=== PATIENT | male | born 1935 | race Caucasian/White ===

== ENCOUNTER → 2023-04-25 12:14 | Outpatient (REF) | payer BC, SELFPAY ==
[2023-04-25 13:50] LABS: PSA, Total - Diagnostic 0.71 ng/ml (0.0-4.0)
== END ==
LOC: REG 12:14
PROVIDERS: ATTENDING PHYSICIAN Internal Medicine Hematology & Oncology; FAMILY PHYSICIAN Family Medicine; REFERRING PHYSICIAN Internal Medicine
DX: C61 Malignant neoplasm of prostate (principal); C79.51 Secondary malignant neoplasm of bone
CPT/HCPCS: 36415; 84153

== ENCOUNTER → 2023-06-07 09:38 | Outpatient (REF) | payer BC, SELFPAY ==
[2023-06-07 10:13] LABS: % Basophils 0.8 % (0-2); % Eosinophils 5.2 % (0-6); % Immature Granulocytes 0.4 % (0-0.5); % Lymphocytes 8.9 % (20.5-51.1); % Monocytes 9.9 % (1.7-9.3); % Neutrophils 74.8 % (42.2-75.2); Absolute Eosinophils 0.3 10^3/uL (0-0.7); Absolute Lymphocytes 0.4 10^3/uL (1.2-3.4); Absolute Monocytes 0.5 10^3/uL (0.1-0.6); Absolute Neutrophils 3.7 10^3/uL (1.4-6.5); Hematocrit 37.8 % (39.0-52.0); Hemoglobin 12.3 g/dL (13.0-18.0); Mean Corp Hgb Conc. 32.5 g/dL (33.0-37.0); Mean Corpuscular Hgb 30.8 pg (27.0-31.0); Mean Corpuscular Volume 94.5 fL (80.0-94.0); Mean Platelet Volume 10.5 fL (7.4-10.4); Nucleated Red Blood Cells % 0 % (-); Platelet Count 188 10^3/uL (130-400); Red Cell Dist. Width 13.2 % (11.5-14.5)
[2023-06-07 10:40] LABS: ALT (SGPT) 19 U/L (0-50); AST (SGOT) 33 U/L (17-59); Albumin 3.9 g/dl (3.5-5.0); Alkaline Phosphatase 95 U/L (38-126); Blood Urea Nitrogen 18 mg/dl (9-20); Calcium 9.5 mg/dl (8.4-10.2); Carbon Dioxide 32 mmol/L (22-30); Chloride 101 mmol/L (98-107); Glucose 101 mg/dl (70-99); Potassium 4.4 mmol/L (3.5-5.1); Sodium 139 mmol/L (135-145); Total Bilirubin 0.4 mg/dl (0.2-1.3); Total Protein 6.4 g/dl (6.3-8.2); eGFR > 60.00
[2023-06-07 11:10] LABS: PSA, Total - Diagnostic 0.78 ng/ml (0.0-4.0)
== END ==
LOC: REG 09:38
PROVIDERS: ATTENDING PHYSICIAN Internal Medicine Hematology & Oncology; FAMILY PHYSICIAN Family Medicine; REFERRING PHYSICIAN Internal Medicine
DX: C61 Malignant neoplasm of prostate (principal); C79.51 Secondary malignant neoplasm of bone
CPT/HCPCS: 36415; 80053; 84153; 85025

== ENCOUNTER → 2023-07-20 08:46 | Outpatient (REF) | payer BC, SELFPAY ==
[2023-07-20 12:37] LABS: PSA, Total - Diagnostic 0.73 ng/ml (0.0-4.0)
== END ==
LOC: REG 08:46
PROVIDERS: ATTENDING PHYSICIAN Internal Medicine Hematology & Oncology; FAMILY PHYSICIAN Family Medicine
DX: C61 Malignant neoplasm of prostate (principal); C79.51 Secondary malignant neoplasm of bone
CPT/HCPCS: 36415; 84153

== ENCOUNTER → 2023-09-15 08:51 | Outpatient (REF) | payer BC, SELFPAY ==
[2023-09-15 11:02] LABS: ALT (SGPT) 22 U/L (0-50); AST (SGOT) 37 U/L (17-59); Albumin 4.3 g/dl (3.5-5.0); Alkaline Phosphatase 94 U/L (38-126); Blood Urea Nitrogen 21 mg/dl (9-20); Calcium 10.2 mg/dl (8.4-10.2); Carbon Dioxide 29 mmol/L (22-30); Chloride 105 mmol/L (98-107); Glucose 90 mg/dl (70-99); Potassium 5.2 mmol/L (3.5-5.1); Sodium 141 mmol/L (135-145); Total Bilirubin 0.5 mg/dl (0.2-1.3); eGFR > 60.00
[2023-09-15 11:26] LABS: PSA, Total - Diagnostic 1.04 ng/ml (0.0-4.0)
== END ==
LOC: REG 08:51
PROVIDERS: ATTENDING PHYSICIAN Internal Medicine Hematology & Oncology; FAMILY PHYSICIAN Family Medicine
DX: C61 Malignant neoplasm of prostate (principal); C79.51 Secondary malignant neoplasm of bone
CPT/HCPCS: 36415; 80053; 84153

== ENCOUNTER → 2023-10-12 12:43 | Outpatient (REF) | payer BC, SELFPAY ==
[2023-10-12 14:51] LABS: ALT (SGPT) 24 U/L (0-50); AST (SGOT) 39 U/L (17-59); Albumin 4.4 g/dl (3.5-5.0); Alkaline Phosphatase 98 U/L (38-126); Blood Urea Nitrogen 23 mg/dl (9-20); Calcium 9.8 mg/dl (8.4-10.2); Carbon Dioxide 25 mmol/L (22-30); Chloride 105 mmol/L (98-107); Glucose 88 mg/dl (70-99); Potassium 4.5 mmol/L (3.5-5.1); Sodium 139 mmol/L (135-145); Total Bilirubin 0.6 mg/dl (0.2-1.3); eGFR > 60.00
[2023-10-12 15:22] LABS: PSA, Total - Diagnostic 0.98 ng/ml (0.0-4.0)
== END ==
LOC: REG 12:43
PROVIDERS: ATTENDING PHYSICIAN Internal Medicine Hematology & Oncology; FAMILY PHYSICIAN Family Medicine; REFERRING PHYSICIAN Internal Medicine
DX: C61 Malignant neoplasm of prostate (principal); C79.51 Secondary malignant neoplasm of bone
CPT/HCPCS: 36415; 80053; 84153

== ENCOUNTER → 2023-12-07 08:50 | Outpatient (REF) | payer BC, SELFPAY ==
[2023-12-07 10:13] LABS: % Basophils 1.3 % (0-2); % Eosinophils 7.4 % (0-6); % Immature Granulocytes 0.2 % (0-0.5); % Lymphocytes 11.6 % (20.5-51.1); % Monocytes 11.8 % (1.7-9.3); % Neutrophils 67.7 % (42.2-75.2); Absolute Basophils 0.1 10^3/uL (0-0.2); Absolute Eosinophils 0.3 10^3/uL (0-0.7); Absolute Lymphocytes 0.5 10^3/uL (1.2-3.4); Absolute Monocytes 0.5 10^3/uL (0.1-0.6); Hematocrit 36.3 % (39.0-52.0); Hemoglobin 11.9 g/dL (13.0-18.0); Mean Corp Hgb Conc. 32.8 g/dL (33.0-37.0); Mean Corpuscular Hgb 30.1 pg (27.0-31.0); Mean Corpuscular Volume 91.7 fL (80.0-94.0); Mean Platelet Volume 11.2 fL (7.4-10.4); Nucleated Red Blood Cells % 0 % (-); Platelet Count 161 10^3/uL (130-400); Red Blood Cell Count 3.96 10^6/uL (4.70-6.10); Red Cell Dist. Width 13.2 % (11.5-14.5); White Blood Cell Count 4.5 10^3/uL (4.8-10.8)
[2023-12-07 11:22] LABS: ALT (SGPT) 25 U/L (0-50); AST (SGOT) 40 U/L (17-59); Albumin 4.4 g/dl (3.5-5.0); Alkaline Phosphatase 86 U/L (38-126); Blood Urea Nitrogen 22 mg/dl (9-20); Calcium 9.8 mg/dl (8.4-10.2); Carbon Dioxide 28 mmol/L (22-30); Chloride 102 mmol/L (98-107); Glucose 84 mg/dl (70-99); Potassium 4.5 mmol/L (3.5-5.1); Sodium 141 mmol/L (135-145); Total Bilirubin 0.6 mg/dl (0.2-1.3); Total Protein 6.8 g/dl (6.3-8.2); eGFR > 60.00
[2023-12-07 11:48] LABS: PSA, Total - Diagnostic 1.16 ng/ml (0.0-4.0)
== END ==
LOC: REG 08:50
PROVIDERS: ATTENDING PHYSICIAN Internal Medicine Hematology & Oncology; FAMILY PHYSICIAN Family Medicine; REFERRING PHYSICIAN Internal Medicine
DX: C61 Malignant neoplasm of prostate (principal); C79.51 Secondary malignant neoplasm of bone
CPT/HCPCS: 36415; 80053; 84153; 85025

== ENCOUNTER → 2024-02-23 10:16 | Outpatient (REF) | payer BC, SELFPAY ==
[2024-02-23 12:41] LABS: HDL Cholesterol 73 mg/dl; LDL Cholesterol, Calculated 112 mg/dl; Total Cholesterol 202 mg/dl (50-199); Triglyceride 89 mg/dl (10-149); Very Low Density Lipoprotein 17 mg/dl (0-30)
== END ==
LOC: REG 10:16
PROVIDERS: ATTENDING PHYSICIAN Internal Medicine; FAMILY PHYSICIAN Family Medicine
DX: E78.2 Mixed hyperlipidemia (principal)
CPT/HCPCS: 36415; 80061

== ENCOUNTER 2024-03-22 06:24 | Day surgery (SDC) | payer MEDICARE, BC, SELFPAY ==
[2024-03-08 10:45] LABS: Hematocrit 39.5 % (39.0-52.0); Hemoglobin 12.5 g/dL (13.0-18.0); Mean Corp Hgb Conc. 31.6 g/dL (33.0-37.0); Mean Corpuscular Hgb 30.6 pg (27.0-31.0); Mean Corpuscular Volume 96.6 fL (80.0-94.0); Mean Platelet Volume 12.1 fL (7.4-10.4); Platelet Count 147 10^3/uL (130-400); Red Blood Cell Count 4.09 10^6/uL (4.70-6.10); Red Cell Dist. Width 13.6 % (11.5-14.5); White Blood Cell Count 4.5 10^3/uL (4.8-10.8)
[2024-03-08 10:54] LABS: APTT 30.4 Sec (23.4-35.0); INR 0.99; PT 13.6 Sec (11.4-14.6)
[2024-03-08 11:32] LABS: Blood Urea Nitrogen 19 mg/dl (9-20); Calcium 9.4 mg/dl (8.4-10.2); Carbon Dioxide 32 mmol/L (22-30); Chloride 100 mmol/L (98-107); Glucose 88 mg/dl (70-99); Potassium 4.1 mmol/L (3.5-5.1); Sodium 139 mmol/L (135-145); eGFR > 60.00
[2024-03-08 12:30] VITALS: BMI 26.4
[2024-03-22] VITALS (18 sets, daily range): BP systolic 97–163; BP diastolic 60–104; BMI 26.4
[2024-03-22] MEDS: NORMOSOL-R/PLASMALYTE-A 1000 IV (09:39)
--- NOTE | 2024-03-22 13:07 | W.IMMPOSTOP ---
Surgical Immed Post Op Note
-
Primary Surgeon: Kalina
Assisting Surgeon: none
Pre-op Diagnosis: BPH, prostate cancer, urethral polyp
Post-op Diagnosis: same
Procedure Performed: TURP, prostatic urethral biopsy
Anesthesia Type: gen
Specimen / Cultures: urethral poly
Estimated Blood Loss: 5cc
Complications: none
Operative Findings: pocket of necrotic tumor within prostate just proximal to verumontanum on L side
[2024-03-22] MEDS: SUBLIMAZE 50 MCG IV (13:13)
[2024-03-22] MEDS: DETROL LA 4 MG PO (14:20)
[2024-03-22] MEDS: LASIX 40 MG PO (20:41)
[2024-03-22] MEDS: VIBRAMYCIN 100 MG PO (20:41)
[2024-03-22] MEDS: FEOSOL 325 MG PO (20:42)
[2024-03-22] MEDS: MELATONIN 6 MG PO (21:06)
[2024-03-23 03:09] VITALS: BMI 26.4
[2024-03-23 06:00] VITALS: BMI 25.7
[2024-03-23] MEDS: VIBRAMYCIN 100 MG PO (07:34)
[2024-03-23 07:35] VITALS: BP 146/88
[2024-03-23] MEDS: FEOSOL 325 MG PO (07:35)
[2024-03-23] MEDS: FLOMAX 0.4 MG PO (07:35)
[2024-03-23] MEDS: METAMUCIL, KONSYL 1 PACKET PO (07:35)
[2024-03-23] MEDS: TOPROL XL 25 MG PO (07:35)
[2024-03-23] MEDS: LASIX 40 MG PO (07:35)
[2024-03-23 08:53] LABS: Hematocrit 33.6 % (39.0-52.0); Hemoglobin 11.2 g/dL (13.0-18.0); Mean Corp Hgb Conc. 33.3 g/dL (33.0-37.0); Mean Corpuscular Hgb 30.4 pg (27.0-31.0); Mean Corpuscular Volume 91.3 fL (80.0-94.0); Mean Platelet Volume 10.9 fL (7.4-10.4); Platelet Count 141 10^3/uL (130-400); Red Blood Cell Count 3.68 10^6/uL (4.70-6.10); Red Cell Dist. Width 13.1 % (11.5-14.5); White Blood Cell Count 8.2 10^3/uL (4.8-10.8)
--- NOTE | 2024-03-23 09:03 | W.PN.URO.CBU ---
Today's Communication / Plan
-
Trial of void
Assessment / Plan
-
89M POD 1 s/p TURP, urethral biopsy
- remove landa
- trial of void
- likely discharge
Diagnosis
-
Date of Service: March 23, 2024
-
Patient Diagnosis:
BPH
Prostate cancer
urethral polyp
Post Op Day: 1 s/p TURP, urethral biopsy
Subjective
-
no events overnight
Objective
-
Vital Signs
Temp Pulse Resp BP Pulse Ox
97.6 F 71 16 146/88 97
03/23/24 07:35 03/23/24 07:35 03/23/24 07:35 03/23/24 07:35 03/23/24 07:35
Intake and Output
03/22/24 03/23/24 03/24/24
06:59 06:59 06:59
Intake Total 1455 / 1455
Output Total 5250 / 5250
Balance -3795 / -3795
Intake:
Oral fluids 480 / 480
IV fluids (Total) 975 / 975
Normosol 300 / 300
Output:
Urine, Landa 1999 / 1999
Urine, Voided 1100 / 1100
True Urine Output from [facility] 2149 / 2149
Laboratory Results
03/23/24 07:27
Physical Exam
-
General - well developed, well nourished, no acute distress
Chest - clear
Abdomen - soft, non-tender
- landa in place, clear urine slow [facility]
--- NOTE | 2024-03-23 09:27 | PTCARENOTE ---
Gallagher taken out per
[2024-03-23 09:53] LABS: Blood Urea Nitrogen 19 mg/dl (9-20); Calcium 9.2 mg/dl (8.4-10.2); Carbon Dioxide 27 mmol/L (22-30); Chloride 99 mmol/L (98-107); Estimated Creatinine Clearance 52 ml/min; Glucose 108 mg/dl (70-99); Potassium 3.9 mmol/L (3.5-5.1); Sodium 137 mmol/L (135-145); eGFR > 60.00
--- NOTE | 2024-03-23 12:24 | CM ---
Patient seen bedside, patient admitted same day surgery, initial assessment completed. Patient resides independently in a private home, multiple levels, a few steps to enter. Patient denies the use of DME at home, reports VN in the past, [facility]
in past. Patient confirms PCP Maurisio Barajas, pharmacy [facility], confirms prescription coverage. Patient denies needs from CM upon discharge, confirms he has transportation home. CM will continue to follow for all discharge planning needs.
Plan; home with no needs.
[2024-03-23 15:44] VITALS: BP 138/85
== END 2024-03-23 16:38 | disposition home or self-care (01) ==
LOC: SDS 06:24
PROVIDERS: ATTENDING PHYSICIAN Urology; FAMILY PHYSICIAN Family Medicine; OTHER PHYSICIAN Internal Medicine
DX: C61 Malignant neoplasm of prostate (principal); N40.1 Benign prostatic hyperplasia with lower urinary tract symptoms; N36.2 Urethral caruncle; N13.8 Other obstructive and reflux uropathy; C79.19 Secondary malignant neoplasm of other urinary organs
CPT/HCPCS: 52601; 52224; 88305; 36415; 80048; 85027; 85610; 85730

== ENCOUNTER → 2024-04-06 10:56 | Outpatient (REF) | payer MEDICARE, BC, SELFPAY | LOC: CLAB 10:56 | PROVIDERS: ATTENDING PHYSICIAN Urology; FAMILY PHYSICIAN Family Medicine | DX: N39.0 Urinary tract infection, site not specified (principal) | CPT/HCPCS: 87086 ==

== ENCOUNTER 2024-04-24 08:29 | Emergency (ER) | payer MEDICARE, BC, SELFPAY ==
[2024-04-24] VITALS (9 sets, daily range): BP systolic 121–147; BP diastolic 71–90; BMI 23.3
--- NOTE | 2024-04-24 08:48 | ED.GENMED ---
ED Provider Triage
<Johnny Lane PA-C - Last Filed: 04/24/24 08:50>
-
Patient seen by provider in Triage?: Seen in Triage
Attestation: A medical screening examination has been initiated by a qualified medical provider. Based on the assessment performed at this time, it has been determined that an emergent medical condition may exist and the patient has been informed
that further medical evaluation and possible additional diagnostic testing may be needed.
HPI: 89-year-old male presents to the emergency department for evaluation of left post ocular pain associated with dizziness/lightheadedness and vision changes. He reports blurry vision yesterday, diplopia this morning however vision symptoms have
now resolved. Did not perform cover-uncover testing. Was able to ambulate into the ED without gait deficit. No chest pain or shortness of breath
GENERAL: Alert , in no apparent distress
EYE: No visual abnormalities.
NECK: Trachea midline
ENT: No visible abnormalities.
LUNGS: No acute respiratory distress
NEUROLOGICAL: Alert and oriented. Moving all extremities freely. No extraocular motion deficits appreciable on exam
SKIN: Skin intact. No visible changes.
MUSCULOSKELETAL: Moving extremities normally
PSYCH: Normal and appropriate interaction.
This is a medical evaluation conducted in person to initiate diagnostic evaluation and provide initial therapeutics. Please see further documentation by the treating clinician.
History of Present Illness
<Johnny Lane PA-C - Last Filed: 04/24/24 08:50>
General
Chief Complaint: Visual Problem
Time Seen by Provider: 04/24/24 10:58
<Chris Mohan PA-C - Last Filed: 04/24/24 17:59>
General
Source: patient
Exam Limitations: none
History of Present Illness
History of Present Illness:
89-year-old male presents complaining of pain behind his left eye for about 1 week. He also notes blurry vision out of both eyes. Occasionally the vision is double out of both eyes. He denies any unilateral arm numbness or weakness. No chest
pain abdominal pain or shortness of breath. No neck pain. He is on Xarelto for history of A-fib and has a pacemaker. No fevers. No other complaints at this time
Past History
<Johnny Lane PA-C - Last Filed: 04/24/24 08:50>
Past History
ED Past Medical History: Arrthythmia and Cancer
ED Past Surgical History: Orthopedic, Urological and Other (Pacemaker placement inguinal hernia)
Social History
Tobacco: Non-smoker
Alcohol: None
Drug: None
Personal:
Living: with family
Employment: Retired
Family History
Family History: Other (Noncontributory)
Phy Exam
<Chris Mohan PA-C - Last Filed: 04/24/24 17:59>
Physical Exam
Physical Exam:
General: Well-appearing male no acute respiratory distress
HEENT: Normocephalic atraumatic pupils equal round reactive to light extract motions are intact
Heart: Regular rate and rhythm no murmurs
Lungs: Clear no wheeze
Neurologic exam: Alert and oriented no facial asymmetry no drift finger-nose [id number] intact. No dysarthria or aphasia. Visual davis intact
Extremities: No cyanosis
Course
<Johnny Lane PA-C - Last Filed: 04/24/24 08:50>
Orders/Labs/Results
Orders:
Orders
04/24/24 08:49
Electrocardiogram (*1) Urgent
Reason for Study: Vertigo / Dizzy
CT Head W/o Iv Contrast Urgent
Comment:
Reason For Exam: headache/lightheaded/blurry vision
EKG- Treatment ONCE
04/24/24 08:52
C-Reactive Protein Urgent
Comment: ADD ON
Complete Blood Count/With Diff Urgent
Comprehensive Metabolic Panel Urgent
Erythrocyte Sed Rate Urgent
Comment: ADD ON
04/24/24 11:12
Add On- LAB Urgent
Tests Added?: sed rate, crp
04/24/24 13:01
Acetaminophen [Tylenol] 650 mg .ROUTE .STK-MED ONE
04/24/24 13:02
Acetaminophen [Tylenol] 650 mg PO NOW STA
04/24/24 13:11
0.9% Sodium Chloride 500 ml [Nss] 500 ml IV BOLUS
Prochlorperazine [Compazine] 5 mg IV NOW STA
04/24/24 13:24
Urinalysis Reflex To Culture Urgent
Date Specimen was Collected: 04/24/24
Time Specimen was Collected: 13:08
Urine Microscopic Reflex Cult Urgent
Urine Culture Urgent
RERE Source: U
Specimen Description:
Date Specimen was Collected: 04/24/24
Time Specimen was Collected: 13:08
04/24/24 16:08
Diphenhydramine [Benadryl] 25 mg IV NOW STA
Metoclopramide [Reglan] 10 mg IV NOW STA
04/24/24 16:28
CefTRIAXone [Rocephin] 1,000 mg IV NOW STA
Abnormal Lab Results
04/24/24 04/24/24
08:52 13:24
RBC 3.32 L 10^6/uL
(4.70-6.10)
Hgb 10.1 L g/dL
(13.0-18.0)
Hct 31.9 L %
(39.0-52.0)
MCV 96.1 H fL
(80.0-94.0)
MCHC 31.7 L g/dL
(33.0-37.0)
RDW 14.6 H %
(11.5-14.5)
Absolute Lymphs (auto) 0.3 L 10^3/uL
(1.2-3.4)
Neutrophils % 78.5 H %
(42.2-75.2)
Lymphocytes % 5.5 L %
(20.5-51.1)
Monocytes % 10.4 H %
(1.7-9.3)
ESR 50 H mm/hour
(0-20)
BUN 27 H mg/dl
(9-20)
Alkaline Phosphatase 135 H U/L
(38-126)
C-Reactive Protein 10.50 H mg/L
(0.0-10.00)
Ur Occult Blood Reflex 4+ A
(Negative)
Leukocyte Esterase Rfl 3+ A
(Negative)
Urine RBC 50-60 A /HPF
(0-2)
Urine WBC (Reflex) 30-40 A /HPF
(0-5)
Urine Bacteria (Reflex) Few A
(Negative)
Urine Albumin (Reflex) 2+ A
(Neg - Trace)
04/24/24 08:52
04/24/24 08:52
Vital Signs
Initial and Last Documented VS:
Initial Vital Signs
Temp Pulse Resp BP Pulse Ox
98.6 F 74 16 123/75 99
04/24/24 08:45 04/24/24 08:45 04/24/24 08:45 04/24/24 08:45 04/24/24 08:45
Last Documented Vital Signs
Temp Pulse Resp BP Pulse Ox
98.6 F 91 16 146/90 98
04/24/24 08:45 04/24/24 13:15 04/24/24 13:15 04/24/24 13:14 04/24/24 12:00
<Chris Mohan PA-C - Last Filed: 04/24/24 17:59>
Orders/Labs/Results
Orders:
Orders
04/24/24 08:49
Electrocardiogram (*1) Urgent
Reason for Study: Vertigo / Dizzy
CT Head W/o Iv Contrast Urgent
Comment:
Reason For Exam: headache/lightheaded/blurry vision
EKG- Treatment ONCE
04/24/24 08:52
C-Reactive Protein Urgent
Comment: ADD ON
Complete Blood Count/With Diff Urgent
Comprehensive Metabolic Panel Urgent
Erythrocyte Sed Rate Urgent
Comment: ADD ON
04/24/24 11:12
Add On- LAB Urgent
Tests Added?: sed rate, crp
04/24/24 13:01
Acetaminophen [Tylenol] 650 mg .ROUTE .STK-MED ONE
04/24/24 13:02
Acetaminophen [Tylenol] 650 mg PO NOW STA
04/24/24 13:11
0.9% Sodium Chloride 500 ml [Nss] 500 ml IV BOLUS
Prochlorperazine [Compazine] 5 mg IV NOW STA
04/24/24 13:24
Urinalysis Reflex To Culture Urgent
Date Specimen was Collected: 04/24/24
Time Specimen was Collected: 13:08
Urine Microscopic Reflex Cult Urgent
Urine Culture Urgent
RERE Source: U
Specimen Description:
Date Specimen was Collected: 04/24/24
Time Specimen was Collected: 13:08
04/24/24 16:08
Diphenhydramine [Benadryl] 25 mg IV NOW STA
Metoclopramide [Reglan] 10 mg IV NOW STA
04/24/24 16:28
CefTRIAXone [Rocephin] 1,000 mg IV NOW STA
Abnormal Lab Results
04/24/24 04/24/24
08:52 13:24
RBC 3.32 L 10^6/uL
(4.70-6.10)
Hgb 10.1 L g/dL
(13.0-18.0)
Hct 31.9 L %
(39.0-52.0)
MCV 96.1 H fL
(80.0-94.0)
MCHC 31.7 L g/dL
(33.0-37.0)
RDW 14.6 H %
(11.5-14.5)
Absolute Lymphs (auto) 0.3 L 10^3/uL
(1.2-3.4)
Neutrophils % 78.5 H %
(42.2-75.2)
Lymphocytes % 5.5 L %
(20.5-51.1)
Monocytes % 10.4 H %
(1.7-9.3)
ESR 50 H mm/hour
(0-20)
BUN 27 H mg/dl
(9-20)
Alkaline Phosphatase 135 H U/L
(38-126)
C-Reactive Protein 10.50 H mg/L
(0.0-10.00)
Ur Occult Blood Reflex 4+ A
(Negative)
Leukocyte Esterase Rfl 3+ A
(Negative)
Urine RBC 50-60 A /HPF
(0-2)
Urine WBC (Reflex) 30-40 A /HPF
(0-5)
Urine Bacteria (Reflex) Few A
(Negative)
Urine Albumin (Reflex) 2+ A
(Neg - Trace)
04/24/24 08:52
04/24/24 08:52
Vital Signs
Initial and Last Documented VS:
Initial Vital Signs
Temp Pulse Resp BP Pulse Ox
98.6 F 74 16 123/75 99
04/24/24 08:45 04/24/24 08:45 04/24/24 08:45 04/24/24 08:45 04/24/24 08:45
Last Documented Vital Signs
Temp Pulse Resp BP Pulse Ox
98.6 F 91 16 146/90 98
04/24/24 08:45 04/24/24 13:15 04/24/24 13:15 04/24/24 13:14 04/24/24 12:00
<Ezequiel Chamberlain, DO - Last Filed: 04/24/24 13:15>
Orders/Labs/Results
Orders:
Orders
04/24/24 08:49
Electrocardiogram (*1) Urgent
Reason for Study: Vertigo / Dizzy
CT Head W/o Iv Contrast Urgent
Comment:
Reason For Exam: headache/lightheaded/blurry vision
EKG- Treatment ONCE
04/24/24 08:52
C-Reactive Protein Urgent
Comment: ADD ON
Complete Blood Count/With Diff Urgent
Comprehensive Metabolic Panel Urgent
Erythrocyte Sed Rate Urgent
Comment: ADD ON
04/24/24 11:12
Add On- LAB Urgent
Tests Added?: sed rate, crp
04/24/24 13:01
Acetaminophen [Tylenol] 650 mg .ROUTE .STK-MED ONE
04/24/24 13:02
Acetaminophen [Tylenol] 650 mg PO NOW STA
04/24/24 13:11
0.9% Sodium Chloride 500 ml [Nss] 500 ml IV BOLUS
Prochlorperazine [Compazine] 5 mg IV NOW STA
04/24/24 13:24
Urinalysis Reflex To Culture Urgent
Date Specimen was Collected: 04/24/24
Time Specimen was Collected: 13:08
Urine Microscopic Reflex Cult Urgent
Urine Culture Urgent
RERE Source: U
Specimen Description:
Date Specimen was Collected: 04/24/24
Time Specimen was Collected: 13:08
04/24/24 16:08
Diphenhydramine [Benadryl] 25 mg IV NOW STA
Metoclopramide [Reglan] 10 mg IV NOW STA
04/24/24 16:28
CefTRIAXone [Rocephin] 1,000 mg IV NOW STA
Abnormal Lab Results
04/24/24 04/24/24
08:52 13:24
RBC 3.32 L 10^6/uL
(4.70-6.10)
Hgb 10.1 L g/dL
(13.0-18.0)
Hct 31.9 L %
(39.0-52.0)
MCV 96.1 H fL
(80.0-94.0)
MCHC 31.7 L g/dL
(33.0-37.0)
RDW 14.6 H %
(11.5-14.5)
Absolute Lymphs (auto) 0.3 L 10^3/uL
(1.2-3.4)
Neutrophils % 78.5 H %
(42.2-75.2)
Lymphocytes % 5.5 L %
(20.5-51.1)
Monocytes % 10.4 H %
(1.7-9.3)
ESR 50 H mm/hour
(0-20)
BUN 27 H mg/dl
(9-20)
Alkaline Phosphatase 135 H U/L
(38-126)
C-Reactive Protein 10.50 H mg/L
(0.0-10.00)
Ur Occult Blood Reflex 4+ A
(Negative)
Leukocyte Esterase Rfl 3+ A
(Negative)
Urine RBC 50-60 A /HPF
(0-2)
Urine WBC (Reflex) 30-40 A /HPF
(0-5)
Urine Bacteria (Reflex) Few A
(Negative)
Urine Albumin (Reflex) 2+ A
(Neg - Trace)
04/24/24 08:52
04/24/24 08:52
Vital Signs
Initial and Last Documented VS:
Initial Vital Signs
Temp Pulse Resp BP Pulse Ox
98.6 F 74 16 123/75 99
04/24/24 08:45 04/24/24 08:45 04/24/24 08:45 04/24/24 08:45 04/24/24 08:45
Last Documented Vital Signs
Temp Pulse Resp BP Pulse Ox
98.6 F 91 16 146/90 98
04/24/24 08:45 04/24/24 13:15 04/24/24 13:15 04/24/24 13:14 04/24/24 12:00
<Chris Mohan PA-C - Last Filed: 04/24/24 17:59>
MDM/Problems Addressed
Differential Diagnosis Includes:
Patient notes generalized unwell sensation with occasional double vision as well as a headache behind the left eye. Consider vasculitis versus CVA versus migraine versus other infectious source
CT head negative. Labs reviewed without significant finding. Urinalysis does suggest urinary tract infection. Concern for possible migraine causing symptoms. Given Hood notes improvement. Now ambulatory. Discussed with
neurology. No indication for admission at this time. Discussed with emergency room attending. Will give Rocephin here for UTI and sent home on Keflex with instructions to follow-up with family doctor
<Chris Mohan PA-C - Last Filed: 04/24/24 17:59>
*Critical Care Note
Total Time (30-74mins, 75-104mins- exclusive of procedures): Not Applicable
ED Attending Note
<Johnny Lane PA-C - Last Filed: 04/24/24 08:50>
-
Portions of this chart may have been created with voice recognition software.� Occasional wrong word or��sound alike� substitutions may have occurred due to the inherent limitations of voice recognition software.
<Ezequiel Chamberlain DO - Last Filed: 04/24/24 13:15>
ED Attending Note
Patient seen and examined by attending physician: Yes
I performed the substantive portion of visit, reviewed & personally made and approve the management plan that is documented in note by myself or CLEVE.: Yes
ED Attending Note:
Seen with PA examined independently 89-year-old male history of brain cancer as a child, no residual seizures, occasionally gets migraines through his adult life none recently has been having some headaches pain behind his eye recently double
vision, CAT scan noted inflammatory markers are noted we will try fluids and Compazine hold on NSAIDs as he is on Xarelto
Discharge Plan
Departure
Patient Disposition: Home (Routine Discharge)
Date of Disposition: 04/24/24
Time of Disposition: 17:53
Patient with high blood pressure during this ER visit?: No
Discharge Problem:
Headache, Acute UTI
Instructions: Headache, Adult (DC)
Prescriptions:
New
cefdinir 300 mg capsule
300 mg PO BID Qty: 14 0RF
No Action
metoprolol succinate 25 MG tablet extended release 24 hr
25 mg PO DAILY
Patient Comments:
05/01/21 HOLD for sbp<110
Xarelto 20 MG tablet
20 mg PO DAILY
furosemide 40 MG tablet
40 mg PO BID
multivitamin Tablet
1 tab PO 1400
psyllium Packet
1 packet PO DAILY
doxycycline monohydrate 100 mg Capsule
100 mg PO BID
ferrous sulfate 325 mg (65 mg iron) Tablet
325 mg PO BID
Phospha 250 Neutral 250 mg Tablet
1 tab PO 1400
tamsulosin 0.4 MG capsule
0.4 mg PO DAILY
Referrals:
Maurisio Barajas MD [Family Provider] -
Activity Restrictions/Additional Instructions:
Take antibiotics as directed return here for [place] otherwise follow-up with your doctor
Interventions
Interventions:
*Risk Screen - Suicide Last Done: 04/24/24 08:47
*General Assessment Last Done: 04/24/24 11:37
*Neglect/Abuse Screening Last Done: 04/24/24 08:47
*ED COVID-19 Vaccine History Last Done: 04/24/24 11:37
ED- Neurological Assessment Last Done: 04/24/24 11:40
ED-EENT Assessment Last Done: 04/24/24 11:40
ED Swallowing Screen Last Done: 04/24/24 11:42
Discharge Date and Time
Print Language: [id number]
[2024-04-24 09:19] LABS: % Basophils 0.7 % (0-2); % Eosinophils 4.4 % (0-6); % Immature Granulocytes 0.5 % (0-0.5); % Lymphocytes 5.5 % (20.5-51.1); % Monocytes 10.4 % (1.7-9.3); % Neutrophils 78.5 % (42.2-75.2); Absolute Eosinophils 0.3 10^3/uL (0-0.7); Absolute Lymphocytes 0.3 10^3/uL (1.2-3.4); Absolute Monocytes 0.6 10^3/uL (0.1-0.6); Absolute Neutrophils 4.6 10^3/uL (1.4-6.5); Hematocrit 31.9 % (39.0-52.0); Hemoglobin 10.1 g/dL (13.0-18.0); Mean Corp Hgb Conc. 31.7 g/dL (33.0-37.0); Mean Corpuscular Hgb 30.4 pg (27.0-31.0); Mean Corpuscular Volume 96.1 fL (80.0-94.0); Mean Platelet Volume 10.1 fL (7.4-10.4); Nucleated Red Blood Cells % 0 % (-); Platelet Count 198 10^3/uL (130-400); Red Blood Cell Count 3.32 10^6/uL (4.70-6.10); Red Cell Dist. Width 14.6 % (11.5-14.5); White Blood Cell Count 5.9 10^3/uL (4.8-10.8)
[2024-04-24 09:44] LABS: ALT (SGPT) 22 U/L (0-50); AST (SGOT) 40 U/L (17-59); Albumin 4.4 g/dl (3.5-5.0); Alkaline Phosphatase 135 U/L (38-126); Blood Urea Nitrogen 27 mg/dl (9-20); Calcium 9.2 mg/dl (8.4-10.2); Carbon Dioxide 30 mmol/L (22-30); Chloride 98 mmol/L (98-107); Glucose 90 mg/dl (70-99); Potassium 4.1 mmol/L (3.5-5.1); Sodium 137 mmol/L (135-145); Total Bilirubin 0.3 mg/dl (0.2-1.3); Total Protein 7.2 g/dl (6.3-8.2); eGFR 58.53
[2024-04-24 11:59] LABS: Erythrocyte Sed Rate 50 mm/hour (0-20)
[2024-04-24] MEDS: TYLENOL 650 MG PO (13:02)
[2024-04-24] MEDS: NSS 500 IV (13:21)
[2024-04-24] MEDS: COMPAZINE 5 MG IV (13:22)
[2024-04-24 13:46] LABS: Urine Albumin 2+ (Neg - Trace); Urine Bilirubin Negative (Negative); Urine Character Slightly Cloudy (Clear); Urine Color Yellow; Urine Glucose Negative (Negative); Urine Ketone Negative (Negative); Urine Leukocyte 3+ (Negative); Urine Nitrite Negative (Negative); Urine Occult Blood 4+ (Negative); Urine Specific Gravity 1.015 (<1.030); Urine Urobilinogen Negative (Neg - 1+)
[2024-04-24 14:03] LABS: Urine Squamous Cell 0-2 /LPF (Few)
[2024-04-24 14:04] LABS: Urine Bacteria Few (Negative); Urine Red Blood Cell 50-60 /HPF (0-2); Urine White Cell 30-40 /HPF (0-5)
[2024-04-24] MEDS: BENADRYL 25 MG IV (16:18)
[2024-04-24] MEDS: REGLAN 10 MG IV (16:19)
[2024-04-24] MEDS: ROCEPHIN 1000 MG IV (16:46)
== END 2024-04-24 18:23 | disposition home or self-care (01) ==
LOC: EMR 08:29
PROVIDERS: Physician Assistant; EMERGENCY PHYSICIAN Emergency Medicine; FAMILY PHYSICIAN Family Medicine
DX: N39.0 Urinary tract infection, site not specified (principal); R51.9 Headache, unspecified; I48.91 Unspecified atrial fibrillation; Z79.01 Long term (current) use of anticoagulants; Z95.0 Presence of cardiac pacemaker
CPT/HCPCS: 96374; 96375; 96361; 99284; 70450; 80053; 81003; 81015; 85025; 85652; 86140; 87086; 93005

== ENCOUNTER 2024-04-26 18:25 | Inpatient (IN) | payer MEDICARE, BC, SELFPAY ==
[2024-04-26] VITALS (9 sets, daily range): BP systolic 123–154; BP diastolic 70–102; BMI 23.6
--- NOTE | 2024-04-26 13:17 | ED.GENMED ---
History of Present Illness
<Allyn Dawson PA-C - Last Filed: 04/26/24 18:03>
General
Chief Complaint: Visual Problem
Source: patient
Exam Limitations: none
Time Seen by Provider: 04/26/24 13:10
Nursing documentation reviewed up to this point in time: agreed with
History of Present Illness
History of Present Illness:
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
Here for the second time in 2 days for diplopia from his left eye. Patient says it actually was preceded by a headache behind his left eye gradually several days before the diplopia started. He said he felt a pressure behind his eye that became
uncomfortable. Then he noticed that when he had his left eye open he would see blurred vision. It ultimately ended up progressing to diplopia and he was seen here on . Patient had labs and a noncontrasted head CT. At that time the only
abnormality was really a urine that looked infected. Ultimately the urine culture was no growth so the antibiotics were stopped at the family spoke with urology. Patient had a CT showing an old bilateral suboccipital craniotomy that looks stable
and no other findings other than punctate and patchy areas of low density in the periventricular and subcortical white matter bilaterally that were most likely ischemic or degenerative in origin.
The team talked to neurology and ultimately decision was made to discharge the patient home. He did not have an MRI at the time. He was told to follow-up with an eye doctor which she did today. He was seen by Dr. Parker where he was found to have
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
And he was sent here for an MRI.
Patient continues to have a very mild headache but says it is much better than it was. He took Tylenol at 9 AM. If he keeps his left eye closed he has no symptoms
Past History
<Allyn Dawson PA-C - Last Filed: 04/26/24 18:03>
Past History
ED Past Surgical History: Brain
<Brayan Diallo MD - Last Filed: >
Past History
ED Past Medical History: Arrthythmia and Cancer
ED Past Surgical History: Orthopedic, Urological and Other (Pacemaker placement inguinal hernia)
Social History
Tobacco: Non-smoker
Alcohol: None
Drug: None
Personal:
Living: with family
Employment: Retired
Family History
Family History: Other (Noncontributory)
Review of Systems
<Allyn Dawson PA-C - Last Filed: 04/26/24 18:03>
Review of Systems
Allergies reviewed?: Yes
All Other Systems: Not applicable
Phy Exam
<Allyn Dawson PA-C - Last Filed: 04/26/24 18:03>
Physical Exam
Physical Exam:
GENERAL: Alert , in no apparent distress
HEAD: NCAT
EYE: L pupil slightly irregular and sluggish; right pupil sluggist but roudned; no photophobia
NECK: Supple,full rom, nontender
ENT: o/p clr, mmm.
CARDIAC: Regular rate and rhythm . no edema
LUNGS: Clear breath sounds bilaterally, no acute respiratory distress, no wheezes/rales/rhonchi
ABDOMEN: Soft, without focal tenderness, no r/g, no cvat
NEUROLOGICAL: Alert and orientedx 4, CN III palsy (cannot look all the way up, medial and down); slight ptosis in L eyelid; keeps it shut; , 5/5 strength in UE/LE, sensation intact, romberg neg, ambulates without assistance, neg pronator drift
SKIN: Warm and dry, skin intact.
MUSCULOSKELETAL: No edema, well perfused.
PSYCH: Normal and appropriate interaction.
Course
<WINSOME Vee Last Filed: 04/26/24 18:03>
Orders/Labs/Results
Orders:
Orders
04/26/24 13:35
Electrocardiogram (*1) Stat
Reason for Study: Other
Other Reason for Exam: Headache
CT Head & Neck Angio W/wo IV Urgent
Comment:
Reason For Exam: cn III palsy, double visoin, h/a eval for aneurysm
EKG- Treatment ONCE
04/26/24 13:39
Complete Blood Count/With Diff Urgent
Comprehensive Metabolic Panel Urgent
PTT Urgent
Prothrombin Time Urgent
04/26/24 14:06
Consult Neurology [NEUROLOGY CONSULT] Urgent
Consulting Provider: Damian Lema
Was physician already notified: Yes
04/26/24 15:40
Acetaminophen [Tylenol] 650 mg PO NOW STA
04/26/24 16:48
MR Brain W/o & With Contrast Routine
Comment:
Reason For Exam: Left 3rd nerve palsy
Recent pill cam endoscopy?: No
Lorazepam [Ativan] 1 mg PO ONCE ONE
04/26/24 16:49
Lipid Profile [Cardiovascular Evaluation] Routine
Is patient fasting: No
Comment: May add to blood work in lab
04/26/24 16:52
CRP [C-Reactive Protein] Routine
Comment: May add to blood in lab
04/26/24 16:54
Prochlorperazine [Compazine] 10 mg PO NOW ONE
Prochlorperazine [Compazine] 10 mg PO Q6HPRN PRN
04/26/24 17:22
Admit/Transfer Patient As Directed
Co-Sign Provider:
Level of Care: Inpatient admission
Assign to:: Telemetry
Physician / Group: harry
Diagnosis: cerebral palsy III
Reason for Telemetry: Arrhythmia
Date to Stop Telemetry: 04/29/24
Time to Stop Telemetry: 11:00
Reason for Hospitalization: cerebral palsy
Expected length of stay greater than two midnights?: Yes
ELOS- Estimated Length of Stay in days: 3
I certify the patient meets the requirements for IP care: Yes
PRN Pain Medication Management As Directed
May give lesser potent ordered pain med per pt: Yes
preference::
Protocol:: Medication orders for pain may be administered in a
manner that supports deferring to patient preference
when the pt is:
- Requesting an ordered lesser potent pain medication.
Least to most potent pain medications are defined
as: acetaminophen < NSAID < tramadol < opioids
(morphine, oxycodone, hydromorphone).
- Requesting a lesser dose of the same medication IF
ORDERED.
- Requesting a less intrusive route of administration
if both routes are prescribed by the provider (PO <
IV).
04/26/24 17:24
Code Status As Directed
Resuscitation Status: Full Code
04/26/24 17:43
ESR [Erythrocyte Sed Rate] Stat
04/29/24 11:00
DC Protocol for Telemetry ONCE
Abnormal Lab Results
04/26/24
13:39
RBC 3.38 L 10^6/uL
(4.70-6.10)
Hgb 10.1 L g/dL
(13.0-18.0)
Hct 32.1 L %
(39.0-52.0)
MCV 95.0 H fL
(80.0-94.0)
MCHC 31.5 L g/dL
(33.0-37.0)
RDW 14.6 H %
(11.5-14.5)
Absolute Lymphs (auto) 0.4 L 10^3/uL
(1.2-3.4)
Immature Gran % 0.6 H %
(0-0.5)
Lymphocytes % 7.2 L %
(20.5-51.1)
Monocytes % 11.9 H %
(1.7-9.3)
PT 20.2 H Sec
(11.4-14.6)
APTT 36.7 H Sec
(23.4-35.0)
Sodium 134 L mmol/L
(135-145)
Carbon Dioxide 31 H mmol/L
(22-30)
Glucose 102 H mg/dl
(70-99)
Alkaline Phosphatase 155 H U/L
(38-126)
04/26/24 13:39
04/26/24 13:39
Vital Signs
Initial and Last Documented VS:
Initial Vital Signs
Temp Pulse Resp BP Pulse Ox
36.7 C 74 16 144/85 92
04/26/24 13:06 04/26/24 13:06 04/26/24 13:06 04/26/24 13:06 04/26/24 13:06
Last Documented Vital Signs
Temp Pulse Resp BP Pulse Ox
36.7 C 72 15 154/94 99
04/26/24 13:06 04/26/24 16:00 04/26/24 16:00 04/26/24 16:00 04/26/24 16:00
<Brayan Diallo MD - Last Filed: >
Orders/Labs/Results
Orders:
Orders
04/26/24 13:35
Electrocardiogram (*1) Stat
Reason for Study: Other
Other Reason for Exam: Headache
CT Head & Neck Angio W/wo IV Urgent
Comment:
Reason For Exam: cn III palsy, double visoin, h/a eval for aneurysm
EKG- Treatment ONCE
04/26/24 13:39
Complete Blood Count/With Diff Urgent
Comprehensive Metabolic Panel Urgent
PTT Urgent
Prothrombin Time Urgent
04/26/24 14:06
Consult Neurology [NEUROLOGY CONSULT] Urgent
Consulting Provider: Damian Lema
Was physician already notified: Yes
04/26/24 15:40
Acetaminophen [Tylenol] 650 mg PO NOW STA
04/26/24 16:48
MR Brain W/o & With Contrast Routine
Comment:
Reason For Exam: Left 3rd nerve palsy
Recent pill cam endoscopy?: No
Lorazepam [Ativan] 1 mg PO ONCE ONE
04/26/24 16:49
Lipid Profile [Cardiovascular Evaluation] Routine
Is patient fasting: No
Comment: May add to blood work in lab
04/26/24 16:52
CRP [C-Reactive Protein] Routine
Comment: May add to blood in lab
04/26/24 16:54
Prochlorperazine [Compazine] 10 mg PO NOW ONE
Prochlorperazine [Compazine] 10 mg PO Q6HPRN PRN
04/26/24 17:22
Admit/Transfer Patient As Directed
Co-Sign Provider:
Level of Care: Inpatient admission
Assign to:: Telemetry
Physician / Group: harry
Diagnosis: cerebral palsy III
Reason for Telemetry: Arrhythmia
Date to Stop Telemetry: 04/29/24
Time to Stop Telemetry: 11:00
Reason for Hospitalization: cerebral palsy
Expected length of stay greater than two midnights?: Yes
ELOS- Estimated Length of Stay in days: 3
I certify the patient meets the requirements for IP care: Yes
PRN Pain Medication Management As Directed
May give lesser potent ordered pain med per pt: Yes
preference::
Protocol:: Medication orders for pain may be administered in a
manner that supports deferring to patient preference
when the pt is:
- Requesting an ordered lesser potent pain medication.
Least to most potent pain medications are defined
as: acetaminophen < NSAID < tramadol < opioids
(morphine, oxycodone, hydromorphone).
- Requesting a lesser dose of the same medication IF
ORDERED.
- Requesting a less intrusive route of administration
if both routes are prescribed by the provider (PO <
IV).
04/26/24 17:24
Code Status As Directed
Resuscitation Status: Full Code
04/26/24 17:43
ESR [Erythrocyte Sed Rate] Stat
04/29/24 11:00
DC Protocol for Telemetry ONCE
Abnormal Lab Results
04/26/24
13:39
RBC 3.38 L 10^6/uL
(4.70-6.10)
Hgb 10.1 L g/dL
(13.0-18.0)
Hct 32.1 L %
(39.0-52.0)
MCV 95.0 H fL
(80.0-94.0)
MCHC 31.5 L g/dL
(33.0-37.0)
RDW 14.6 H %
(11.5-14.5)
Absolute Lymphs (auto) 0.4 L 10^3/uL
(1.2-3.4)
Immature Gran % 0.6 H %
(0-0.5)
Lymphocytes % 7.2 L %
(20.5-51.1)
Monocytes % 11.9 H %
(1.7-9.3)
PT 20.2 H Sec
(11.4-14.6)
APTT 36.7 H Sec
(23.4-35.0)
Sodium 134 L mmol/L
(135-145)
Carbon Dioxide 31 H mmol/L
(22-30)
Glucose 102 H mg/dl
(70-99)
Alkaline Phosphatase 155 H U/L
(38-126)
04/26/24 13:39
04/26/24 13:39
Vital Signs
Initial and Last Documented VS:
Initial Vital Signs
Temp Pulse Resp BP Pulse Ox
36.7 C 74 16 144/85 92
04/26/24 13:06 04/26/24 13:06 04/26/24 13:06 04/26/24 13:06 04/26/24 13:06
Last Documented Vital Signs
Temp Pulse Resp BP Pulse Ox
36.7 C 72 15 154/94 99
04/26/24 13:06 04/26/24 16:00 04/26/24 16:00 04/26/24 16:00 04/26/24 16:00
<Allyn Dawson PA-C - Last Filed: 04/26/24 18:03>
MDM/Problems Addressed
Differential Diagnosis Includes:
anueurysm, brainstem lesion
MDM/Problems Addressed:
danica cazaresgins 89 y/o M h/o afib pacer on xarelto, chf
here 2 dys ago for diplopia and headache L orbital; treated with iv migraine cocktail; had noncon ct which was neg then; neuro was talked to and they felt pt could be d/c without MRI;
today went to ophtalmologist and has CN III palsy and continued headache
CTA was neg here;
neuro saw him; i d/w neurologist
pacer is MRI compatible, i spoke with the tech; prob will need cards cleraance first
<Allyn Dawson PA-C - Last Filed: 04/26/24 18:03>
*Critical Care Note
Total Time (30-74mins, 75-104mins- exclusive of procedures): Not Applicable
ED Attending Note
<Brayan Diallo MD - Last Filed: >
-
Portions of this chart may have been created with voice recognition software.� Occasional wrong word or��sound alike� substitutions may have occurred due to the inherent limitations of voice recognition software.
Discharge Plan
Departure
Patient Disposition: Admit
Date of Disposition: 04/26/24
Time of Disposition: 16:15
Admit to: Med/Surg
Presentation/result/management discussed w/ accepting MD/DO: Hospitalist
Condition: Fair
Covid-19: Not Applicable
Discharge Problem:
Third cranial nerve palsy, Headache
Prescriptions:
No Action
metoprolol succinate 25 MG tablet extended release 24 hr
12.5 mg PO DAILY
furosemide 40 MG tablet
40 mg PO DAILY
multivitamin Tablet
1 tab PO 1400
ferrous sulfate 325 mg (65 mg iron) Tablet
325 mg PO BID
Phospha 250 Neutral 250 mg Tablet
1 tab PO DAILY
tamsulosin 0.4 MG capsule
0.4 mg PO DAILY
Xarelto 20 mg Tablet
20 mg PO DAILY
Metamucil Packet
0.5 packet PO DAILY
leuprolide acetate (6 month) 45 mg Syringe
45 mg SC Q24W
cholecalciferol (vitamin D3) [Vitamin D3] 25 mcg (1,000 unit) Tablet
25 mcg PO DAILY
mirabegron [Myrbetriq] 25 mg Tablet Extended Release 24 Hr
25 mg PO DAILY
Referrals:
Maurisio Barajas MD [Family Provider] -
Interventions
Interventions:
*Risk Screen - Suicide Last Done: 04/26/24 13:06
*Neglect/Abuse Screening Last Done: 04/26/24 13:06
ED- Neurological Assessment Last Done: 04/26/24 14:46
ED-EENT Assessment Last Done: 04/26/24 14:46
Discharge Date and Time
Print Language: MALAYSIAN
[2024-04-26 13:51] LABS: % Basophils 0.8 % (0-2); % Eosinophils 5.6 % (0-6); % Immature Granulocytes 0.6 % (0-0.5); % Lymphocytes 7.2 % (20.5-51.1); % Monocytes 11.9 % (1.7-9.3); % Neutrophils 73.9 % (42.2-75.2); Absolute Eosinophils 0.3 10^3/uL (0-0.7); Absolute Lymphocytes 0.4 10^3/uL (1.2-3.4); Absolute Monocytes 0.6 10^3/uL (0.1-0.6); Absolute Neutrophils 3.7 10^3/uL (1.4-6.5); Hematocrit 32.1 % (39.0-52.0); Hemoglobin 10.1 g/dL (13.0-18.0); Mean Corp Hgb Conc. 31.5 g/dL (33.0-37.0); Mean Corpuscular Hgb 29.9 pg (27.0-31.0); Nucleated Red Blood Cells % 0 % (-); Platelet Count 195 10^3/uL (130-400); Red Blood Cell Count 3.38 10^6/uL (4.70-6.10); Red Cell Dist. Width 14.6 % (11.5-14.5)
--- NOTE | 2024-04-26 13:52 | CON.NEURO ---
Neuro Assessment/Plan
Assessment
Abrupt onset of headaches with progressive CN3 palsy, leading to complete ptosis on the left
Differential diagnosis includes mass in the cavernous sinus, incompletely demonstrated by CAT scan of the head or acute ischemic stroke in the deborah also incompletely evaluated by CT of the head. Less likely possibilities include giant cell arteritis
Plan
Check MRI of brain with and without contrast with special attention to the orbits
No clear indication patient would benefit from addition of antiplatelet agent to the use of rivaroxaban
Patient should be maintained on rivaroxaban
Check blood work for potential metabolic etiologies as well as CRP
Consider vascular surgery consultation for temporal artery biopsy dependent on MRI imaging results
Provide symptomatic therapy for the patient's headache in the form of prochlorperazine
Initiate atorvastatin 40 mg daily if patient found to have had stroke as the etiology for his current symptoms
Goal of normotension
Goal of normoglycemia
Consider provision of medical educational materials
DVT prophylaxis
Will follow
Consultation
Order
Date of Consultation: 04/26/24
Requesting Provider: Emergency department provider
Reason for Consult: Intractable headache
Subjective/Objective
Subjective Data
Date of Service: April 26, 2024
Right-Handed
Patient returned to this hospital's emergency department today after presenting yesterday due to recurrent headaches as well as left posterior ocular discomfort. Patient's information is obtained primarily after review of the patient's medical
records and discussion with the patient's family as the patient is a vague historian. The patient had been in his usual state of health until approximately 4 days ago at which time he began experiencing head discomfort at the top of the head as
well as posterior eye discomfort. His headache is described as throbbing and this is also located at the top of his head. The patient began experiencing a sense of dizziness and lightheadedness with vision changes and diplopia the day prior to
presentation to this hospital's emergency department. Patient reported no other symptoms and has not had similar issues in the past.
After discussion with this talent consultant, the patient received medications to treat headache and improved leading to his discharge.
Unfortunately, the patient then presented to his window glass installer who found that the patient had a left 3rd nerve palsy and requested that the patient return to this hospital's emergency department for reevaluation.
Since his emergency department presentation yesterday, the patient has had worsening control over his left eyelid now leading to complete ptosis. The patient's headache however has been described as slightly better although the patient himself
describes a sense of mental 'fuzziness' in the last 48 hours.
The intensity of his headache currently is a 5 out of 10 with the patient experiencing photophobia but no phonophobia nausea or emesis.
Objective Data
Vital Signs
Temp Pulse Resp BP Pulse Ox
36.7 C 73 13 144/85 98
04/26/24 13:06 04/26/24 13:30 04/26/24 13:30 04/26/24 13:06 04/26/24 13:30
Lab Results
04/26/24 13:39
Patient Allergies
No Known Allergies Allergy (Verified 04/26/24 13:05)
Review of Systems
-
History Source: Patient and Family
All other systems: Reviewed and negative
EENT: Negative Swallowing Difficulty
Respiratory: Negative Trouble Breathing
Abdomen/GI: Negative Nausea
Musculoskeletal: Back Pain; Negative Neck Pain
Neuro: Headache; Negative Dizzy
Physical Exam
-
General: No Apparent Distress and Appears Stated Age
Eyes: OU Absent Papilledema, Round OU, Fontanelle Conjunctivae and Other (Complete ptosis on the left, none on the right)
HEENT: Anicteric and Moist Mucous Membranes
Neck: Full Range of Motion
Respiratory: No Dyspnea
Cardiac: No JVD
GI: Non-distended
Skin: Unremarkable
Extremities: No Clubbing, No Cyanosis and No Edema
Psych: Intact Judgement/Insight
Extended Neurological Exam
Mood & Affect: Negative Affect Unremarkable (Mildly defensive)
Attention Span & Concentration: Awake, Alert, Interactive and Mild Difficulty with 2 Step Request
Memory: Vague (With regards to timeline)
Tremor: Hand Tremor Absent and Head Tremor Absent
Involuntary Movement: None
Speech: Quality Unremarkable and Quantity Unremarkable
Cranial Nerve II: Left Eye: Pupillary Reactivity Unremarkable, Visual Moralez Intact and Smaller than Contralateral
Cranial Nerve II: Right Eye: Pupillary Reactivity Unremarkable, Pupillary Size Unremarkable and Visual Moralez Intact
Cranial Nerves III, IV, : Extraocular Movement: Reduced (Movement of the left eye medially, downward and mildly upward; no limitations of the right eye)
Cranial Nerve VII: Facial Symmetry: Normal Facial Symmetry
Cranial Nerve VIII: Hearing: Unremarkable Hearing to Normal Conversational Volume
Cranial Nerves IX, X: Palate Movement: Palate Elevation Symmetric
Cranial Nerve XI: Shoulder Shrug: Unremarkable
Cranial Nerve XII: Tongue Protusion: Midline
Muscle Strength, Overall: Full Throughout
Muscle Bulk & Tone: Bulk Unremarkable and Tone Unremarkable
Pronator Drift: No Drift in Upper Extremities and No Drift in Lower Extremities
Deep Tendon Reflexes: Unremarkable Throughout
Touch Sensation: Unremarkable
Coordination: Kbblrh-lczk-[id number] Testing Unremarkable
Babinski Sign: Absent Bilaterally
Data Reviewed
-
CT-A: Report Reviewed
CT Head: Report Reviewed
Labs: Ordered and Report Reviewed
Reviewed with: Physician Forest Pathology Teacher, Patient and Family
Old Records: Summarized
Medications
-
Home Medications
�Medication �Instructions �Recorded
metoprolol succinate 25 mg 25 mg PO DAILY Blood pressure 01/20/21
tablet,extended release 24 hr
rivaroxaban 20 mg tablet (Xarelto) 20 mg PO DAILY Blood clot 01/20/21
prevention/tx
furosemide 40 mg tablet 40 mg PO BID Fluid 05/01/21
retention/Swelling
doxycycline monohydrate 100 mg 100 mg PO BID 03/16/24
capsule
ferrous sulfate 325 mg (65 mg 325 mg PO BID 03/16/24
iron) tablet
multivitamin 1 tab PO 1400 03/16/24
psyllium 1 packet PO DAILY 03/16/24
sodium di- and 1 tab PO 1400 03/16/24
monophosphate-potassium phos
monobasic 250 mg tablet (Phospha
Neutral)
tamsulosin 0.4 mg capsule 0.4 mg PO DAILY Urinary issue 03/16/24
cefdinir 300 mg capsule 300 mg PO BID #14 caps 04/24/24
Past History
Past History
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
ED Past Surgical History: Brain (Suboccipital craniotomy age 7), Cardiac (Pacemaker), Orthopedic (Lumbar fusion 2021, knee replacement 2017), Urological (Penile repair 2006, TURP with urethral biopsy March 2024) and Other (inguinal hernia repair
2019, cataract extraction)
Social History
Tobacco: Non-smoker
Alcohol: None
Drug: None
Employment: Retired
Family History
Family History: Other (Reviewed and noncontributory)
[2024-04-26 14:00] LABS: INR 1.67; PT 20.2 Sec (11.4-14.6)
[2024-04-26 14:01] LABS: APTT 36.7 Sec (23.4-35.0)
[2024-04-26 14:11] LABS: ALT (SGPT) 24 U/L (0-50); AST (SGOT) 44 U/L (17-59); Albumin 3.8 g/dl (3.5-5.0); Alkaline Phosphatase 155 U/L (38-126); Blood Urea Nitrogen 19 mg/dl (9-20); Calcium 9.4 mg/dl (8.4-10.2); Carbon Dioxide 31 mmol/L (22-30); Chloride 98 mmol/L (98-107); Glucose 102 mg/dl (70-99); Potassium 4.5 mmol/L (3.5-5.1); Sodium 134 mmol/L (135-145); Total Bilirubin 0.4 mg/dl (0.2-1.3); Total Protein 6.7 g/dl (6.3-8.2); eGFR > 60.00
[2024-04-26] MEDS: TYLENOL 650 MG PO (15:42)
--- NOTE | 2024-04-26 16:55 | HPS.HSE ---
Family Physician
-
Family Physician: Maurisio Barajas
Chief Complaint
-
double vision
History of Present Illness
89-year-old male with a history of A-fib status post pacemaker on Xarelto, unknown brain tumor age 8 status post resection, CHF on Lasix, prostate cancer presented to us with diplopia on his left eye and left-sided headache since Tuesday. Patient
was evaluated in the ER on Tuesday night,patient had labs and a noncontrasted head CT. At that time the only abnormality was really a urine that looked infected. Ultimately the urine culture was no growth so the antibiotics were stopped.Patient
had a CT showing an old bilateral suboccipital craniotomy that looks stable and no other findings other than punctate and patchy areas of low density in the periventricular and subcortical white matter bilaterally that were most likely ischemic or
degenerative in origin. Patient stated, since the discharge from ER his diplopia persisted so he cannot do his left eye closed. Now he cannot open his left eye. 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
She was sent into ER for further evaluation. At present patient denied dizziness or syncope. Patient denied fever, chills, chest pain, short of breath. Patient denied abdominal pain, nausea, vomiting or diarrhea. Patient denies dysuria
hematuria.
Patient was evaluated by neurology in the ER. MRI ordered. Patient received Tylenol, Ativan, Compazine in the ER. Admitted for further management
Medical History
Past Medical History
Past Medical History: Reports Other
Additional Past Medical History:
Iron deficiency
Hypertension
Neoplasm of bone
Prostate cancer
Third-degree AV block
Osteoarthritis CHF
Tremor
Past Surgical History: Reports Other
Additional Past Surgical History:
Pacemaker
inguinal hernia repair
Knee replacement
Back surgery
Social History
Tobacco: Non-smoker
Alcohol: None
Drug: None
Living: With Family
Family History
Family History: Not pertinent
Allergies / Home Medications
Allergies reflects when Allergies were last updated in [employer].
Home Medications with original date entered in [employer]
Allergy/Medication List:
Allergies
Allergy/AdvReac Type Severity Reaction Status Date / Time
No Known Allergies Allergy Verified 04/26/24 13:05
Home Medications
metoprolol succinate 25 mg tablet,extended release 24 hr 12.5 mg PO DAILY Blood pressure 01/20/21
furosemide 40 mg tablet 40 mg PO DAILY Fluid retention/Swelling 05/01/21
ferrous sulfate 325 mg (65 mg iron) tablet 325 mg PO BID 03/16/24
multivitamin 1 tab PO 1400 03/16/24
sodium di- and monophosphate-potassium phos monobasic 250 mg tablet (Phospha Neutral) 1 tab PO DAILY 03/16/24
tamsulosin 0.4 mg capsule 0.4 mg PO DAILY Urinary issue 03/16/24
cholecalciferol (vitamin D3) 25 mcg (1,000 unit) tablet (Vitamin D3) 25 mcg PO DAILY 04/26/24
leuprolide acetate (6 month) 45 mg (6 month) subcutaneous syringe 45 mg SC Q24W 04/26/24
mirabegron 25 mg tablet,extended release 24 hr (Myrbetriq) 25 mg PO DAILY 04/26/24
psyllium 0.5 packet PO DAILY 04/26/24
rivaroxaban 20 mg tablet (Xarelto) 20 mg PO DAILY 04/26/24
Review of Systems
-
Constitutional: Reports No Symptoms
EENT: Reports Other (Diplopia)
Respiratory: Reports No Symptoms
Cardiac: Reports No Symptoms
Abdomen/GI: Reports No Symptoms
: Reports No Symptoms
Musculoskeletal: Reports No Symptoms
Skin: Reports No Symptoms
Neurological: Reports Headache
Endocrine: Reports No Symptoms
Hematologic/Lymphatic: Reports No Symptoms
Psych: Reports No Symptoms
Physical Exam
Vital Signs
Vital Signs
Temp Pulse Resp BP Pulse Ox
98.1 F 72 15 154/94 99
04/26/24 13:06 04/26/24 16:00 04/26/24 16:00 04/26/24 16:00 04/26/24 16:00
Physical Exam
General: Well Developed, Well Nourished and No Apparent Distress
HEENT: NormoCephalic, Moist mucous membranes, Atraumatic and Other (eyelid closure)
Respiratory: Clear
Cardiac: S1/S2 and Regular Rhythm; No Murmur or Rub
GI: Soft, Non Tender, Non Distended and Normal Bowel Sounds; No Organomegaly
Rectal: Deferred by Provider
Musculoskeletal: No Clubbing, No Cyanosis and No Edema
Skin: No Rash
Neuro: AO x 3 and Nonfocal/grossly intact
Psych: Calm
Laboratory Results
-
04/26/24 13:39
04/26/24 13:39
Laboratory Results
PT 20.2 Sec (11.4-14.6) H 04/26/24 13:39
INR 1.67 04/26/24 13:39
APTT 36.7 Sec (23.4-35.0) H 04/26/24 13:39
Total Bilirubin 0.4 mg/dl (0.2-1.3) 04/26/24 13:39
AST 44 U/L (17-59) 04/26/24 13:39
ALT 24 U/L (0-50) 04/26/24 13:39
Alkaline Phosphatase 155 U/L (38-126) H 04/26/24 13:39
Data Reviewed
-
CT Scan: Report Reviewed by me
Lab Data: Labs Reviewed by me
Impression/Plan
-
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
-No CT evidence for intracranial aneurysm. No high-grade stenosis or occlusion of [place]. 60% stenosis of the left carotid bulb.Stable postoperative changes including a suboccipital craniotomy and bilateral inferior cerebellar
encephalomalacia.
-MRI
-Patient received Tylenol, lorazepam, Compazine in the ER
-Neurology following patient
-Continue Tylenol as needed for headache
# Anemia of chronic disease
-Hemoglobin stable at 10.1
-No active bleed
-Continue to monitor
-Ferrous sulfate continued
#History of prostate cancer with sacral metastasis
-Patient is on leuprolide
-Continue tamsulosin,Myrbetriq
#chronic Atrial fibrillation
-Metoprolol and Xarelto continued
#Heart failure with preserved ejection fraction
-Continue Lasix
-strict I&O
-daily weight
Full code
VT prophylaxis-Xarelto
Regular diet
[2024-04-26] MEDS: ATIVAN 1 MG PO (17:16)
[2024-04-26] MEDS: COMPAZINE 10 MG PO ×2 (17:17→23:08)
--- NOTE | 2024-04-26 17:52 | W.PN.UPDATE ---
Update Note
Progress Note Update
This is an addendum to the H&P written by Chrissie 04/26/2024. Patient seen and examined independently with RESIDENTIAL SUPPORT WORKER.
89-year-old male past medical history of prostate cancer status post TURP with mets to the sacrum, anemia, paroxysmal atrial fibrillation on Xarelto, with pacemaker, brain tumor status postcraniotomy, hypertension, CHF, presenting with double vision
and left eye facial droop starting 2 days ago associated with headache around the left eye.
Patient's diagrammer today who recommended he come to the emergency room for MRI and evaluation of cranial nerve III palsy.
On examination left eye is not able to deviate medially.
CT head shows no acute intracranial abnormality. CTA head and neck shows 60% stenosis of the left carotid bulb.
Concern for cranial nerve III palsy. Neurology consulted.
Check MRI brain with and without contrast. CRP pending. Continue Xarelto.
[2024-04-26 18:52] LABS: HDL Cholesterol 67 mg/dl; LDL Cholesterol, Calculated 102 mg/dl; Total Cholesterol 192 mg/dl (50-199); Triglyceride 116 mg/dl (10-149); Very Low Density Lipoprotein 23 mg/dl (0-30)
[2024-04-26 19:04] LABS: Erythrocyte Sed Rate 63 mm/hour (0-20)
[2024-04-26] MEDS: FEOSOL 325 MG PO (21:48)
[2024-04-27] VITALS (9 sets, daily range): BP systolic 124–164; BP diastolic 75–96; BMI 23.6
[2024-04-27] MEDS: COMPAZINE 10 MG PO (05:11)
[2024-04-27 05:25] LABS: Hematocrit 30.6 % (39.0-52.0); Mean Corp Hgb Conc. 32.7 g/dL (33.0-37.0); Mean Corpuscular Hgb 30.3 pg (27.0-31.0); Mean Corpuscular Volume 92.7 fL (80.0-94.0); Mean Platelet Volume 9.8 fL (7.4-10.4); Platelet Count 189 10^3/uL (130-400); Red Cell Dist. Width 14.2 % (11.5-14.5); White Blood Cell Count 5.4 10^3/uL (4.8-10.8)
[2024-04-27] MEDS: METAMUCIL, KONSYL 0.5 PACKET PO (08:16)
[2024-04-27] MEDS: FLOMAX 0.4 MG PO (08:18)
[2024-04-27] MEDS: FEOSOL 325 MG PO ×2 (08:18→19:33)
[2024-04-27] MEDS: TOPROL XL 12.5 MG PO (08:18)
[2024-04-27] MEDS: TYLENOL 650 MG PO (08:19)
[2024-04-27] MEDS: LASIX 40 MG PO (08:19)
[2024-04-27] MEDS: XARELTO 20 MG PO (08:20)
--- NOTE | 2024-04-27 08:28 | W.PN.NEURO.1 ---
Today's Communication / Plan
-
Check MRI of brain with and without contrast with special attention to the orbits
Neuro Assessment/Plan
Assessment
Abrupt onset of headaches with progressive CN3 palsy, leading to complete ptosis on the left
Differential diagnosis includes mass in the cavernous sinus, incompletely demonstrated by CAT scan of the head or acute ischemic stroke in the [place] also incompletely evaluated by CT of the head. Less likely possibilities include giant cell arteritis
Plan
Check MRI of brain with and without contrast with special attention to the orbits
Patient should be maintained on rivaroxaban
Consider vascular surgery consultation for temporal artery biopsy dependent on MRI imaging results
Provide symptomatic therapy for the patient's headache in the form of prochlorperazine
Initiate atorvastatin 40 mg daily if patient found to have had stroke as the etiology for his current symptoms
Goal of normotension
Goal of normoglycemia
Consider provision of medical educational materials
DVT prophylaxis
Will follow peripherally
Subjective/Objective
Subjective Data
Date of Service: April 27, 2024
Objective Data
Vital Signs
Temp Pulse Resp BP Pulse Ox
37.1 C 75 18 159/94 92
04/27/24 08:20 04/27/24 08:20 04/27/24 08:20 04/27/24 08:20 04/27/24 08:20
Lab Results
04/27/24 05:15
04/26/24 13:39
PT 20.2 Sec (11.4-14.6) H 04/26/24 13:39
INR 1.67 04/26/24 13:39
APTT 36.7 Sec (23.4-35.0) H 04/26/24 13:39
Sodium 134 mmol/L (135-145) L 04/26/24 13:39
Potassium 4.5 mmol/L (3.5-5.1) 04/26/24 13:39
BUN 19 mg/dl (9-20) 04/26/24 13:39
Glucose 102 mg/dl (70-99) H 04/26/24 13:39
Calcium 9.4 mg/dl (8.4-10.2) 04/26/24 13:39
LDL Cholesterol, Calc Cancelled 04/26/24 16:49
Patient Allergies
No Known Allergies Allergy (Verified 04/26/24 13:05)
Past History
Past History
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
ED Past Surgical History: Brain (Suboccipital craniotomy age 7), Cardiac (Pacemaker), Orthopedic (Lumbar fusion 2021, knee replacement 2017), Urological (Penile repair 2006, TURP with urethral biopsy March 2024) and Other (inguinal hernia repair
2019, cataract extraction)
Social History
Tobacco: Non-smoker
Alcohol: None
Drug: None
Personal:
Living: with family
Employment: Retired
Family History
Family History: Other (Reviewed and noncontributory)
Medications
-
Medications:
Generic Name Dose Route Start Last Admin
Trade Name Freq PRN Reason Stop Dose Admin
Acetaminophen 650 mg 04/26/24 20:25 04/27/24 08:19
Acetaminophen 325 Mg Tablet PO 05/24/24 20:24 650 mg
Q4HPRN PRN Administration
mild pain/VARNER/temp> 100.4F
Bisacodyl 10 mg 04/26/24 20:25
Bisacodyl 10 Mg Rectal Suppository RECTAL 05/24/24 20:24
[id number] PRN
constipation
Ferrous Sulfate 325 mg 04/26/24 20:25 04/27/24 08:18
Ferrous Sulfate 325 Mg Tablet PO 05/24/24 20:24 325 mg
BID EDILMA Administration
Furosemide 40 mg 04/27/24 08:00 04/27/24 08:19
Furosemide 40 Mg Tablet PO 05/25/24 07:59 40 mg
DAILY EDILMA Administration
Metoprolol Succinate 12.5 mg 04/27/24 08:00 04/27/24 08:18
Metoprolol 12.5 Mg Extended Release Dose (1/2 Of 25 Mg Xl Tablet) PO 05/25/24 07:59 12.5 mg
DAILY EDILMA Administration
Mirabegron 25 mg 04/27/24 08:00
Mirabegron Extended Release 25 Mg Tab (Non Form) PO 05/25/24 07:59
DAILY EDILMA
Polyethylene Glycol 17 grams 04/26/24 20:25
Polyethylene Glycol Powder 17 Grams Packet PO 05/24/24 20:24
DAILYPRN PRN
constipation
Potassium Phosphate 250 mg 04/27/24 08:00
Neutra-Phos Powder Concentrate (250 Mg) Packet PO 05/25/24 07:59
DAILY EDILMA
Prochlorperazine Maleate 10 mg 04/26/24 16:54 04/27/24 05:11
Prochlorperazine 10 Mg Tablet PO 05/24/24 16:53 10 mg
Q6HPRN PRN Administration
headache
Psyllium Hydrophilic Mucilloid 0.5 packet 04/27/24 08:00 04/27/24 08:16
Psyllium Packet PO 05/25/24 07:59 0.5 packet
DAILY EDILMA Administration
Rivaroxaban 20 mg 04/27/24 08:00 04/27/24 08:20
Rivaroxaban 20 Mg Tablet PO 05/25/24 07:59 20 mg
DAILY EDILMA Administration
Senna/Docusate Sodium 1 tablet 04/26/24 20:25
Docusate W/Senna (Melba-Colace) Tablet PO 05/24/24 20:24
BIDPRN PRN
constipation
Sodium Chloride 0 flush 04/26/24 19:00
Sodium Chloride 0.9% (Flush) Syringe IV 05/24/24 18:59
PER PROTOCOL EDILMA
Tamsulosin HCl 0.4 mg 04/27/24 08:00 04/27/24 08:18
Tamsulosin 0.4 Mg Capsule PO 05/25/24 07:59 0.4 mg
DAILY EDILMA Administration
[2024-04-27] MEDS: MYRBETRIQ EXTENDED RELEASE 25 MG PO (10:12)
[2024-04-27] MEDS: NEUTRA-PHOS POWDER PACKET 250 MG PO (10:14)
--- NOTE | 2024-04-27 14:26 | W.PN.HOSP.TC ---
Today's Communication/Plan
-
f/u MR brain w/wo contrast
Assessment / Plan
Assessment / Plan
CTA H&N
No CTA evidence for an intracranial aneurysm. No high-grade stenosis or occlusion of the [place].
60% stenosis of the left carotid bulb.
Stable postoperative changes including a suboccipital craniotomy and bilateral inferior cerebellar encephalomalacia.

1. Left Oculomotor nerve palsy
-Diplopia with complete left eye ptosis
-CTA head and neck ruled out any intracranial aneurysms.
-Patient was evaluated by ophthalmology in the office
-Neurology evaluated and recommended MRI brain with and without contrast
-Patient already on Xarelto, no further indication of antiplatelet per neurology
2. Anemia of chronic disease
-Hemoglobin stable at 10.1
-No active bleed
-Continue to monitor
-Ferrous sulfate continued
3. History of prostate cancer with sacral metastasis
-Patient is on leuprolide
-Continue tamsulosin,Myrbetriq
4. chronic Atrial fibrillation
-Metoprolol and Xarelto continued
5. Heart failure with preserved ejection fraction
-Continue Lasix
-strict I&O
-daily weight
Full code
VT prophylaxis-Xarelto
Anticipated Discharge: Within 24 hours
Subjective/Interval History
-
Date of Service: April 27, 2024
No new issues reported overnight
Objective Data
-
Labs:
Laboratory Results
04/27/24
05:15
WBC 5.4
Hgb 10.0 L
Hct 30.6 L
Plt Count 189
Vital Signs:
Vital Signs
Temp Pulse Resp BP Pulse Ox
98.7 F 78 14 159/94 97
04/27/24 08:20 04/27/24 09:45 04/27/24 09:45 04/27/24 08:20 04/27/24 09:45
Review of Systems
-
Respiratory: Reports No Symptoms
Cardiac: Reports No Symptoms
Abdomen/GI: Reports No Symptoms
Physical Exam
-
General: Comfortable
HEENT: Negative Oxygen
Respiratory: Clear to Auscultation
Cardiac: Regular Rhythm and S1/S2; Negative Murmur or Rub
GI: Soft, Nontender and Nondistended
Musculoskeletal: No Edema
Neuro: Awake, Alert, Oriented, No Motor Deficits and Nonfocal/Grossly Intact
Psych: Calm
[2024-04-27] MEDS: MELATONIN 5 MG PO (22:06)
[2024-04-28] VITALS (8 sets, daily range): BP systolic 117–177; BP diastolic 65–99
[2024-04-28] MEDS: COMPAZINE 10 MG PO ×3 (00:53→22:48)
[2024-04-28] MEDS: TYLENOL 650 MG PO ×4 (00:53→22:50)
[2024-04-28 03:45] LABS: Hematocrit 31.4 % (39.0-52.0); Hemoglobin 10.3 g/dL (13.0-18.0); Mean Corp Hgb Conc. 32.8 g/dL (33.0-37.0); Mean Corpuscular Hgb 30.4 pg (27.0-31.0); Mean Corpuscular Volume 92.6 fL (80.0-94.0); Mean Platelet Volume 9.9 fL (7.4-10.4); Platelet Count 201 10^3/uL (130-400); Red Blood Cell Count 3.39 10^6/uL (4.70-6.10); Red Cell Dist. Width 14.1 % (11.5-14.5); White Blood Cell Count 7.1 10^3/uL (4.8-10.8)
[2024-04-28] MEDS: LASIX 40 MG PO (08:28)
[2024-04-28] MEDS: FLOMAX 0.4 MG PO (08:28)
[2024-04-28] MEDS: TOPROL XL 12.5 MG PO (08:29)
[2024-04-28] MEDS: METAMUCIL, KONSYL 0.5 PACKET PO (08:29)
[2024-04-28] MEDS: FEOSOL 325 MG PO ×2 (08:29→20:39)
[2024-04-28] MEDS: XARELTO 20 MG PO (08:29)
[2024-04-28] MEDS: NEUTRA-PHOS POWDER PACKET 250 MG PO (09:41)
[2024-04-28] MEDS: MYRBETRIQ EXTENDED RELEASE 25 MG PO (09:41)
--- NOTE | 2024-04-28 13:27 | W.PN.NEURO.1 ---
Today's Communication / Plan
-
Agree with oncology evaluation for consideration of radiation oncology to treat the mass extending into the cavernous sinus
Neuro Assessment/Plan
Assessment
Abrupt onset of headaches with progressive CN3 palsy, leading to complete ptosis on the left
Differential diagnosis includes mass in the cavernous sinus
Plan
Agree with oncology evaluation for consideration of radiation oncology to treat the mass extending into the cavernous sinus
Patient should be maintained on rivaroxaban
Provide symptomatic therapy for the patient's headache in the form of prochlorperazine
Goal of normotension
Goal of normoglycemia
Consider provision of medical educational materials
DVT prophylaxis
Will follow peripherally
Subjective/Objective
Subjective Data
Date of Service: April 28, 2024
Objective Data
Vital Signs
Temp Pulse Resp BP Pulse Ox
36.7 C 71 14 134/97 100
04/28/24 08:38 04/28/24 12:04 04/28/24 12:04 04/28/24 08:00 04/27/24 23:34
Lab Results
04/28/24 03:33
04/26/24 13:39
PT 20.2 Sec (11.4-14.6) H 04/26/24 13:39
INR 1.67 04/26/24 13:39
APTT 36.7 Sec (23.4-35.0) H 04/26/24 13:39
Sodium 134 mmol/L (135-145) L 04/26/24 13:39
Potassium 4.5 mmol/L (3.5-5.1) 04/26/24 13:39
BUN 19 mg/dl (9-20) 04/26/24 13:39
Glucose 102 mg/dl (70-99) H 04/26/24 13:39
Calcium 9.4 mg/dl (8.4-10.2) 04/26/24 13:39
LDL Cholesterol, Calc Cancelled 04/26/24 16:49
Patient Allergies
No Known Allergies Allergy (Verified 04/26/24 13:05)
Past History
Past History
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
ED Past Surgical History: Brain (Suboccipital craniotomy age 7), Cardiac (Pacemaker), Orthopedic (Lumbar fusion 2021, knee replacement 2017), Urological (Penile repair 2006, TURP with urethral biopsy March 2024) and Other (inguinal hernia repair
2019, cataract extraction)
Social History
Tobacco: Non-smoker
Alcohol: None
Drug: None
Personal:
Living: with family
Employment: Retired
Family History
Family History: Other (Reviewed and noncontributory)
--- NOTE | 2024-04-28 15:38 | W.PN.HOSP.TC ---
Today's Communication/Plan
-
CTA H&N
No CTA evidence for an intracranial aneurysm. No high-grade stenosis or occlusion of the [place].
60% stenosis of the left carotid bulb.
Stable postoperative changes including a suboccipital craniotomy and bilateral inferior cerebellar encephalomalacia.
MRI brain w/wo contrast
Evidence for a heterogeneously enhancing mass involving the clivus, with extension into the inferior aspect of the sella. There is also evidence for extension into the cavernous sinuses, left greater than right. Given the finding of the right
mandibular condyle, this most likely represents metastatic bony disease.
Abnormal increased STIR signal and enhancement involving the right mandibular condyle, asymmetric compared to the left, including enhancement of the adjacent soft tissues. These findings are suspicious for a bony metastatic lesion involving the
right mandibular condyle, with differential consideration of inflammation associated with degenerative changes, although inflammation felt to be less likely. As warranted, consideration for further evaluation with bone scan. Status post occipital
and suboccipital craniotomy/craniectomy with encephalomalacic changes involving the cerebellar hemispheres as well as the posterior left occipital lobe.
No evidence for acute to subacute infarction. The has a mass in the clivus which extends into the cavernous sinuses bilaterally, left greater than right.
Also probably has a mass involving the right mandibular condyle. Main differential consideration would be metastatic disease. As a reported history of prostate cancer.

1. Left Oculomotor nerve palsy
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
-Diplopia with complete left eye ptosis
-CTA head and neck ruled out any intracranial aneurysms.
-Patient was evaluated by ophthalmology in the office
-MR Brain w w/o contrast showing findings of mas involving clivus, suspected to to be metastatic prostate cancer. MRI also showed right mandibular condyle
-Oncology involved in care
-Bone scan ordered
-PSA/SPEP/SAIRA/FLC ordered
2. Anemia of chronic disease
-Hemoglobin stable at 10.1
-No active bleed
-Continue to monitor
-Ferrous sulfate continued
3. History of prostate cancer with sacral metastasis
-Patient is on leuprolide
-Continue tamsulosin,Myrbetriq
4. chronic Atrial fibrillation
-Metoprolol and Xarelto continued
5. Heart failure with preserved ejection fraction
-Continue Lasix
-strict I&O
-daily weight
Full code
VT prophylaxis-Xarelto
Total time spent ; 52 mins
MRI finding discussed with patient family. Care plan discussed as well.
Assessment / Plan
Assessment / Plan
CTA H&N
No CTA evidence for an intracranial aneurysm. No high-grade stenosis or occlusion of the [place].
60% stenosis of the left carotid bulb.
Stable postoperative changes including a suboccipital craniotomy and bilateral inferior cerebellar encephalomalacia.

1. Left Oculomotor nerve palsy
-Diplopia with complete left eye ptosis
-CTA head and neck ruled out any intracranial aneurysms.
-Patient was evaluated by ophthalmology in the office
-Neurology evaluated and recommended MRI brain with and without contrast
-Patient already on Xarelto, no further indication of antiplatelet per neurology
2. Anemia of chronic disease
-Hemoglobin stable at 10.1
-No active bleed
-Continue to monitor
-Ferrous sulfate continued
3. History of prostate cancer with sacral metastasis
-Patient is on leuprolide
-Continue tamsulosin,Myrbetriq
4. chronic Atrial fibrillation
-Metoprolol and Xarelto continued
5. Heart failure with preserved ejection fraction
-Continue Lasix
-strict I&O
-daily weight
Full code
VT prophylaxis-Xarelto
Anticipated Discharge: > 48 hours
Subjective/Interval History
-
Date of Service: April 28, 2024
no new complains
complaining of some foginess/no migraine
no nausea/vomiting
Objective Data
-
Labs:
Laboratory Results
04/28/24
03:33
WBC 7.1
Hgb 10.3 L
Hct 31.4 L
Plt Count 201
Vital Signs:
Vital Signs
Temp Pulse Resp BP Pulse Ox
98.0 F 71 19 134/97 100
04/28/24 08:38 04/28/24 14:00 04/28/24 14:00 04/28/24 08:00 04/27/24 23:34
Review of Systems
-
Respiratory: Reports No Symptoms
Cardiac: Reports No Symptoms
Abdomen/GI: Reports No Symptoms
Physical Exam
-
General: Comfortable
HEENT: Negative Oxygen
Respiratory: Clear to Auscultation
Cardiac: Regular Rhythm and S1/S2; Negative Murmur or Rub
GI: Soft, Nontender and Nondistended
Musculoskeletal: No Edema
Neuro: Awake, Alert, Oriented, No Motor Deficits and Other (Left eye ptosis)
Psych: Calm
[2024-04-28 16:56] LABS: PSA, Total - Screen 1.21 ng/ml (0.0-4.0)
[2024-04-28] MEDS: MELATONIN PO (23:01)
[2024-04-28] MEDS: MELATONIN 5 MG PO (23:05)
[2024-04-29] MEDS: DESYREL 12.5 MG PO (02:53)
[2024-04-29 03:07] VITALS: BP 150/93
[2024-04-29] MEDS: TYLENOL 650 MG PO ×2 (05:42→11:59)
[2024-04-29] MEDS: COMPAZINE 10 MG PO ×3 (05:42→19:41)
[2024-04-29 06:00] VITALS: BMI 22.8
[2024-04-29 06:05] LABS: Hematocrit 31.9 % (39.0-52.0); Hemoglobin 10.6 g/dL (13.0-18.0); Mean Corp Hgb Conc. 33.2 g/dL (33.0-37.0); Mean Corpuscular Hgb 30.5 pg (27.0-31.0); Mean Corpuscular Volume 91.9 fL (80.0-94.0); Mean Platelet Volume 10.2 fL (7.4-10.4); Platelet Count 197 10^3/uL (130-400); Red Blood Cell Count 3.47 10^6/uL (4.70-6.10); Red Cell Dist. Width 13.8 % (11.5-14.5); White Blood Cell Count 6.6 10^3/uL (4.8-10.8)
[2024-04-29 06:26] LABS: Blood Urea Nitrogen 21 mg/dl (9-20); Calcium 9.1 mg/dl (8.4-10.2); Carbon Dioxide 29 mmol/L (22-30); Chloride 96 mmol/L (98-107); Estimated Creatinine Clearance 52 ml/min; Glucose 99 mg/dl (70-99); Sodium 132 mmol/L (135-145); eGFR > 60.00
[2024-04-29 07:07] VITALS: BP 135/79
[2024-04-29] MEDS: FEOSOL 325 MG PO ×2 (08:25→19:41)
[2024-04-29] MEDS: MYRBETRIQ EXTENDED RELEASE 25 MG PO (08:25)
[2024-04-29] MEDS: LASIX 40 MG PO (08:25)
[2024-04-29] MEDS: FLOMAX 0.4 MG PO (08:25)
[2024-04-29] MEDS: NEUTRA-PHOS POWDER PACKET 250 MG PO (08:26)
[2024-04-29] MEDS: METAMUCIL, KONSYL 0.5 PACKET PO (08:26)
[2024-04-29] MEDS: TOPROL XL 12.5 MG PO (08:26)
[2024-04-29] MEDS: XARELTO 20 MG PO (08:26)
[2024-04-29 11:24] VITALS: BP 123/74
--- NOTE | 2024-04-29 12:03 | W.PN.HOSP.TC ---
Today's Communication/Plan
-
tylenol 1g for headache
bone scan pending
f/u spep/ifc
await further onco input
Assessment / Plan
Assessment / Plan
CTA H&N
No CTA evidence for an intracranial aneurysm. No high-grade stenosis or occlusion of the [place].
60% stenosis of the left carotid bulb.
Stable postoperative changes including a suboccipital craniotomy and bilateral inferior cerebellar encephalomalacia.
MRI brain w/wo contrast
Evidence for a heterogeneously enhancing mass involving the clivus, with extension into the inferior aspect of the sella. There is also evidence for extension into the cavernous sinuses, left greater than right. Given the finding of the right
mandibular condyle, this most likely represents metastatic bony disease.
Abnormal increased STIR signal and enhancement involving the right mandibular condyle, asymmetric compared to the left, including enhancement of the adjacent soft tissues. These findings are suspicious for a bony metastatic lesion involving the
right mandibular condyle, with differential consideration of inflammation associated with degenerative changes, although inflammation felt to be less likely. As warranted, consideration for further evaluation with bone scan. Status post occipital
and suboccipital craniotomy/craniectomy with encephalomalacic changes involving the cerebellar hemispheres as well as the posterior left occipital lobe.
No evidence for acute to subacute infarction. The has a mass in the clivus which extends into the cavernous sinuses bilaterally, left greater than right.
Also probably has a mass involving the right mandibular condyle. Main differential consideration would be metastatic disease. As a reported history of prostate cancer.

1. Left Oculomotor nerve palsy
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
Right mandibular lesion
-Diplopia with complete left eye ptosis
-CTA head and neck ruled out any intracranial aneurysms.
-Patient was evaluated by ophthalmology in the office
-MR Brain w w/o contrast showing findings of mas involving clivus, suspected to to be metastatic prostate cancer. MRI also showed right mandibular condyle
-Oncology involved in care
-Bone scan ordered
-PSA only 1.21 - does this exclude prostate cancer? - await onco input
-SPEP/SAIRA/FLC ordered
2. Anemia of chronic disease
-Hemoglobin stable at 10.1
-No active bleed
-Continue to monitor
-Ferrous sulfate continued
3. History of prostate cancer with sacral metastasis
-Patient is on leuprolide
-Continue tamsulosin,Myrbetriq
4. chronic Atrial fibrillation
-Metoprolol and Xarelto continued
5. Heart failure with preserved ejection fraction
-Continue Lasix
-strict I&O
-daily weight
6. Recurrent headache
-Likely from mass causing meningeal irritation
-Cannot provide NSAIDs as on Xarelto
-Tylenol schedule ordered. May require further treatment based on response
Full code
VT prophylaxis-Xarelto
Anticipated Discharge: 24 - 48 hours
Subjective/Interval History
-
Date of Service: April 29, 2024
Persistent left eye ptosis
Some nausea
Minimal deep-seated headache
Objective Data
-
Labs:
Laboratory Results
04/29/24
05:14
WBC 6.6
Hgb 10.6 L
Hct 31.9 L
Plt Count 197
Sodium 132 L
Potassium 4.0
Chloride 96 L
Carbon Dioxide 29
BUN 21 H
Creatinine 0.9
Glucose 99
Calcium 9.1
Vital Signs:
Vital Signs
Temp Pulse Resp BP Pulse Ox
98.0 F 75 18 135/79 96
04/29/24 07:07 04/29/24 08:26 04/29/24 07:07 04/29/24 08:26 04/29/24 07:07
I&O
04/28/24 04/29/24 04/30/24
06:59 06:59 06:59
Intake Total 520 / 520
Output Total 125 / 125
Balance 395 / 395
Review of Systems
-
Respiratory: Reports No Symptoms
Cardiac: Reports No Symptoms
Abdomen/GI: Reports No Symptoms
Physical Exam
-
General: Comfortable
HEENT: Negative Oxygen
Respiratory: Clear to Auscultation
Cardiac: Regular Rhythm and S1/S2; Negative Murmur or Rub
GI: Soft, Nontender and Nondistended
Musculoskeletal: No Edema
Neuro: Awake, Alert, Oriented, No Motor Deficits and Other (Left eye ptosis)
Psych: Calm
--- NOTE | 2024-04-29 12:47 | CM ---
Initial assessment completed with pts step daughter via phone.
Pt is an 89yr old male admitted with Cerebral Palsy III, and was having headaches at admission.
metastatic prostate cancer suspected. Oncology, Neurology, Urology all involved.
At baseline, pt lives alone in a house that has 10ste and 3 levels.
Per daughter, pt was indep and able to navigate all steps and driving at baseline.
Pt eats most meals at restaurants or light/easy meal prep.
Per daughter in law, pt would struggle at home if he was not indep. and able to drive.
Pt does not have/use DME. Pt has been to [place] and went home with VN, but does not recall who.
Pt does also have Palliative Dr.
PCP; Maurisio Barajas
Pharm; [facility]
PLAN; Will be determined on hospital course.
[2024-04-29 13:00] VITALS: BP 124/76; PULSE 72; O2SAT 97
[2024-04-29 15:43] VITALS: BP 129/82
[2024-04-29] MEDS: TYLENOL 1000 MG PO ×2 (16:10→22:54)
--- NOTE | 2024-04-29 22:17 | CON.ONC ---
Impression
Impression
midbrain mass with local extension--visceral cancer mets vs primary [employer] malignancy vs heme marrow malignancy (lymphoma/ myeloma)
Plan
Plan
CT scans NCAP w/ contrast -- bone scan and SPEP/SAIRA ordered--neurosurg consultation if no obvious mets by scans
Patient History
History of Present Illness
89yoWM w/ hx of prostate carcinoma admitted with new 3rd nerve palsy for which w/ readmission MRI brain scanning noting midbrain lesion w/ invasion into the clivus and sinuses and abnormal signal occipital condyles; he is anticipating upcoming PET
for f/u of his prostate carcinoma for which PSA remains <4. He denies any new pain/ night sweats/ abnormal bleeding or weight loss.
Past-Medical/Surgical History
afib/HTN/hx prostate carcinoma
Patient Medication
�Medication �Instructions �Recorded �Confirmed �Last Taken �Type
metoprolol succinate 25 mg 12.5 mg PO DAILY Blood pressure 01/20/21 04/26/24 04/26/24 History
tablet,extended release 24 hr
furosemide 40 mg tablet 40 mg PO DAILY Fluid 05/01/21 04/26/24 04/26/24 History
retention/Swelling
ferrous sulfate 325 mg (65 mg 325 mg PO BID ANEMIA 03/16/24 04/26/24 04/25/24 History
iron) tablet
multivitamin 1 tab PO DAILY@14 Supplement 03/16/24 04/28/24 04/26/24 History
sodium di- and 1 tab PO DAILY Electrolyte 03/16/24 04/26/24 04/26/24 History
monophosphate-potassium phos Repletion
monobasic 250 mg tablet (Phospha
Neutral)
tamsulosin 0.4 mg capsule 0.4 mg PO DAILY Urinary issue 03/16/24 04/26/24 04/26/24 History
cholecalciferol (vitamin D3) 25 25 mcg PO DAILY Supplement 04/26/24 04/26/24 04/26/24 History
mcg (1,000 unit) tablet (Vitamin
D3)
leuprolide acetate (6 month) 45 mg 45 mg SC Q24W Hormonal Agent 04/26/24 04/26/24 Unknown History
(6 month) subcutaneous syringe
mirabegron 25 mg tablet,extended 25 mg PO DAILY Urinary Issue 04/26/24 04/26/24 04/26/24 History
release 24 hr (Myrbetriq)
psyllium 0.5 packet PO DAILY 04/26/24 04/26/24 04/25/24 History
rivaroxaban 20 mg tablet (Xarelto) 20 mg PO DAILY 04/26/24 04/26/24 04/26/24 History
Active Medications
Generic Name Dose Route Start Last Admin
Trade Name Freq PRN Reason Stop Dose Admin
Acetaminophen 650 mg 04/26/24 20:25 04/29/24 11:59
Acetaminophen 325 Mg Tablet PO 05/24/24 20:24 650 mg
Q4HPRN PRN Administration
mild pain/VARNER/temp> 100.4F
Acetaminophen 1,000 mg 04/29/24 13:00 04/29/24 16:10
Acetaminophen 500 Mg Tablet PO 05/27/24 12:59 1,000 mg
BID EDILMA Administration
Bisacodyl 10 mg 04/26/24 20:25
Bisacodyl 10 Mg Rectal Suppository RECTAL 05/24/24 20:24
[id number] PRN
constipation
Ferrous Sulfate 325 mg 04/26/24 20:25 04/29/24 19:41
Ferrous Sulfate 325 Mg Tablet PO 05/24/24 20:24 325 mg
BID EDILMA Administration
Furosemide 40 mg 04/27/24 08:00 04/29/24 08:25
Furosemide 40 Mg Tablet PO 05/25/24 07:59 40 mg
DAILY EDILMA Administration
Melatonin 5 mg 04/29/24 22:00
Melatonin 5 Mg Tablet PO 05/27/24 21:59
HS EDILMA
Metoprolol Succinate 12.5 mg 04/27/24 08:00 04/29/24 08:26
Metoprolol 12.5 Mg Extended Release Dose (1/2 Of 25 Mg Xl Tablet) PO 05/25/24 07:59 12.5 mg
DAILY EDILMA Administration
Mirabegron 25 mg 04/27/24 08:00 04/29/24 08:25
Mirabegron Extended Release 25 Mg Tab (Non Form) PO 05/25/24 07:59 25 mg
DAILY EDILMA Administration
Polyethylene Glycol 17 grams 04/26/24 20:25
Polyethylene Glycol Powder 17 Grams Packet PO 05/24/24 20:24
DAILYPRN PRN
constipation
Potassium Phosphate 250 mg 04/27/24 08:00 04/29/24 08:26
Neutra-Phos Powder Concentrate (250 Mg) Packet PO 05/25/24 07:59 250 mg
DAILY EDILMA Administration
Prochlorperazine Maleate 10 mg 04/26/24 16:54 04/29/24 19:41
Prochlorperazine 10 Mg Tablet PO 05/24/24 16:53 10 mg
Q6HPRN PRN Administration
headache
Psyllium Hydrophilic Mucilloid 0.5 packet 04/27/24 08:00 04/29/24 08:26
Psyllium Packet PO 05/25/24 07:59 0.5 packet
DAILY EDILMA Administration
Rivaroxaban 20 mg 04/27/24 08:00 04/29/24 08:26
Rivaroxaban 20 Mg Tablet PO 05/25/24 07:59 20 mg
DAILY EDILMA Administration
Senna/Docusate Sodium 1 tablet 04/26/24 20:25
Docusate W/Senna (Melba-Colace) Tablet PO 05/24/24 20:24
BIDPRN PRN
constipation
Sodium Chloride 0 flush 04/26/24 19:00
Sodium Chloride 0.9% (Flush) Syringe IV 05/24/24 18:59
PER PROTOCOL EDILMA
Tamsulosin HCl 0.4 mg 04/27/24 08:00 04/29/24 08:25
Tamsulosin 0.4 Mg Capsule PO 05/25/24 07:59 0.4 mg
DAILY EDILMA Administration
Review of Systems
-
History Source: Patient
All Other Systems: Reviewed and Negative (other than CN palsy)
Physical Exam
-
General: Comfortable and Conversant
Cardiology: Irregular Rate/Rhythm
Pulmonary: Clear
GI: Normal Bowel Sounds
Musculoskeletal: No Clubbing, No Cyanosis and No Edema
Extremities: No C/C/E
Neurology: Other (ptosis OS)
Psych: Calm and Intact Judgement/Insight
Labs
Lab Results
WBC 6.6 10^3/uL (4.8-10.8) 04/29/24 05:14
RBC 3.47 10^6/uL (4.70-6.10) L 04/29/24 05:14
Hgb 10.6 g/dL (13.0-18.0) L 04/29/24 05:14
Hct 31.9 % (39.0-52.0) L 04/29/24 05:14
MCV 91.9 fL (80.0-94.0) 04/29/24 05:14
MCH 30.5 pg (27.0-31.0) 04/29/24 05:14
MCHC 33.2 g/dL (33.0-37.0) 04/29/24 05:14
RDW 13.8 % (11.5-14.5) 04/29/24 05:14
Plt Count 197 10^3/uL (130-400) 04/29/24 05:14
MPV 10.2 fL (7.4-10.4) 04/29/24 05:14
Abs Immat Gran (auto) 0.0 10^3/uL (0-0.05) 04/26/24 13:39
Absolute Neuts (auto) 3.7 10^3/uL (1.4-6.5) 04/26/24 13:39
Absolute Lymphs (auto) 0.4 10^3/uL (1.2-3.4) L 04/26/24 13:39
Absolute Monos (auto) 0.6 10^3/uL (0.1-0.6) 04/26/24 13:39
Absolute Eos (auto) 0.3 10^3/uL (0-0.7) 04/26/24 13:39
Absolute Basos (auto) 0.0 10^3/uL (0-0.2) 04/26/24 13:39
Immature Gran % 0.6 % (0-0.5) H 04/26/24 13:39
Neutrophils % 73.9 % (42.2-75.2) 04/26/24 13:39
Lymphocytes % 7.2 % (20.5-51.1) L 04/26/24 13:39
Monocytes % 11.9 % (1.7-9.3) H 04/26/24 13:39
Eosinophils % 5.6 % (0-6) 04/26/24 13:39
Basophils % 0.8 % (0-2) 04/26/24 13:39
Creatinine 0.9 mg/dL (0.7-1.3) 04/29/24 05:14
Vital Signs
Vital Signs
Temp Pulse Resp BP Pulse Ox
98.8 F 72 18 129/82 98
04/29/24 15:43 04/29/24 15:43 04/29/24 15:43 04/29/24 15:43 04/29/24 18:09
[2024-04-29] MEDS: MELATONIN 5 MG PO (22:55)
[2024-04-29 23:39] VITALS: BP 123/71
[2024-04-30] MEDS: COMPAZINE PO (05:29)
[2024-04-30] MEDS: COMPAZINE 10 MG IV (05:48)
[2024-04-30] MEDS: OMNIPAQUE 50 ML PO (05:50)
[2024-04-30 06:00] VITALS: BMI 22.8
[2024-04-30 07:07] VITALS: BP 152/88
[2024-04-30] MEDS: TOPROL XL 12.5 MG PO (08:25)
[2024-04-30] MEDS: MYRBETRIQ EXTENDED RELEASE 25 MG PO (08:25)
[2024-04-30] MEDS: LASIX 40 MG PO (08:25)
[2024-04-30] MEDS: FLOMAX 0.4 MG PO (08:25)
[2024-04-30] MEDS: FEOSOL 325 MG PO (08:25)
[2024-04-30] MEDS: NEUTRA-PHOS POWDER PACKET 250 MG PO (08:25)
[2024-04-30] MEDS: TYLENOL 1000 MG PO (08:25)
[2024-04-30] MEDS: XARELTO 20 MG PO (08:25)
[2024-04-30] MEDS: METAMUCIL, KONSYL 0.5 PACKET PO (08:25)
[2024-04-30 08:35] LABS: Hematocrit 33.9 % (39.0-52.0); Mean Corp Hgb Conc. 32.4 g/dL (33.0-37.0); Mean Corpuscular Hgb 29.9 pg (27.0-31.0); Mean Corpuscular Volume 92.1 fL (80.0-94.0); Mean Platelet Volume 10.2 fL (7.4-10.4); Platelet Count 197 10^3/uL (130-400); Red Blood Cell Count 3.68 10^6/uL (4.70-6.10); Red Cell Dist. Width 14.2 % (11.5-14.5); White Blood Cell Count 6.9 10^3/uL (4.8-10.8)
--- NOTE | 2024-04-30 08:45 | W.PN.ONC2 ---
Today's Communication / Plan
-
.
Impression
Impression
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
MRI brain showed heterogeneously enhancing mass involving the clivus, with extension into the inferior aspect of the sella, extension into the cavernous sinuses, and involving the right mandibular condyle -most likely represents metastatic bony
disease.
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
xgeva d/c due to dental abscess/risk osteonecrosis
HFpEF
AF on DOAC
hyponatremia
Plan
Plan
f/u bone scan
f/u CT CAP
f/u SPEP, FLC
prochlorperazine prn h/a
appreciate neurology input
dexamethasone 4mg TID d/t CN palsy and urgent palliative XRT d/w with radiation oncology
Subjective/Objective
Subjective
no new complaints
continues with headache and left eye ptosis
Vital Signs:
Vital Signs
Temp Pulse Resp BP Pulse Ox
98.7 F 70 19 152/88 99
04/29/24 23:39 04/30/24 08:25 04/29/24 23:39 04/30/24 08:25 04/29/24 23:39
Lab Results:
Laboratory Data
WBC 6.9 10^3/uL (4.8-10.8) 04/30/24 08:04
Hgb 11.0 g/dL (13.0-18.0) L 04/30/24 08:04
Plt Count 197 10^3/uL (130-400) 04/30/24 08:04
PT 20.2 Sec (11.4-14.6) H 04/26/24 13:39
INR 1.67 04/26/24 13:39
APTT 36.7 Sec (23.4-35.0) H 04/26/24 13:39
eGFR > 60.00 04/29/24 05:14
Physical Exam
HEENT: Moist Mucous Membranes; No Jaundice
Cardiology: Irregular rate/rhythm
Pulmonary: Clear
GI: Soft
Extremities: No Edema
Neuro: Other (left eye ptosis)
[2024-04-30 09:02] LABS: Blood Urea Nitrogen 20 mg/dl (9-20); Carbon Dioxide 27 mmol/L (22-30); Chloride 97 mmol/L (98-107); Estimated Creatinine Clearance 59 ml/min; Glucose 108 mg/dl (70-99); Potassium 4.1 mmol/L (3.5-5.1); Sodium 131 mmol/L (135-145); eGFR > 60.00
--- NOTE | 2024-04-30 09:56 | W.PN.UPDATE ---
Update Note
Progress Note Update
I am writing this note as a resident working under Dr. Ritchie for radiation oncology
Assessment:
Medical history metastatic prostate cancer, status post radiation of the lower lumbar and sacral spine in 2021
Now presents with new 3rd nerve palsy, diagnosed by Optho. MRI brain scan demonstrates midbrain lesion with invasion to clivus and cavernous sinuses left greater than right
Likely represents progression of metastatic disease as unfortunately patient is reportedly noncompliant with PSAs and medications
PSA 1.21 on last check
Plan:
#Intracranial midbrain mass
Recommend starting empiric high-dose dexamethasone 4mg TID PO
If patient is able to be discharged today, we will set him up with appointment at [facility] at [place] for tomorrow, 05/01/2024, for simulation to expedite his radiation treatments
If not possible to discharge today, would recommend consideration of transfer to [place] where they offer inpatient radiation oncology services
[2024-04-30] MEDS: DECADRON 4 MG PO ×2 (11:01→16:03)
--- NOTE | 2024-04-30 13:17 | W.PN.HOSP.TC ---
Today's Communication/Plan
-
dexamethasone
ppi
emergent radiation planning/mapping tomorrow 05/01
f/u and onc and pcp outpt
f/u bone scan, f/u SPEP, FLC
Assessment / Plan
Assessment / Plan
CTA H&N
No CTA evidence for an intracranial aneurysm. No high-grade stenosis or occlusion of the iliamna of [place].
60% stenosis of the left carotid bulb.
Stable postoperative changes including a suboccipital craniotomy and bilateral inferior cerebellar encephalomalacia.
MRI brain w/wo contrast
Evidence for a heterogeneously enhancing mass involving the clivus, with extension into the inferior aspect of the sella. There is also evidence for extension into the cavernous sinuses, left greater than right. Given the finding of the right
mandibular condyle, this most likely represents metastatic bony disease.
Abnormal increased STIR signal and enhancement involving the right mandibular condyle, asymmetric compared to the left, including enhancement of the adjacent soft tissues. These findings are suspicious for a bony metastatic lesion involving the
right mandibular condyle, with differential consideration of inflammation associated with degenerative changes, although inflammation felt to be less likely. As warranted, consideration for further evaluation with bone scan. Status post occipital
and suboccipital craniotomy/craniectomy with encephalomalacic changes involving the cerebellar hemispheres as well as the posterior left occipital lobe.
No evidence for acute to subacute infarction. The has a mass in the clivus which extends into the cavernous sinuses bilaterally, left greater than right.
Also probably has a mass involving the right mandibular condyle. Main differential consideration would be metastatic disease. As a reported history of prostate cancer.

# Left Oculomotor nerve palsy
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
Right mandibular lesion
-Diplopia with complete left eye ptosis
-CTA head and neck ruled out any intracranial aneurysms.
-Patient was evaluated by ophthalmology in the office
-MR Brain w w/o contrast showing findings of mas involving clivus, suspected to to be metastatic prostate cancer. MRI also showed right mandibular condyle
-Oncology involved in care
-Bone scan ordered
-CT Imaging: Bony metastatic disease from Prostate carcinoma again suspected (portions may be partially treated) involving predominantly fused T8 and T9 level as well as some additional vague area of sclerosis suggesting bony metastatic disease at
the T12 level, lumbar spine and upper sacrum. When able to be obtained, suggest PMSA PET scan for more complete evaluation as extent of metastatic disease may be difficult to determine on the basis of this study.
-SPEP/SAIRA/FLC ordered
prochlorperazine prn for headache
Dexamethasone, empiric PPI
-F/u Radiation - for emergent radiation mapping and treatment - planned for tomorrow visit 05/01
f/u onc outpt
#Hyponatremia
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
-fluid restriction
-monitor bmp in 3-5 days
#Anemia of chronic disease
-Hemoglobin stable at 10.1
-No active bleed
-Continue to monitor
-Ferrous sulfate continued
# History of prostate cancer with sacral metastasis
-Patient is on leuprolide
-Continue tamsulosin,Myrbetriq
# chronic Atrial fibrillation
-Metoprolol and Xarelto continued
#. Heart failure with preserved ejection fraction
-Continue Lasix
-strict I&O
-daily weight
# Recurrent headache
-Likely from mass causing meningeal irritation
-Cannot provide NSAIDs as on Xarelto
-Tylenol schedule ordered. May require further treatment based on response
Full code
VT prophylaxis-Xarelto
More than 30 minutes spent in discharge including
Final examination of the patient
Summarizing hospital stay
Instructions for continuing care to all relevant caregivers
Preparation of discharge records, prescriptions, and referral forms
Total time spent (36 in minutes):
Anticipated Discharge: Today
Subjective/Interval History
-
Date of Service: April 30, 2024
No acute events
Objective Data
-
Labs:
Laboratory Results
04/30/24
08:04
WBC 6.9
Hgb 11.0 L
Hct 33.9 L
Plt Count 197
Sodium 131 L
Potassium 4.1
Chloride 97 L
Carbon Dioxide 27
BUN 20
Creatinine 0.8
Glucose 108 H
Calcium 9.0
Vital Signs:
Vital Signs
Temp Pulse Resp BP Pulse Ox
98.5 F 70 18 152/88 99
04/30/24 07:07 04/30/24 08:25 04/30/24 07:07 04/30/24 08:25 04/30/24 12:03
I&O
04/29/24 04/30/24 05/01/24
06:59 06:59 06:59
Intake Total 520 / 520 900 / 900 480 / 480
Output Total 125 / 125
Balance 395 / 395 900 / 900 480 / 480
Review of Systems
-
History Source: Patient
All other systems: Not reviewed unless documented
Physical Exam
-
General: Comfortable
HEENT: Negative Oxygen
Respiratory: Clear to Auscultation
Cardiac: Regular Rhythm and S1/S2; Negative Murmur or Rub
GI: Soft, Nontender and Nondistended
Musculoskeletal: No Edema
Neuro: Awake, Alert, Oriented, No Motor Deficits and Other (Left eye ptosis)
Psych: Calm
--- NOTE | 2024-04-30 13:24 | W.DS.TRANS ---
DC Summary - [employer]
-
Discharge Instructions:
Sleep Apnea Risk Low
Discharge Diagnosis/Procedures progressive CN3 palsy, leading to complete
ptosis on the left
Diet Low Fat,Low Cholesterol,Restrict fluids to 48 oz
Activity As tolerated
Blood Work bmp in 3-5 days monitoring sodium, probably
siadh
Others Tests as per oncology - f/u bone scan, SPEP, FLC
Instructions:
Stand-Alone Forms:
Changes to Home Medications: Yes
Discharge Medications:
DC Medications w/original date entered in [facility]
metoprolol succinate 25 mg tablet,extended release 24 hr 12.5 mg PO DAILY Blood pressure 01/20/21
furosemide 40 mg tablet 40 mg PO DAILY Fluid retention/Swelling 05/01/21
ferrous sulfate 325 mg (65 mg iron) tablet 325 mg PO BID ANEMIA 03/16/24
multivitamin 1 tab PO DAILY@14 Supplement 03/16/24
sodium di- and monophosphate-potassium phos monobasic 250 mg tablet (Phospha Neutral) 1 tab PO DAILY Electrolyte Repletion 03/16/24
tamsulosin 0.4 mg capsule 0.4 mg PO DAILY Urinary issue 03/16/24
cholecalciferol (vitamin D3) 25 mcg (1,000 unit) tablet (Vitamin D3) 25 mcg PO DAILY Supplement 04/26/24
leuprolide acetate (6 month) 45 mg (6 month) subcutaneous syringe 45 mg SC Q24W Hormonal Agent 04/26/24
mirabegron 25 mg tablet,extended release 24 hr (Myrbetriq) 25 mg PO DAILY Urinary Issue 04/26/24
psyllium 0.5 packet PO DAILY 04/26/24
rivaroxaban 20 mg tablet (Xarelto) 20 mg PO DAILY 04/26/24
acetaminophen 325 mg tablet 650 mg (2 x 325 mg) PO Q4HPRN PRN mild pain/VARNER/temp> 100.4F #50 tabs 04/30/24
acetaminophen 500 mg tablet (Tylenol Extra Strength) 1,000 mg (2 x 500 mg) PO BID 14 days #56 tabs 04/30/24
dexamethasone 4 mg tablet 4 mg PO TID 14 days #42 tabs 04/30/24
pantoprazole 40 mg tablet,delayed release 40 mg PO DAILY 30 days #30 tabs 04/30/24
prochlorperazine maleate 10 mg tablet 10 mg PO Q6HPRN PRN headache #60 tabs 04/30/24
Home Medication Changes
acetaminophen 325 mg tablet 650 mg (2 x 325 mg) PO Q4HPRN PRN mild pain/VARNER/temp> 100.4F #50 tabs 04/30/24
acetaminophen 500 mg tablet (Tylenol Extra Strength) 1,000 mg (2 x 500 mg) PO BID 14 days #56 tabs 04/30/24
dexamethasone 4 mg tablet 4 mg PO TID 14 days #42 tabs 04/30/24
pantoprazole 40 mg tablet,delayed release 40 mg PO DAILY 30 days #30 tabs 04/30/24
prochlorperazine maleate 10 mg tablet 10 mg PO Q6HPRN PRN headache #60 tabs 04/30/24
Pending Results: No
--- NOTE | 2024-04-30 13:38 | CM ---
Reviewed the chart notes and spoke with the patient at the bedside. Patient being discharged to start outpatient radiation treatment. IMM reviewed.
Plan: Discharge to home with outpatient radiation therapy.
[2024-04-30] MEDS: TYLENOL 650 MG PO (14:39)
[2024-04-30] MEDS: PROTONIX 40 MG PO (14:39)
[2024-04-30 15:55] VITALS: BP 108/62
[2024-05-02 00:13] LABS: Albumin 3.47 g/dL (3.75-5.01); Alpha 1 Globulin 0.38 g/dL (0.19-0.46); Alpha 2 Globulin 0.97 g/dL (0.48-1.05); Free Kappa Light Chains,Quant 19.62 mg/L (3.30-19.40); IgA 194 mg/dL (68-408); IgG 730 mg/dL (768-1632); IgM 92 mg/dL (35-263); Immunofixation Electrophoresis IFE Done; Kappa/Lambda Fr Light Ratio 1.33 (0.26-1.65); Total Protein-Electrophoresis 6.2 g/dL (6.3-8.2)
== END 2024-04-30 16:21 | disposition home or self-care (01) | DRG 543 ==
LOC: 2 NORTH 18:25
PROVIDERS: Hospitalist; Physician Assistant; Registered Nurse; ADMITTING PHYSICIAN Hospitalist; ATTENDING PHYSICIAN Internal Medicine; CONSULT PHYSICIAN Internal Medicine Hematology & Oncology; CONSULT PHYSICIAN Psychiatry & Neurology Neurology; EMERGENCY PHYSICIAN Emergency Medicine; FAMILY PHYSICIAN Family Medicine; REFERRING PHYSICIAN Ophthalmology
DX: C79.51 Secondary malignant neoplasm of bone (principal); E22.2 Syndrome of inappropriate secretion of antidiuretic hormone; I44.2 Atrioventricular block, complete; I50.30 Unspecified diastolic (congestive) heart failure; I48.20 Chronic atrial fibrillation, unspecified; H49.02 Third [oculomotor] nerve palsy, left eye; Z95.0 Presence of cardiac pacemaker; Z85.46 Personal history of malignant neoplasm of prostate; E61.1 Iron deficiency; I11.0 Hypertensive heart disease with heart failure; M19.90 Unspecified osteoarthritis, unspecified site; I65.22 Occlusion and stenosis of left carotid artery; D63.8 Anemia in other chronic diseases classified elsewhere; Z85.841 Personal history of malignant neoplasm of brain; K59.00 Constipation, unspecified; Z79.01 Long term (current) use of anticoagulants; Z79.899 Other long term (current) drug therapy; Z98.1 Arthrodesis status
CPT/HCPCS: 70450; 70496; 70498; 70553; 71260; 74177; 78306; 80048; 80053; 80061; 81003; 81015; 82784; 83521; 84155; 84165; 85025; 85027; 85610; 85652; 85730; 86140; 86334; 87086; 93005; 97161; 97166; 99285; A9503; A9575; G0103; Q9967

== ENCOUNTER → 2024-05-24 08:53 | Outpatient (REF) | payer MEDICARE, BC, SELFPAY ==
[2024-05-24 11:36] LABS: HDL Cholesterol 87 mg/dl; LDL Cholesterol, Calculated 113 mg/dl; Total Cholesterol 215 mg/dl (50-199); Triglyceride 75 mg/dl (10-149); Very Low Density Lipoprotein 15 mg/dl (0-30)
== END ==
LOC: REG 08:53
PROVIDERS: ATTENDING PHYSICIAN Internal Medicine; FAMILY PHYSICIAN Family Medicine
DX: E78.2 Mixed hyperlipidemia (principal)
CPT/HCPCS: 36415; 80061

== ENCOUNTER → 2024-06-05 10:56 | Outpatient (REF) | payer MEDICARE, BC, SELFPAY ==
[2024-06-05 11:56] LABS: % Basophils 0.2 % (0-2); % Immature Granulocytes 2.2 % (0-0.5); % Lymphocytes 4.7 % (20.5-51.1); % Monocytes 7.3 % (1.7-9.3); % Neutrophils 85.6 % (42.2-75.2); Absolute Immature Granulocytes 0.1 10^3/uL (0-0.05); Absolute Lymphocytes 0.3 10^3/uL (1.2-3.4); Absolute Monocytes 0.4 10^3/uL (0.1-0.6); Absolute Neutrophils 4.6 10^3/uL (1.4-6.5); Hematocrit 33.3 % (39.0-52.0); Hemoglobin 10.8 g/dL (13.0-18.0); Mean Corp Hgb Conc. 32.4 g/dL (33.0-37.0); Mean Corpuscular Volume 92.5 fL (80.0-94.0); Mean Platelet Volume 9.9 fL (7.4-10.4); Nucleated Red Blood Cells % 0 % (-); Platelet Count 198 10^3/uL (130-400); Red Cell Dist. Width 14.5 % (11.5-14.5); White Blood Cell Count 5.4 10^3/uL (4.8-10.8)
[2024-06-05 12:26] LABS: ALT (SGPT) 31 U/L (0-50); AST (SGOT) 65 U/L (17-59); Albumin 3.7 g/dl (3.5-5.0); Alkaline Phosphatase 187 U/L (38-126); Blood Urea Nitrogen 24 mg/dl (9-20); Calcium 9.6 mg/dl (8.4-10.2); Carbon Dioxide 33 mmol/L (22-30); Chloride 98 mmol/L (98-107); Glucose 109 mg/dl (70-99); Potassium 4.3 mmol/L (3.5-5.1); Sodium 138 mmol/L (135-145); Total Bilirubin 0.5 mg/dl (0.2-1.3); eGFR > 60.00
[2024-06-05 12:36] LABS: PSA, Total - Diagnostic 1.93 ng/ml (0.0-4.0)
== END ==
LOC: REG 10:56
PROVIDERS: ATTENDING PHYSICIAN Internal Medicine Hematology & Oncology; FAMILY PHYSICIAN Family Medicine; REFERRING PHYSICIAN Urology
DX: C61 Malignant neoplasm of prostate (principal); C79.51 Secondary malignant neoplasm of bone
CPT/HCPCS: 36415; 80053; 84153; 85025

== ENCOUNTER → 2024-07-11 11:37 | Outpatient (REF) | payer MEDICARE, BC, SELFPAY ==
[2024-07-11 12:35] LABS: % Basophils 0.2 % (0-2); % Eosinophils 0.1 % (0-6); % Immature Granulocytes 1.3 % (0-0.5); % Lymphocytes 3.8 % (20.5-51.1); % Monocytes 3.9 % (1.7-9.3); % Neutrophils 90.7 % (42.2-75.2); Absolute Immature Granulocytes 0.1 10^3/uL (0-0.05); Absolute Lymphocytes 0.3 10^3/uL (1.2-3.4); Absolute Monocytes 0.4 10^3/uL (0.1-0.6); Absolute Neutrophils 8.1 10^3/uL (1.4-6.5); Hematocrit 22.7 % (39.0-52.0); Hemoglobin 7.1 g/dL (13.0-18.0); Mean Corp Hgb Conc. 31.3 g/dL (33.0-37.0); Mean Corpuscular Hgb 29.8 pg (27.0-31.0); Mean Corpuscular Volume 95.4 fL (80.0-94.0); Mean Platelet Volume 10.1 fL (7.4-10.4); Nucleated Red Blood Cells % 0.2 % (-); Platelet Count 199 10^3/uL (130-400); Red Blood Cell Count 2.38 10^6/uL (4.70-6.10); Red Cell Dist. Width 17.3 % (11.5-14.5)
[2024-07-11 13:05] LABS: AST (SGOT) 58 U/L (17-59); Albumin 3.2 g/dl (3.5-5.0); Alkaline Phosphatase 203 U/L (38-126); Blood Urea Nitrogen 40 mg/dl (9-20); Carbon Dioxide 31 mmol/L (22-30); Chloride 98 mmol/L (98-107); Glucose 162 mg/dl (70-99); Potassium 4.3 mmol/L (3.5-5.1); Sodium 137 mmol/L (135-145); Total Bilirubin 0.4 mg/dl (0.2-1.3); Total Protein 5.3 g/dl (6.3-8.2); eGFR > 60.00
[2024-07-11 13:15] LABS: ALT (SGPT) 18 U/L (0-50); Calcium 9.1 mg/dl (8.4-10.2); Iron 95 ug/dl (49-181); Percent Saturation 37 % (20-50); Total Iron Binding Capacity 256 ug/dl (261-462)
[2024-07-11 13:33] LABS: PSA, Total - Diagnostic 1.45 ng/ml (0.0-4.0)
== END ==
LOC: REG 11:37
PROVIDERS: ATTENDING PHYSICIAN Internal Medicine Hematology & Oncology; FAMILY PHYSICIAN Family Medicine; REFERRING PHYSICIAN Urology
DX: C61 Malignant neoplasm of prostate (principal); C79.51 Secondary malignant neoplasm of bone; D64.9 Anemia, unspecified
CPT/HCPCS: 36415; 80053; 82728; 83540; 83550; 84153; 85025

== ENCOUNTER 2024-07-13 07:42 | Outpatient (RCR) | payer MEDICARE, BC, SELFPAY ==
[2024-07-13 08:10] VITALS: BP 107/57
[2024-07-13 08:32] VITALS: BP 99/45
[2024-07-13 10:50] VITALS: BP 101/56
[2024-07-13 11:00] VITALS: BP 107/61
== END 2024-07-18 23:59 | disposition home or self-care (01) ==
LOC: OID 07:42
PROVIDERS: ATTENDING PHYSICIAN Internal Medicine Hematology & Oncology; FAMILY PHYSICIAN Family Medicine
DX: C61 Malignant neoplasm of prostate (principal)
CPT/HCPCS: 36415; 36430; 86850; 86900; 86901; 86920; P9016

== ENCOUNTER → 2024-07-16 08:59 | Outpatient (REF) | payer MEDICARE, BC, SELFPAY | LOC: RAD 08:59 | PROVIDERS: ATTENDING PHYSICIAN Internal Medicine Hematology & Oncology; FAMILY PHYSICIAN Family Medicine; REFERRING PHYSICIAN Urology | DX: C61 Malignant neoplasm of prostate (principal); C79.51 Secondary malignant neoplasm of bone; D64.9 Anemia, unspecified | CPT/HCPCS: 71260; 74177; 78306; 82272; A9503; Q9967 ==

== ENCOUNTER → 2024-07-24 10:15 | Outpatient (REF) | payer MEDICARE, BC, SELFPAY ==
[2024-07-24 11:28] LABS: % Immature Granulocytes 1.4 % (0-0.5); % Lymphocytes 3.9 % (20.5-51.1); % Monocytes 5.3 % (1.7-9.3); % Neutrophils 89.4 % (42.2-75.2); Absolute Immature Granulocytes 0.1 10^3/uL (0-0.05); Absolute Lymphocytes 0.3 10^3/uL (1.2-3.4); Absolute Monocytes 0.4 10^3/uL (0.1-0.6); Absolute Neutrophils 6.6 10^3/uL (1.4-6.5); Hematocrit 28.4 % (39.0-52.0); Hemoglobin 8.8 g/dL (13.0-18.0); Mean Corpuscular Hgb 30.1 pg (27.0-31.0); Mean Corpuscular Volume 97.3 fL (80.0-94.0); Mean Platelet Volume 9.9 fL (7.4-10.4); Nucleated Red Blood Cells % 0 % (-); Platelet Count 255 10^3/uL (130-400); Red Blood Cell Count 2.92 10^6/uL (4.70-6.10); Red Cell Dist. Width 18.2 % (11.5-14.5); White Blood Cell Count 7.4 10^3/uL (4.8-10.8)
== END ==
LOC: REG 10:15
PROVIDERS: ATTENDING PHYSICIAN Internal Medicine Hematology & Oncology; FAMILY PHYSICIAN Family Medicine; OTHER PHYSICIAN Nurse Practitioner Family; REFERRING PHYSICIAN Urology
DX: C61 Malignant neoplasm of prostate (principal); C79.51 Secondary malignant neoplasm of bone; D64.9 Anemia, unspecified
CPT/HCPCS: 36415; 85025; 88112

== ENCOUNTER → 2024-08-07 13:27 | Outpatient (REF) | payer MEDICARE, BC, SELFPAY | LOC: MRI 3T 13:27 | PROVIDERS: ATTENDING PHYSICIAN Nurse Practitioner Adult Health; FAMILY PHYSICIAN Family Medicine | DX: C61 Malignant neoplasm of prostate (principal); C79.51 Secondary malignant neoplasm of bone; D64.9 Anemia, unspecified | CPT/HCPCS: 70553; 76014; 76015; A9575 ==

== ENCOUNTER → 2024-08-08 13:39 | Outpatient (REF) | payer MEDICARE, BC, SELFPAY | LOC: MRI 3T 13:39 | PROVIDERS: ATTENDING PHYSICIAN Nurse Practitioner Adult Health; FAMILY PHYSICIAN Family Medicine | DX: C61 Malignant neoplasm of prostate (principal); C79.51 Secondary malignant neoplasm of bone; D64.9 Anemia, unspecified | CPT/HCPCS: 72156; 72157; 76014; 76015; A9575 ==

== ENCOUNTER 2024-08-27 18:08 | Inpatient (IN) | payer MEDICARE, BC, SELFPAY ==
[2024-08-27] VITALS (7 sets, daily range): BP systolic 120–131; BP diastolic 69–79; BMI 23.1; BMI 22.5
[2024-08-27 12:02] LABS: % Basophils 0.2 % (0-2); % Immature Granulocytes 1.3 % (0-0.5); % Lymphocytes 1.3 % (20.5-51.1); % Monocytes 5.3 % (1.7-9.3); % Neutrophils 91.9 % (42.2-75.2); Absolute Immature Granulocytes 0.1 10^3/uL (0-0.05); Absolute Lymphocytes 0.1 10^3/uL (1.2-3.4); Absolute Monocytes 0.3 10^3/uL (0.1-0.6); Absolute Neutrophils 5.5 10^3/uL (1.4-6.5); Hematocrit 32.1 % (39.0-52.0); Hemoglobin 10.1 g/dL (13.0-18.0); Mean Corp Hgb Conc. 31.5 g/dL (33.0-37.0); Mean Corpuscular Hgb 30.4 pg (27.0-31.0); Mean Corpuscular Volume 96.7 fL (80.0-94.0); Mean Platelet Volume 9.2 fL (7.4-10.4); Nucleated Red Blood Cells % 0 % (-); Platelet Count 114 10^3/uL (130-400); Red Blood Cell Count 3.32 10^6/uL (4.70-6.10); Red Cell Dist. Width 16.3 % (11.5-14.5)
[2024-08-27 12:22] LABS: NT-proBNP 2340 pg/ml
[2024-08-27 12:35] LABS: ALT (SGPT) 30 U/L (0-50); AST (SGOT) 65 U/L (17-59); Albumin 3.9 g/dl (3.5-5.0); Alkaline Phosphatase 151 U/L (38-126); Blood Urea Nitrogen 26 mg/dl (9-20); Calcium 9.4 mg/dl (8.4-10.2); Carbon Dioxide 34 mmol/L (22-30); Chloride 98 mmol/L (98-107); Glucose 151 mg/dl (70-99); Sodium 137 mmol/L (135-145); Total Bilirubin 0.5 mg/dl (0.2-1.3); Total Protein 6.1 g/dl (6.3-8.2); eGFR > 60.00
--- NOTE | 2024-08-27 16:25 | ED.GENMED ---
History of Present Illness
General
Chief Complaint: Swelling
Source: patient, records and family
Exam Limitations: none
Time Seen by Provider: 08/27/24 14:42
Nursing documentation reviewed up to this point in time: agreed with
History of Present Illness
History of Present Illness:
Patient is an 89-year-old male with past medical history of congestive heart failure on 40 mg of Lasix, atrial fibrillation status post pacemaker currently anticoagulated on Xarelto, prostate cancer with metastasis, currently undergoing radiation,
presents to the emergency department accompanied by his 2 daughters for evaluation of bilateral lower extremity edema which has worsened over the past 1 to 2 weeks. Patient reports that his doctor actually doubled his Lasix dose in an attempt to
reduce the swelling however it has not made a difference. Patient reports that he does get dyspneic on exertion. He reports that he has multiple steps at his house. He reports that he needs to take a break after he does a flight which is new for
him. Patient denies chest pain. Patient denies abdominal pain, nausea, vomiting. Patient denies any numbness, weakness, tingling to his extremities.
Past History
Past History
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
ED Past Surgical History: Brain (Suboccipital craniotomy age 7), Cardiac (Pacemaker), Orthopedic (Lumbar fusion 2021, knee replacement 2017), Urological (Penile repair 2006, TURP with urethral biopsy March 2024) and Other (inguinal hernia repair
2019, cataract extraction)
Social History
Tobacco: Non-smoker
Alcohol: None
Drug: None
Personal:
Living: with family
Employment: Retired
Family History
Family History: Other (Reviewed and noncontributory)
Review of Systems
Review of Systems
Allergies reviewed?: Yes
All Other Systems: ROS reviewed and negative except as documented in HPI and ROS
Constitutional: Reports no symptoms
EENT: Reports no symptoms
Respiratory: Reports trouble breathing (on exertion)
Cardiac: Reports no symptoms
ABD/GI: Reports no symptoms
: Reports no symptoms
Musculoskeletal: Reports edema
Skin: Reports no symptoms
Neurological: Reports no symptoms
Endocrine: Reports no symptoms
Hematologic/Lymphatic: Reports no symptoms
Psychiatric: Reports no symptoms
Phy Exam
General Physical Exam
General Presentation: well appearing and no apparent distress
General Skin: warm and dry
General Habitus: normal
General Mental: alert
General Hydration: appears well hydrated
ENT Exam
ENT Exam: EOMI, pharynx normal, neck supple and normocephalic
Eye Exam
Eye Exam: PERRL, cornea clear and conjunctiva normal
Cardiovascular Exam
Cardiovascular Exam: regular rate/rhythm, no murmur, normal peripheral pulses and other (bilateral lower extremity pitting edema to the knees)
Pulmonary Exam
Pulmonary Exam: no respiratory distress and other (fine crackles at the bases bilaterally)
Gastrointestinal Exam
Gastrointestinal Exam: normal bowel sounds, non tender, soft, no organomegaly, no pulsatile mass and non distended
Neurological Exam
Neurological Exam: alert, oriented x3, no motor deficits and speech normal
Musculoskeletal Exam
Musculoskeletal Exam: full ROM and no edema
Skin Exam
Skin Exam: normal color, warm/dry, no rash and no petechia
Psychiatric Exam
Psychiatric Exam: normal mood/affect
Scores
Heart Failure Risk
Heart Failure Risk Score: Yes
History of Stroke or TIA: No
History of intubation for respiratory distress: No
Heart rate on ED arrival >/= 110: No
SaO2 <90% on arrival on room air: No
HR >/=110 during 3min walk test (or too ill to perform test): No
ECG has acute ischemic changes: No
Urea >/=12mmol/L (BUN 33.6mg/dL): No
Serum CO2>/=35mmol/L: No
Troponin I or T elevated to NV Level (0.4mg/dL): No
NT-proBNP >/=5,000ng/L (5,000pg/ml): No
HF Risk Score: 0
Admission Status: LOW RISK 2.8% Consider discharge to home with f/u visit to PCP/Physician Office Assistant
Course
Orders/Labs/Results
Orders:
Orders
08/27/24 11:51
Complete Blood Count/With Diff Urgent
Comprehensive Metabolic Panel Urgent
Pro-BNP [NT-proBNP] Urgent
08/27/24 15:23
CR Chest - 2 Views Urgent
Comment:
Reason For Exam: bilateral lower extremity edema, elevated bnp
08/27/24 16:29
Furosemide [Lasix] 40 mg IV NOW STA
08/27/24 17:00
Furosemide [Lasix] 40 mg IV NOW STA
08/27/24 17:12
Dexamethasone [Decadron] 4 mg PO NOW STA
Abnormal Lab Results
08/27/24
11:51
RBC 3.32 L 10^6/uL
(4.70-6.10)
Hgb 10.1 L g/dL
(13.0-18.0)
Hct 32.1 L %
(39.0-52.0)
MCV 96.7 H fL
(80.0-94.0)
MCHC 31.5 L g/dL
(33.0-37.0)
RDW 16.3 H %
(11.5-14.5)
Plt Count 114 L 10^3/uL
(130-400)
Abs Immat Gran (auto) 0.1 H 10^3/uL
(0-0.05)
Absolute Lymphs (auto) 0.1 L 10^3/uL
(1.2-3.4)
Immature Gran % 1.3 H %
(0-0.5)
Neutrophils % 91.9 H %
(42.2-75.2)
Lymphocytes % 1.3 L %
(20.5-51.1)
Carbon Dioxide 34 H mmol/L
(22-30)
BUN 26 H mg/dl
(9-20)
Glucose 151 H mg/dl
(70-99)
AST 65 H U/L
(17-59)
Alkaline Phosphatase 151 H U/L
(38-126)
Total Protein 6.1 L g/dl
(6.3-8.2)
08/27/24 11:51
08/27/24 11:51
Vital Signs
Initial and Last Documented VS:
Initial Vital Signs
Temp Pulse Resp BP Pulse Ox
98.4 F 79 18 121/69 98
08/27/24 11:41 08/27/24 11:41 08/27/24 11:41 08/27/24 11:41 08/27/24 11:41
Last Documented Vital Signs
Temp Pulse Resp BP Pulse Ox
98.4 F 60 18 120/77 96
08/27/24 11:41 08/27/24 16:51 08/27/24 11:41 08/27/24 17:00 08/27/24 17:00
*Critical Care Note
Total Time (30-74mins, 75-104mins- exclusive of procedures): Not Applicable
Update Note
Update Note:
89-year-old male with multiple comorbidities including congestive heart failure whose Lasix was recently doubled for bilateral lower extremity edema, currently being treated with radiation for metastatic prostate cancer, brought to the emergency
department by his daughters for evaluation of bilateral lower extremity edema. Patient does note dyspnea on exertion at home as well. On arrival, patient's vital signs are stable, he is afebrile. On exam, patient is well-appearing, he is in no
acute distress, he does have significant bilateral pitting edema all the way up to his knees. Labs were obtained while the patient was in the waiting room and are notable for a significantly elevated BNP. Chest x-ray was obtained and does
demonstrate a small pleural effusion. At this time, will give a dose of IV Lasix and admit for further treatment of his suspected of heart failure exacerbation. Plan discussed with the patient and his family who expressed understanding and agreed.
ED Attending Note
-
Portions of this chart may have been created with voice recognition software.� Occasional wrong word or��sound alike� substitutions may have occurred due to the inherent limitations of voice recognition software.
Discharge Plan
Departure
Patient Disposition: Admit
Date of Disposition: 08/27/24
Time of Disposition: 16:33
Presentation/result/management discussed w/ accepting MD/DO: Hospitalist
Patient with high blood pressure during this ER visit?: No
Condition: Good
Covid-19: Not Applicable
Discharge Problem:
Acute exacerbation of CHF (congestive heart failure)
Prescriptions:
No Action
metoprolol succinate 25 MG tablet extended release 24 hr
12.5 mg PO DAILY
furosemide 40 MG tablet
40 mg PO DAILY
multivitamin Tablet
1 tab PO DAILY@1400
ferrous sulfate 325 mg (65 mg iron) Tablet
325 mg PO BID
Phospha 250 Neutral 250 mg Tablet
1 tab PO DAILY@1400
Xarelto 20 mg Tablet
20 mg PO DAILY
leuprolide acetate (6 month) 45 mg Syringe
45 mg SC [id number]
cholecalciferol (vitamin D3) [Vitamin D3] 25 mcg (1,000 unit) Tablet
25 mcg PO DAILY
mirabegron [Myrbetriq] 25 mg Tablet Extended Release 24 Hr
50 mg PO DAILY
pantoprazole 40 mg Tablet,Delayed Release (Dr/Ec)
40 mg PO DAILY 30 Days Qty: 30 0RF
polyethylene glycol 3350 [Miralax] 17 gram Powder In Packet
17 g PO DAILY
ondansetron HCl [Zofran] 8 mg Tablet
8 mg PO Q8HPRN PRN (Reason: nausea)
acetaminophen-codeine 300-30 mg tablet
1 tab PO BID
dexamethasone 4 mg Tablet
4 mg PO BID
docusate sodium [Colace] 100 mg Capsule
200 mg PO DAILY
magnesium citrate Solution
75 ml PO DAILYPRN PRN (Reason: if mirala does not work)
melatonin 10 mg Tablet
10 mg PO HSPRN PRN (Reason: sleep)
acetaminophen [Tylenol Extra Strength] 500 mg tablet
1,000 mg PO BIDPRN PRN (Reason: break through pain)
Referrals:
UNKNOWN - PT DOES,NOT KNOW [Unknown Provider]
Interventions
Interventions:
*Risk Screen - Suicide Last Done: 08/27/24 11:41
*General Assessment Last Done: 08/27/24 11:41
*Neglect/Abuse Screening Last Done: 08/27/24 11:41
*ED- Fall Risk Assessment Last Done: 08/27/24 11:41
*ED COVID-19 Vaccine History Last Done: 08/27/24 11:41
ED- Cardiac Assessment Last Done: 08/27/24 15:37
ED- Pulmonary Assessment Last Done: 08/27/24 15:37
ED-Skin Assessment Last Done: 08/27/24 15:37
Discharge Date and Time
Print Language: DIVEHI
[2024-08-27] MEDS: LASIX 40 MG IV ×2 (16:51→18:00)
--- NOTE | 2024-08-27 16:51 | HPS.HSE ---
Family Physician
-
Family Physician: Maurisio Barajas
Chief Complaint
-
B/L LE edema
History of Present Illness
89 y/o M with PMHx:
L oculomotor nerve palsy
Hyponatremia
Anemia of chronic disease
h/o prostate cancer with sacral metastases
Chronic atrial fibrillation
h/o PPM
Chronic HFpEF
Recurrent headaches
who p/w CC B/L LE edema. The history is obtained from the patient as well as to with the patient's daughters. Over the last few weeks they have noticed that he has had increased lower extremity edema. His Lasix was doubled over the last 5 days
without improvement. The patient denies paroxysmal nocturnal dyspnea, orthopnea, shortness of breath, chest pain, nausea, vomiting, diarrhea, abdominal pain, lightheadedness, syncope. The patient's daughters also report that has had some
ambulatory dysfunction.
Medical History
Past Medical History
Past Medical History: Reports Other (L oculomotor nerve palsy Hyponatremia Anemia of chronic disease h/o prostate cancer with sacral metastases Chronic atrial fibrillation h/o PPM Chronic HFpEF Recurrent headaches)
Past Surgical History: Reports Other (N/A)
Social History
Tobacco: Non-smoker
Alcohol: None
Drug: None
Family History
Family History: Not pertinent
Allergies / Home Medications
Allergies reflects when Allergies were last updated in [email or web address].
Home Medications with original date entered in [email or web address]
Allergy/Medication List:
Allergies
Allergy/AdvReac Type Severity Reaction Status Date / Time
No Known Allergies Allergy Verified 08/27/24 11:43
Home Medications
metoprolol succinate 25 mg tablet,extended release 24 hr 12.5 mg PO DAILY Blood pressure 01/20/21
furosemide 40 mg tablet 40 mg PO DAILY Fluid retention/Swelling 05/01/21
ferrous sulfate 325 mg (65 mg iron) tablet 325 mg PO BID ANEMIA 03/16/24
multivitamin 1 tab PO DAILY@1400 Supplement 03/16/24
sodium di- and monophosphate-potassium phos monobasic 250 mg tablet (Phospha Neutral) 1 tab PO DAILY@1400 Electrolyte Repletion 03/16/24
cholecalciferol (vitamin D3) 25 mcg (1,000 unit) tablet (Vitamin D3) 25 mcg PO DAILY Supplement 04/26/24
leuprolide acetate (6 month) 45 mg (6 month) subcutaneous syringe 45 mg SC [id number] Hormonal Agent 04/26/24
mirabegron 25 mg tablet,extended release 24 hr (Myrbetriq) 50 mg PO DAILY Urinary Issue 04/26/24
rivaroxaban 20 mg tablet (Xarelto) 20 mg PO DAILY 04/26/24
pantoprazole 40 mg tablet,delayed release 40 mg PO DAILY 30 days #30 tabs 04/30/24
ondansetron HCl 8 mg tablet 8 mg PO Q8HPRN PRN nausea 07/13/24
polyethylene glycol 3350 17 gram oral powder packet (Miralax) 17 g PO DAILY 07/13/24
acetaminophen 300 mg-codeine 30 mg tablet 1 tab PO BID 08/27/24
acetaminophen 500 mg tablet (Tylenol Extra Strength) 1,000 mg PO BIDPRN PRN break through pain 08/27/24
dexamethasone 4 mg tablet 4 mg PO BID 08/27/24
docusate sodium 100 mg capsule (Colace) 200 mg PO DAILY 08/27/24
magnesium citrate 75 ml PO DAILYPRN PRN if mirala does not work 08/27/24
melatonin 10 mg tablet 10 mg PO HSPRN PRN sleep 08/27/24
Review of Systems
-
History Source: Patient
A 12 point ROS was completed and negative except as noted: Yes
Physical Exam
Vital Signs
Vital Signs
Temp Pulse Resp BP Pulse Ox
98.4 F 79 18 121/71 98
08/27/24 11:41 08/27/24 11:41 08/27/24 11:41 08/27/24 14:47 08/27/24 15:00
Physical Exam
General: Other (.)
Laboratory Results
-
08/27/24 11:51
08/27/24 11:51
Laboratory Results
Total Bilirubin 0.5 mg/dl (0.2-1.3) 08/27/24 11:51
AST 65 U/L (17-59) H 08/27/24 11:51
ALT 30 U/L (0-50) 08/27/24 11:51
Alkaline Phosphatase 151 U/L (38-126) H 08/27/24 11:51
Impression/Plan
-
Gen: NAD, AAOx3.
Eyes: EOMI, PERRLA, no scleral icterus.
Neck: supple.
CV: RRR, +S1/S2, no m/r/g.
Resp: dec BS L base, rales in the R base
Abd: +BS, soft, NT, ND
Skin: No rashes. 3+ B/L LE edema
Neuro: CN 2-12 intact, non-focal.
Psych: Normal mood and affect.
CXR: Small left pleural effusion with associated probable atelectasis.
Acute on chronic HFpEF:
-CXR above
-proBNP 2340
-Lasix 80mg IV BID
-daily wts, I/Os
-cont BB
-c/s cardiology
-update echo
-PT/OT with ambulatory dysfunction as per daughters
Chronic atrial fibrillation
-h/o PPM
-cont BB/Xarelto
Other problems:
L oculomotor nerve palsy
h/o Hyponatremia, none currently
Anemia of chronic disease: Hb stable
h/o prostate cancer with sacral metastases: just completed a cycle of XRT, cont Decadron
Recurrent headaches
FULL/Xarelto
[2024-08-27] MEDS: DECADRON 4 MG PO (18:08)
[2024-08-27] MEDS: TYLENOL #3 1 TABLET PO (20:03)
[2024-08-27] MEDS: MELATONIN 10 MG PO (20:04)
[2024-08-27] MEDS: FEOSOL 325 MG PO (20:04)
--- NOTE | 2024-08-27 23:26 | PTCARENOTE ---
1900- pt received from ED via stretcher w/ daughters at bedside; Telemetry order> Paced on monitor (telemetry strip placed in pt chart)
VSS> Afebrile, HR 67, RR 18, BP 122/71, pox 99% room air. No c/o pain. AAOx3 forgetful at times, [place] w/ 2 sets B/L hearing aides at bedside w/ 1 monitor worker. Assist x1-general weakness. B/L LEs weeping fluid r/t edema-cleansed and wound care dressings
applied. Refer to worklist for additional skin assessment. Static air overlay applied to bed. Pt w/ own pullup-incontinent at times. BSC and urinal setup at bedside. Pt placed on strict I&Os.
Medications and PMH reviewed by this RN, pt, and daughter/medical records. Plan of care discussed. Call riggins within reach.
[2024-08-28] VITALS (8 sets, daily range): BP systolic 97–142; BP diastolic 58–87; PULSE 61; BMI 22.3
[2024-08-28 07:15] LABS: Hematocrit 29.3 % (39.0-52.0); Hemoglobin 9.3 g/dL (13.0-18.0); Mean Corp Hgb Conc. 31.7 g/dL (33.0-37.0); Mean Corpuscular Hgb 30.7 pg (27.0-31.0); Mean Corpuscular Volume 96.7 fL (80.0-94.0); Mean Platelet Volume 9.9 fL (7.4-10.4); Platelet Count 112 10^3/uL (130-400); Red Blood Cell Count 3.03 10^6/uL (4.70-6.10); Red Cell Dist. Width 16.3 % (11.5-14.5)
[2024-08-28] MEDS: DECADRON 4 MG PO ×2 (07:38→19:35)
[2024-08-28] MEDS: MYRBETRIQ EXTENDED RELEASE 50 MG PO (07:38)
[2024-08-28] MEDS: XARELTO 20 MG PO (07:38)
[2024-08-28] MEDS: COLACE 200 MG PO (07:38)
[2024-08-28] MEDS: TYLENOL #3 1 TABLET PO ×2 (07:39→19:36)
[2024-08-28] MEDS: FEOSOL 325 MG PO ×2 (07:39→19:35)
[2024-08-28] MEDS: MIRALAX 17 GRAMS PO (07:39)
[2024-08-28] MEDS: VITAMIN D3 (cholecalciferol) 25 MCG PO (07:39)
[2024-08-28] MEDS: TOPROL XL 12.5 MG PO (07:39)
[2024-08-28] MEDS: PROTONIX 40 MG PO (07:39)
[2024-08-28] MEDS: LASIX 80 MG IV ×2 (07:39→15:44)
[2024-08-28 07:48] LABS: Blood Urea Nitrogen 26 mg/dl (9-20); Calcium 8.9 mg/dl (8.4-10.2); Carbon Dioxide 35 mmol/L (22-30); Chloride 99 mmol/L (98-107); Estimated Creatinine Clearance 66 ml/min; Glucose 127 mg/dl (70-99); Potassium 3.7 mmol/L (3.5-5.1); Sodium 138 mmol/L (135-145); eGFR > 60.00
--- NOTE | 2024-08-28 08:32 | VNURNOTE ---
Chart reviewed. Patient is current with [facility] nursing. Will continue to follow hospital course and DC plans.
--- NOTE | 2024-08-28 08:48 | W.PN.HOSP.TC ---
Today's Communication/Plan
-
see plan
Assessment / Plan
Assessment / Plan
Gen: NAD, AAOx3.
Eyes: EOMI, PERRLA, no scleral icterus.
Neck: supple.
CV: RRR, +S1/S2, 1/6 systolic murmur
Resp: remains dec BS L base, rales in the R base
Abd: +BS, soft, NT, ND
Skin: No rashes. 2+ B/L LE edema
Neuro: CN 2-12 intact, non-focal.
Psych: Normal mood and affect.
CXR: Small left pleural effusion with associated probable atelectasis.
Acute on chronic HFpEF:
-CXR above
-proBNP 2340
-Lasix 80mg IV BID
-daily wts, I/Os
-cont BB
-c/s cardiology
-update echo
-PT/OT with ambulatory dysfunction as per daughters
Chronic atrial fibrillation
-h/o PPM
-cont BB/Xarelto
Other problems:
h/o L oculomotor nerve palsy
h/o Hyponatremia, none currently
Anemia of chronic disease: Hb stable
h/o prostate cancer with sacral metastases: just completed a cycle of XRT, cont Decadron
Recurrent headaches
FULL/Xarelto
Anticipated Discharge: 24 - 48 hours
Subjective/Interval History
-
Date of Service: August 28, 2024
Denies CP/SOB.
Objective Data
-
Labs:
Laboratory Results
08/28/24
06:35
WBC 5.0
Hgb 9.3 L
Hct 29.3 L
Plt Count 112 L
Sodium 138
Potassium 3.7
Chloride 99
Carbon Dioxide 35 H
BUN 26 H
Creatinine 0.7
Glucose 127 H
Calcium 8.9
Vital Signs:
Vital Signs
Temp Pulse Resp BP Pulse Ox
97.8 F 82 16 130/78 98
08/28/24 07:05 08/28/24 07:39 08/28/24 07:05 08/28/24 07:39 08/28/24 07:05
I&O
08/27/24 08/28/24 08/29/24
06:59 06:59 06:59
Output Total 1949
Balance -1949 / -1949
--- NOTE | 2024-08-28 09:30 | CON.CAR ---
Addendum entered and electronically signed by Pete Zuniga MD 08/28/24 10:35:
I ordered bilat LE Venous U/s
Original Note:
Consultation
Consultation Request
Date/Time Consultation Requested: 08/27/2024 at 1859 hrs
Date/Time Consultation Performed: 08/27/2024 at about 0830 hrs
Requesting Provider: Juno Pickard MD
Performing Provider: Pete Zuniga MD
Reason for Consultation: Heart failure exacerbation
Medical History
-
Chief Complaint: Lower extremity edema
History of Present Illness:
Card: MD Tosin
PCP: Benigno Barajas MD
Mr Mendiola was admitted with increasing LE edema unresponsive to increased outpatient diuretic therapy. He denies dyspnea, PND, or orthopnea.
Past Medical History
Past Medical History: Arrhythmias (permanent AFib. complete heart block dione (2017)), CHF (suspected chronic HFpEF) and Other (Widely metastatic prostate. Prior cranial nerve involvement (oculomotor n palsy). Anemia. Hx NSVT)
Past Surgical History: Orthopedic (spine surgery) and Other (pacemaker placement)
Social History
Tobacco: Non-Smoker
Personal:
Living: Alone ('s daughters help him)
Family History
Family History: Other (no premature CAD)
Allergies / Home Medications
Allergy/AdvReac Type Severity Reaction Status Date / Time
No Known Allergies Allergy Verified 08/27/24 11:43
�Medication �Instructions �Recorded �Confirmed �Type
metoprolol succinate 25 mg 12.5 mg PO DAILY Blood pressure 01/20/21 08/27/24 History
tablet,extended release 24 hr
furosemide 40 mg tablet 40 mg PO DAILY Fluid 05/01/21 08/27/24 History
retention/Swelling
ferrous sulfate 325 mg (65 mg 325 mg PO BID ANEMIA 03/16/24 08/27/24 History
iron) tablet
multivitamin 1 tab PO DAILY@1400 Supplement 03/16/24 08/27/24 History
sodium di- and 1 tab PO DAILY@1400 Electrolyte 03/16/24 08/27/24 History
monophosphate-potassium phos Repletion
monobasic 250 mg tablet (Phospha
Neutral)
cholecalciferol (vitamin D3) 25 25 mcg PO DAILY Supplement 04/26/24 08/27/24 History
mcg (1,000 unit) tablet (Vitamin
D3)
leuprolide acetate (6 month) 45 mg 45 mg SC [id number] Hormonal Agent 04/26/24 08/27/24 History
(6 month) subcutaneous syringe
mirabegron 25 mg tablet,extended 50 mg PO DAILY Urinary Issue 04/26/24 08/27/24 History
release 24 hr (Myrbetriq)
rivaroxaban 20 mg tablet (Xarelto) 20 mg PO DAILY Blood Clot 04/26/24 08/27/24 History
Prevention/Tx
pantoprazole 40 mg tablet,delayed 40 mg PO DAILY 30 days #30 tabs 04/30/24 08/27/24 Rx
release
ondansetron HCl 8 mg tablet 8 mg PO Q8HPRN PRN nausea 07/13/24 08/27/24 History
polyethylene glycol 3350 17 gram 17 g PO DAILY Constipation 07/13/24 08/27/24 History
oral powder packet (Miralax)
acetaminophen 300 mg-codeine 30 mg 1 tab PO BID Pain 08/27/24 08/27/24 History
tablet
acetaminophen 500 mg tablet 1,000 mg PO BIDPRN PRN break 08/27/24 08/27/24 History
(Tylenol Extra Strength) through pain
dexamethasone 4 mg tablet 4 mg PO BID INFLAMMATION 08/27/24 08/27/24 History
docusate sodium 100 mg capsule 200 mg PO DAILY STOOL SOFTENER 08/27/24 08/27/24 History
(Colace)
magnesium citrate 75 ml PO DAILYPRN PRN if mirala 08/27/24 08/27/24 History
does not work
melatonin 10 mg tablet 10 mg PO HSPRN PRN sleep 08/27/24 08/27/24 History
Review of Systems
-
Respiratory: No Symptoms
Cardiac: Chest Pain and Other (denies chest pain or syncope)
Physical Exam
Vital Signs
Temp Pulse Resp BP Pulse Ox
97.8 F 82 16 130/78 98
08/28/24 07:05 08/28/24 07:39 08/28/24 07:05 08/28/24 07:39 08/28/24 07:05
Lab Results
08/28/24 06:35
08/28/24 06:35
Uju-G-Huwawmomvys Pept 2340 pg/ml 08/27/24 11:51
Physical Exam
General: No Apparent Distress
HEENT: Normocephalic
Respiratory: Clear
Cardiac: S1/S2, Regular Rhythm and Peripheral Edema (1-2+ LE edema, bilat)
GI: Soft and Non Tender
Musculoskeletal: No Clubbing
Skin: Warm
Neuro: Awake
Impression / Plan
-
Research Aide: Tosin
LE Edema
- May be related to heart failure but should consider other causes
- Agree with diuresis
- Check echo
Widely metastatic prostate cancer
- Not sure prognosis given to him but it seems likely prognosis is poor
Complete AV block, pacer with devan function by tele and device check, CHASTITY estimated 6 months from 08/18/2024
Permanent AFib/AT
Subjective:
Denies CP or dyspnea
Data Reviewed
-
EKG: Tracing Personally Visualized and interpreted (V paced with underlying ATach)
Radiology: Image Personally Visualized and interpreted (CXR 08/27/2024: Dual pacer, no congestion of lungs, suspect small L effusion, hardware in T spine), Report Reviewed by me (MRI spine: extensive mets T spine and C spine. MRI brain 07/2024: 3 mm
acute infarct, several locations) and Other (Nicol Nuc stress 2018: NO ischmemia/infaction)
Ultrasound: Other (Cardiac echo 03/2021: LVEF 50%, possible septal and apical hypo, valves ok)
--- NOTE | 2024-08-28 10:20 | CM ---
CM following re: discharge planning.
Reviewed pt's chart, met with pt.
Pt is an 89 year old male, admitted with primary dx of Acute on chronic HFpE.
Pt reports he lives alone in a 2SH, 3 steps to enter, has 3 supportive daughters. Pt described himself as independent in all areas [employer], uses a cane when needed, current with [facility] and was at [facility]. Pt expressed his desire to return back home at
discharge and pt stated his daughter will transport home.
[facility] liaison following.
PCP: Maurisio Barajas
Pharmacy: [facility].
D/C plan: home with resumptions of [facility] and family support. Daughter to transport at discharge.
CM will follow with discharge plan updates as hospitalization progresses
--- NOTE | 2024-08-28 13:09 | PTCARENOTE ---
BP this afternoon was 98/59, rechecked an hour later at 102/58. made aware, no new orders at this time.
[2024-08-28] MEDS: THERAGRAN 1 TABLET PO (15:43)
[2024-08-28] MEDS: NEUTRA-PHOS POWDER PACKET 250 MG PO (15:44)
[2024-08-28] MEDS: MELATONIN 10 MG PO (20:53)
[2024-08-29 03:00] VITALS: BP 101/64
[2024-08-29 05:36] VITALS: BMI 22.0
[2024-08-29 06:36] LABS: Blood Urea Nitrogen 30 mg/dl (9-20); Calcium 9.5 mg/dl (8.4-10.2); Carbon Dioxide 32 mmol/L (22-30); Chloride 97 mmol/L (98-107); Estimated Creatinine Clearance 57 ml/min; Glucose 133 mg/dl (70-99); Potassium 3.6 mmol/L (3.5-5.1); Sodium 136 mmol/L (135-145); eGFR > 60.00
[2024-08-29 07:05] VITALS: BP 111/62
[2024-08-29] MEDS: MYRBETRIQ EXTENDED RELEASE 50 MG PO (07:33)
[2024-08-29] MEDS: XARELTO 20 MG PO (07:33)
[2024-08-29] MEDS: FEOSOL 325 MG PO ×2 (07:33→20:39)
[2024-08-29] MEDS: VITAMIN D3 (cholecalciferol) 25 MCG PO (07:33)
[2024-08-29] MEDS: COLACE 200 MG PO (07:33)
[2024-08-29] MEDS: TOPROL XL 12.5 MG PO (07:34)
[2024-08-29] MEDS: DECADRON 4 MG PO ×2 (07:34→20:39)
[2024-08-29] MEDS: PROTONIX 40 MG PO (07:34)
[2024-08-29] MEDS: MIRALAX 17 GRAMS PO (07:34)
[2024-08-29] MEDS: TYLENOL #3 1 TABLET PO ×2 (07:34→20:39)
[2024-08-29] MEDS: LASIX 80 MG IV (07:34)
--- NOTE | 2024-08-29 08:26 | W.PN.HOSP.TC ---
Today's Communication/Plan
-
see plan
Assessment / Plan
Assessment / Plan
Gen: NAD, AAOx3.
Eyes: EOMI, PERRLA, no scleral icterus.
Neck: supple.
CV: remains RRR, +S1/S2, 1/6 systolic murmur
Resp: continues to remain dec BS L base, rales in the R base
Abd: +BS, soft, NT, ND
Skin: No rashes. 2-3+ B/L LE edema
Neuro: CN 2-12 intact, non-focal.
Psych: Normal mood and affect.
CXR: Small left pleural effusion with associated probable atelectasis.
Echo: Normal biventricular size and systolic function without regional wall motion abnormality. Mild aortic regurgitation. Mild pulmonary hypertension. Compared to the prior on 04/06/21, the ejection fraction is now normal. The PASP is now 45mmHg.
B/L LE U/S: No sonographic evidence for lower extremity venous thrombosis.
Acute on chronic HFpEF:
-CXR/echo above
-proBNP 2340
-Lasix 80mg IV BID
-daily wts, I/Os
-cont BB
-cardiology following
-PT/OT with ambulatory dysfunction as per daughters
Chronic atrial fibrillation
-h/o PPM
-cont BB/Xarelto
Other problems:
h/o L oculomotor nerve palsy
h/o Hyponatremia, none currently
Anemia of chronic disease: Hb stable
h/o prostate cancer with sacral metastases: just completed a cycle of XRT, cont Decadron
Recurrent headaches
FULL/Xarelto
Anticipated Discharge: Within 24 hours
Subjective/Interval History
-
Date of Service: August 29, 2024
Denies shortness of breath.
Objective Data
-
Labs:
Laboratory Results
08/29/24
05:43
Sodium 136
Potassium 3.6
Chloride 97 L
Carbon Dioxide 32 H
BUN 30 H
Creatinine 0.8
Glucose 133 H
Calcium 9.5
Vital Signs:
Vital Signs
Temp Pulse Resp BP Pulse Ox
97.8 F 68 16 111/62 97
08/29/24 07:05 08/29/24 07:05 08/29/24 07:05 08/29/24 07:05 08/29/24 07:05
I&O
08/28/24 08/29/24 08/30/24
06:59 06:59 06:59
Intake Total 760 / 760
Output Total 1949 1085 / 1085
Balance -1949 -1949 -325 / -325
--- NOTE | 2024-08-29 08:56 | W.PN.CD ---
Today's Communication / Plan
-
- Echocardiogram yesterday: EF 60-65%; mild AR.
- Continue Lasix 80 mg IV BID.
Impression / Plan
-
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
LE Edema:
- Likely multifactorial; some component of acute on chronic HFpEF.
- Echocardiogram yesterday: EF 60-65%; mild AR.
- Continue Lasix 80 mg IV BID.
Widely metastatic prostate cancer
- Likely poor prognosis.
PPM:
-Normal function by tele and device check, CHASTITY estimated 6 months from 08/18/2024.
Permanent AFib/AT:
- Continue current dose of Toprol-XL.
- Continue Xarelto.
Subjective:
No cardiac complaints this am, other than significant NELY.
Physical Exam
Vital Signs/Labs
Vital Signs
Temp Pulse Resp BP Pulse Ox
97.8 F 68 16 111/62 97
08/29/24 07:05 08/29/24 07:05 08/29/24 07:05 08/29/24 07:05 08/29/24 07:05
08/28/24 08/29/24 08/30/24
06:59 06:59 06:59
Actual Weight 62.505 kg 61.915 kg
08/28/24 06:35
08/29/24 05:43
08/27/24
11:51
Qav-P-Apoxqhamcgh Pept 2340
Physical Exam
Constitutional: No acute distress and Comfortable
EENT: Anicteric
Cardiovascular: Rhythm & rate is regular, Pedal edema present (2-3+), Systolic murmur present (1/6) and S1S2 is normal
Respiratory: Respiratory effort normal and Crackles Present
GI: Soft
Neuro/Psych: AO x 3
Other: Skin (warm, dry)
Data Reviewed
-
Date of Service: August 29, 2024
EKG: Tracing Personally Visualized and interpreted (Telemetry: Atrial fibrillation/V paced)
Echo: Report Reviewed by me (EF 60-65%, mild aortic regurgitation, mild tricuspid regurgitation, PASP 45 mmHg.)
Labs: Labs Reviewed by me
Old Records: Reviewed (Outpatient Cardiology office visit notes.)
--- NOTE | 2024-08-29 11:24 | CM ---
CM following re: discharge planning.
Reviewed pt's chart, met with pt.
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 Pt expressed his desire to return back home at discharge and pt stated his
daughter will transport home.
PT and OT evaluations noted - pt likely has no skilled PT/OT needs.
[facility] liaison following.
D/C plan: home with resumptions of [facility] and family support. Daughter to transport at discharge.
CM will follow with discharge plan updates as hospitalization progresses
[2024-08-29 11:43] VITALS: BP 98/57
[2024-08-29] MEDS: TYLENOL 1000 MG PO (13:03)
[2024-08-29] MEDS: NEUTRA-PHOS POWDER PACKET 250 MG PO (13:03)
[2024-08-29] MEDS: THERAGRAN 1 TABLET PO (13:03)
[2024-08-29 15:00] VITALS: BP 99/58
[2024-08-29] MEDS: LASIX IV (16:09)
--- NOTE | 2024-08-29 16:12 | PTCARENOTE ---
Due for 80mg IV lasix dose at 1600 but BP is 99/58. Mangle Tender made aware and will hold dose.
[2024-08-29 19:07] VITALS: BP 102/55
[2024-08-29 23:18] VITALS: BP 110/57
[2024-08-30] VITALS (7 sets, daily range): BP systolic 86–129; BP diastolic 43–73; BMI 22.0
[2024-08-30] MEDS: TYLENOL 1000 MG PO (04:58)
[2024-08-30 06:58] LABS: Blood Urea Nitrogen 26 mg/dl (9-20); Calcium 8.9 mg/dl (8.4-10.2); Carbon Dioxide 32 mmol/L (22-30); Chloride 98 mmol/L (98-107); Estimated Creatinine Clearance 65 ml/min; Glucose 128 mg/dl (70-99); Potassium 3.4 mmol/L (3.5-5.1); Sodium 135 mmol/L (135-145); eGFR > 60.00
--- NOTE | 2024-08-30 08:03 | W.PN.CD ---
Today's Communication / Plan
-
- PM dose of Lasix 80 mg IV yesterday due to hypotension.
- Unfortunately, his blood pressure will preclude continuing high-dose diuretics.
- Will place on Lasix 40 mg PO BID, which should be new home regimen.
- Given clinical decline overall and poor prognosis, discussions with palliative care/hospice should be initiated.
Impression / Plan
-
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
LE Edema:
- Likely multifactorial; some component of acute on chronic HFpEF.
- Echocardiogram 08/28/24: EF 60-65%; mild AR.
- PM dose of Lasix 80 mg IV yesterday due to hypotension.
- Unfortunately, his blood pressure will preclude continuing high-dose diuretics.
- Will place on Lasix 40 mg PO BID, which should be new home regimen.
- Given clinical decline overall and poor prognosis, discussions with palliative care/hospice should be initiated.
Widely metastatic prostate cancer
- Likely poor prognosis.
PPM:
-Normal function by tele and device check, CHASTITY estimated 6 months from 08/18/2024.
-Stable.
Permanent AFib/AT:
- Continue current dose of Toprol-XL.
- Continue Xarelto.
Subjective:
Low blood pressure last night and this a.m. No cardiac complaints. Still with significant lower extremity edema.
Physical Exam
Vital Signs/Labs
Vital Signs
Temp Pulse Resp BP Pulse Ox
98.3 F 61 14 89/51 94
08/30/24 07:41 08/30/24 07:41 08/30/24 07:41 08/30/24 07:41 08/30/24 07:41
08/29/24 08/30/24 08/31/24
06:59 06:59 06:59
Actual Weight 61.915 kg 61.825 kg
08/28/24 06:35
08/30/24 05:52
06/09/25
11:51
Fle-O-Lozqwhvlrnb Pept 2340
Physical Exam
Constitutional: No acute distress and Comfortable
EENT: Anicteric
Cardiovascular: Rhythm/rate is irregular, Pedal edema present (2-3+), Systolic murmur present (2/6) and S1S2 is normal
Respiratory: Respiratory effort normal and Lungs clear to auscul.
GI: Soft
Neuro/Psych: AO x 3
Other: Skin (warm)
Data Reviewed
-
Date of Service: August 30, 2024
EKG: Tracing Personally Visualized and interpreted (Telemetry: Paced)
Echo: Report Reviewed by me (EF 60-65%, mild AR)
Labs: Labs Reviewed by me
[2024-08-30] MEDS: MYRBETRIQ EXTENDED RELEASE 50 MG PO (08:11)
[2024-08-30] MEDS: COLACE 200 MG PO (08:12)
[2024-08-30] MEDS: FEOSOL 325 MG PO ×2 (08:12→21:14)
[2024-08-30] MEDS: XARELTO 20 MG PO (08:12)
[2024-08-30] MEDS: KCL 40 MEQ PO (08:12)
[2024-08-30] MEDS: LASIX 40 MG PO ×2 (08:14→17:12)
[2024-08-30] MEDS: PROTONIX 40 MG PO (08:15)
[2024-08-30] MEDS: TOPROL XL 12.5 MG PO (08:15)
[2024-08-30] MEDS: VITAMIN D3 (cholecalciferol) 25 MCG PO (08:15)
[2024-08-30] MEDS: TYLENOL #3 1 TABLET PO ×2 (08:15→21:14)
[2024-08-30] MEDS: MIRALAX 17 GRAMS PO (08:16)
[2024-08-30] MEDS: DECADRON 4 MG PO ×2 (08:18→21:14)
--- NOTE | 2024-08-30 08:35 | W.PN.HOSP.TC ---
Today's Communication/Plan
-
see plan
Assessment / Plan
Assessment / Plan
Gen: NAD, AAOx3.
Eyes: EOMI, PERRLA, no scleral icterus.
Neck: supple.
CV: continues to remain RRR, +S1/S2, 1/6 systolic murmur
Resp: CTAB anteriorly
Abd: +BS, soft, NT, ND
Skin: LLE cellulitis, 2-3+ B/L LE edema
Neuro: CN 2-12 intact, non-focal.
Psych: Normal mood and affect.
CXR: Small left pleural effusion with associated probable atelectasis.
Echo: Normal biventricular size and systolic function without regional wall motion abnormality. Mild aortic regurgitation. Mild pulmonary hypertension. Compared to the prior on 04/06/21, the ejection fraction is now normal. The PASP is now 45mmHg.
B/L LE U/S: No sonographic evidence for lower extremity venous thrombosis.
Acute on chronic HFpEF:
-CXR/echo above
-proBNP 2340
-was on IV Lasix, now transitioned to PO Lasix
-daily wts, I/Os
-cont BB
-cardiology following
-PT/OT with ambulatory dysfunction as per daughters
-with hypotension start Midodrine 2.5mg TID
LLE cellulitis:
-start Ancef
-c/s ID
Chronic atrial fibrillation
-h/o PPM
-cont BB/Xarelto
Other problems:
Hypokalemia: 40meq PO K
h/o L oculomotor nerve palsy
h/o Hyponatremia, none currently
Anemia of chronic disease: Hb stable
h/o prostate cancer with sacral metastases: just completed a cycle of XRT, cont Decadron
Recurrent headaches
Pt's daughter updated over the phone at length.
FULL/Xarelto
Total time spent on today's encounter was 50 minutes which included time spent in counseling the patient/family regarding diagnosis and treatment plan as listed above, goals of care, and symptom management. Case was discussed with nursing staff,
specialists, and care coordinators/case management. All labs and imaging personally reviewed by me. Remainder the time spent in detailed review of previous records, lab data, imaging, and other medical provider documentation.
Anticipated Discharge: 24 - 48 hours
Subjective/Interval History
-
Date of Service: August 30, 2024
No new complaints.
Objective Data
-
Labs:
Laboratory Results
08/30/24
05:52
Sodium 135
Potassium 3.4 L
Chloride 98
Carbon Dioxide 32 H
BUN 26 H
Creatinine 0.7
Glucose 128 H
Calcium 8.9
Vital Signs:
Vital Signs
Temp Pulse Resp BP Pulse Ox
98.3 F 65 14 96/47 94
08/30/24 07:41 08/30/24 08:15 08/30/24 07:41 08/30/24 08:15 08/30/24 07:41
I&O
08/29/24 08/30/24 08/31/24
06:59 06:59 06:59
Intake Total 760 / 760 1320 / 1320
Output Total 1085 / 1085 575 / 575
Balance -325 / -325 745 / 745
[2024-08-30] MEDS: ProAmatine 2.5 MG PO ×4 (09:54→22:56)
[2024-08-30] MEDS: ANCEF 10 IV ×2 (10:24→17:12)
[2024-08-30] MEDS: NEUTRA-PHOS POWDER PACKET 250 MG PO (13:45)
[2024-08-30] MEDS: THERAGRAN 1 TABLET PO (13:45)
--- NOTE | 2024-08-30 14:52 | CM ---
CM following re: discharge planning.
Reviewed pt's chart, met with pt.
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 Pt expressed his desire to return back home at discharge and pt stated his
daughter will transport home.
PT and OT evaluations noted - pt likely has no skilled PT/OT needs.
[facility] liaison following.
D/C plan: home with resumptions of [facility] and family support. Daughter to transport at discharge.
CM will follow with discharge plan updates as hospitalization progresses
--- NOTE | 2024-08-30 15:02 | CON.ID ---
Consultation
-
Date/Time Consultation Requested: August 30, 2024 1246
Date/Time Consultation Performed: August 30, 2024 1500
Requesting Provider: Dr. Juno Pickard
Performing Provider: Dr. Luzma Resendiz
Reason for Consultation: Cellulitis
Chief Complaint / Past History
Chief Complaint
Leg swelling
History of Present Illness
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 He states that
both of his legs started swelling approximately 2 weeks ago. Swelling got worse. His left leg developed redness from foot up to his powell. He came to the ER on August 27. Peripheral vascular ultrasound negative DVT. Acute on chronic CHF suspected.
He was started on diuresis. Today cefazolin added. He denies bumping his legs. No pain. No fevers or chills. The right leg swelling has improved. The left leg minimal improvement.
Past History
Additional Past Medical History:
Chronic atrial fibrillation
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
HFpEF
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
Allergy History:
No Known Allergies Allergy (Verified 08/27/24 11:43)
Medications Reviewed: Yes
Current Antibiotics:
Cefazolin 2g IV q8h
Social History
Tobacco: Non-Smoker
Alcohol: None
Drug: None
Personal:
Family History
Family History: Not Pertinent
Review of Systems
Review of Systems
General: Negative Fever, Chills or Change in Appetite
HEENT: Negative Sinus Problems, Headache or Pharyngitis
Cardiovascular: Edema; Negative Chest Pain
Respiratory: Negative Dyspnea, Cough or Sputum Production
Gasteroenterology: Negative Nausea, Vomiting or Diarrhea
Genital / Urological: Negative Dysuria or Flank Pain
Endocrine: Weakness
Neurological: Negative Dizziness
All systems: All other systems were reviewed and were negative
Vital Signs
Temp Pulse Resp BP Pulse Ox
98.8 F 61 14 93/47 94
08/30/24 11:24 08/30/24 13:45 08/30/24 11:24 08/30/24 13:45 08/30/24 11:24
Physical Exam
Physical Exam
Constitutional: Chronically Ill
Eyes: No Conjunctival Hemorrhage and Sclera Anicteric
Cardiovascular: Irregular Rate, S1/S2 and Murmur
Pulmonary: Clear
Gastrointestinal: Soft, Non Tender, Non Distended and Normal Bowel Sounds
Extremities: Edema (RLE 2+, LLE 3+) and Erythema (Darkish erythema left foot extending up the leg below knee. + warmth. Ruptured blisters on dorsum of left foot. )
Neurological: AO x 3
Lab / Diagnostic Study Results
08/28/24 06:35
08/30/24 05:52
Abs Immat Gran (auto) 0.1 10^3/uL (0-0.05) H 08/27/24 11:51
Absolute Neuts (auto) 5.5 10^3/uL (1.4-6.5) 08/27/24 11:51
Absolute Lymphs (auto) 0.1 10^3/uL (1.2-3.4) L 08/27/24 11:51
Absolute Monos (auto) 0.3 10^3/uL (0.1-0.6) 08/27/24 11:51
Absolute Basos (auto) 0.0 10^3/uL (0-0.2) 08/27/24 11:51
Immature Gran % 1.3 % (0-0.5) H 08/27/24 11:51
Neutrophils % 91.9 % (42.2-75.2) H 08/27/24 11:51
Lymphocytes % 1.3 % (20.5-51.1) L 08/27/24 11:51
Monocytes % 5.3 % (1.7-9.3) 08/27/24 11:51
Eosinophils % 0.0 % (0-6) 08/27/24 11:51
Basophils % 0.2 % (0-2) 08/27/24 11:51
Microbiology Results
Micro:
08/27/24 21:58 MRSA Screen - Final
Nose No Methicillin Resistant Staphylococcus aureus isolated.
08/28/24 Peripheral Vascular US: No sonographic evidence for lower extremity venous thrombosis.
08/27/24 CXR: Small left pleural effusion with associated probable atelectasis.
Assessment / Plan
# LLE nonpurulent cellulitis
# CHF/BLE edema
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
# Chronic afib on Xarelto
# PPM
- Continue cefazolin 2g IV q8h.
-Elevate legs.
- ART-wrap compression to BLE
[2024-08-30] MEDS: ANESTHETIC LOZENGE 1 LOZENGE PO (17:51)
[2024-08-30] MEDS: MELATONIN 10 MG PO (22:43)
[2024-08-31] VITALS (10 sets, daily range): BP systolic 87–119; BP diastolic 45–70; PULSE 63; O2SAT 96; BMI 22.3
[2024-08-31] MEDS: ANCEF 10 IV ×3 (02:08→17:57)
[2024-08-31] MEDS: MYRBETRIQ EXTENDED RELEASE 50 MG PO (08:03)
[2024-08-31] MEDS: DECADRON 4 MG PO ×2 (08:03→19:57)
[2024-08-31] MEDS: COLACE 200 MG PO (08:03)
[2024-08-31] MEDS: TYLENOL #3 1 TABLET PO ×2 (08:03→19:56)
[2024-08-31] MEDS: ProAmatine 2.5 MG PO ×3 (08:03→17:56)
[2024-08-31] MEDS: FEOSOL 325 MG PO ×2 (08:03→19:57)
[2024-08-31] MEDS: MIRALAX 17 GRAMS PO (08:03)
[2024-08-31] MEDS: PROTONIX 40 MG PO (08:03)
[2024-08-31] MEDS: XARELTO 20 MG PO (08:03)
[2024-08-31] MEDS: VITAMIN D3 (cholecalciferol) 25 MCG PO (08:03)
[2024-08-31] MEDS: TOPROL XL 12.5 MG PO (08:29)
[2024-08-31] MEDS: LASIX 40 MG PO ×2 (08:29→17:56)
--- NOTE | 2024-08-31 08:36 | W.PN.HOSP.TC ---
Today's Communication/Plan
-
see plan
Assessment / Plan
Assessment / Plan
Gen: NAD, Awake and alert.
Eyes: EOMI, PERRLA, no scleral icterus.
Neck: supple.
CV: RRR, +S1/S2, 1/6 systolic murmur
Resp: mild rales in the bases
Abd: +BS, soft, NT, ND
Skin: LLE cellulitis (similar to yesterday), 2-3+ B/L LE edema
Neuro: CN 2-12 intact, non-focal.
Psych: Normal mood and affect.
CXR: Small left pleural effusion with associated probable atelectasis.
Echo: Normal biventricular size and systolic function without regional wall motion abnormality. Mild aortic regurgitation. Mild pulmonary hypertension. Compared to the prior on 04/06/21, the ejection fraction is now normal. The PASP is now 45mmHg.
B/L LE U/S: No sonographic evidence for lower extremity venous thrombosis.
Acute on chronic HFpEF:
-CXR/echo above
-proBNP 2340
-was on IV Lasix, now transitioned to PO Lasix
-daily wts, I/Os
-cont BB
-cardiology following
-with hypotension Midodrine 2.5mg TID started 08/30/24
LLE cellulitis:
-cont Ancef as per ID
-elevate LEs, compression
Chronic atrial fibrillation:
-h/o PPM
-cont BB/Xarelto
Other problems:
Hypokalemia: resolved K
h/o prior L oculomotor nerve palsy
h/o Hyponatremia, none currently
Anemia of chronic disease: Hb stable
h/o prostate cancer with sacral metastases: just completed a cycle of XRT, cont Decadron
Recurrent headaches
Pt's daughter updated over the phone at length on 08/30/24.
FULL/Xarelto
Anticipated Discharge: > 48 hours
Subjective/Interval History
-
Date of Service: August 31, 2024
Denies CP/SOB.
Objective Data
-
Vital Signs:
Vital Signs
Temp Pulse Resp BP Pulse Ox
98.5 F 61 17 100/53 95
08/31/24 07:42 08/31/24 08:29 08/31/24 07:42 08/31/24 08:29 08/31/24 07:42
I&O
08/30/24 08/31/24 09/01/24
06:59 06:59 06:59
Intake Total 1320 / 1320 960 / 960
Output Total 575 / 575
Balance 745 / 745 960 / 960
--- NOTE | 2024-08-31 08:49 | W.PN.CD ---
Today's Communication / Plan
-
Continue PO Lasix 40mg BID
Hypotension precludes IV diuresis
Hospice/palliative care recommended
We will not see him over the weekend. Please call with questions.
Impression / Plan
-
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
LE Edema:
- Likely multifactorial; some component of acute on chronic HFpEF.
- Echocardiogram 08/28/24: EF 60-65%; mild AR.
- IV Lasix stopped due to hypotension
- Unfortunately, his blood pressure will preclude continuing high-dose diuretics.
- Continue Lasix 40 mg PO BID, which should be new home regimen.
- Given clinical decline overall and poor prognosis, discussions with palliative care/hospice should be initiated.
Widely metastatic prostate cancer
- Likely poor prognosis.
PPM:
-Normal function by tele and device check, CHASTITY estimated 6 months from 08/18/2024.
-Stable.
Permanent AFib/AT:
- Continue current dose of Toprol-XL.
- Continue Xarelto.
Subjective:
He does not feel that his lower extremity edema has gotten any better. No other CV complaints.
Physical Exam
Vital Signs/Labs
Vital Signs
Temp Pulse Resp BP Pulse Ox
98.5 F 61 17 100/53 95
08/31/24 07:42 08/31/24 08:29 08/31/24 07:42 08/31/24 08:29 08/31/24 07:42
08/30/24 08/31/24 09/01/24
06:59 06:59 06:59
Actual Weight 136 lb 4.8 oz 137 lb 14.4 oz
08/27/24
11:51
Eqz-L-Pfkxztgdkke Pept 2340
Physical Exam
Constitutional: No acute distress and Comfortable
Cardiovascular: Rhythm & rate is regular, Pedal edema present (2-3+ L>R), S1S2 is normal and Murmur/rub/gallop absent
Respiratory: Respiratory effort normal and Crackles Absent
Neuro/Psych: AO x 3
Data Reviewed
-
Date of Service: August 31, 2024
Medical Decision Making: Reviewed Test Results, Independent Historian Assessment, Test Interpretation and Review of Case with other Provider
EKG: Tracing Personally Visualized and interpreted
Echo: Report Reviewed by me
Labs: Labs Reviewed by me
[2024-08-31 09:07] LABS: Hematocrit 31.1 % (39.0-52.0); Hemoglobin 9.8 g/dL (13.0-18.0); Mean Corp Hgb Conc. 31.5 g/dL (33.0-37.0); Mean Corpuscular Hgb 30.2 pg (27.0-31.0); Mean Platelet Volume 9.8 fL (7.4-10.4); Platelet Count 104 10^3/uL (130-400); Red Blood Cell Count 3.24 10^6/uL (4.70-6.10); Red Cell Dist. Width 16.7 % (11.5-14.5); White Blood Cell Count 3.6 10^3/uL (4.8-10.8)
[2024-08-31 09:23] LABS: Blood Urea Nitrogen 27 mg/dl (9-20); Calcium 9.1 mg/dl (8.4-10.2); Carbon Dioxide 33 mmol/L (22-30); Chloride 96 mmol/L (98-107); Estimated Creatinine Clearance 58 ml/min; Glucose 139 mg/dl (70-99); Potassium 4.1 mmol/L (3.5-5.1); Sodium 136 mmol/L (135-145); eGFR > 60.00
--- NOTE | 2024-08-31 11:17 | W.PN.ID1 ---
Date of Service
Date of Service: August 31, 2024
Today's Communication
Continue cefazolin 2g IV q8h (d2)
Assessment / Plan
# LLE nonpurulent cellulitis
# Acute CHF/BLE edema
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
# Chronic afib on Xarelto
# PPM
- Continue cefazolin 2g IV q8h (d2)
-Elevate legs.
- ART-wrap compression to BLE when CHF compensated
Chief Complaint
-: Cellulitis
Subjective / Review of Systems
No complaints today.
Vital Signs / Physical Exam
Vital Signs
Vital Signs
Temp Pulse Resp BP Pulse Ox
98.5 F 61 17 100/53 95
08/31/24 07:42 08/31/24 08:29 08/31/24 07:42 08/31/24 08:29 08/31/24 07:42
Physical Exam
Constitutional: No Acute Distress
Cardiovascular: Regular Rate and S1/S2
Pulmonary: Other (Decreased breathe sound left base)
Gastrointestinal: Soft, Non Tender, Non Distended and Normal Bowel Sounds
Extremities: Edema (BLE edema) and Erythema (LLE stable without extension past marked line)
Neurological: AO x 3
Objective Data
Lab Data
Lab Results
08/31/24 08:49
08/31/24 08:49
Estimated Creat Clear 58 ml/min 08/31/24 08:49
Total Bilirubin 0.5 mg/dl (0.2-1.3) 08/27/24 11:51
AST 65 U/L (17-59) H 08/27/24 11:51
ALT 30 U/L (0-50) 08/27/24 11:51
Alkaline Phosphatase 151 U/L (38-126) H 08/27/24 11:51
Most recent labs reviewed.
Micro Results:
08/27/24 21:58 MRSA Screen - Final
Nose No Methicillin Resistant Staphylococcus aureus isolated.
08/28/24 Peripheral Vascular US: No sonographic evidence for lower extremity venous thrombosis.
08/27/24 CXR: Small left pleural effusion with associated probable atelectasis.
--- NOTE | 2024-08-31 11:28 | PTOTSP ---
Addendum entered and electronically signed by ST Kenny 08/31/24 11:29:
5. Oral care 2-3 xdaily
Original Note:
Dysphagia Evaluatioin
Patient presents with signs concerning for possible mild pharyngeal and/or esophageal dysphagia. CXR 08/27 w/o PNA. Patient declined further instrumental swallowing assessment. Acute dysphagia risk factors include recent XRT (hx prostate CA with
bone and brain metastases.)
Recommend:
1. IDDSI 7 Regular, Thin
2. Medications: in puree
3. Strategies: upright to 90 degrees/OOB in chair if possible, pick soft/moist foods, alternate sips/bites, cough/swallow if wet vocal quality noted, reflux precautions
4. Brief dysphagia for further education and instruction in compensations pending GOC
[2024-08-31] MEDS: THERAGRAN 1 TABLET PO (13:00)
[2024-08-31] MEDS: NEUTRA-PHOS POWDER PACKET 250 MG PO (13:05)
[2024-08-31] MEDS: TYLENOL 1000 MG PO (13:42)
[2024-08-31] MEDS: MELATONIN 10 MG PO (22:50)
[2024-09-01] VITALS (7 sets, daily range): BP systolic 84–113; BP diastolic 45–65; BMI 22.6
[2024-09-01] MEDS: ANCEF 10 IV ×3 (01:21→17:01)
[2024-09-01] MEDS: TYLENOL 1000 MG PO ×2 (05:40→17:03)
[2024-09-01] MEDS: MIRALAX PO ×2 (08:30→08:44)
[2024-09-01] MEDS: ProAmatine 2.5 MG PO ×3 (08:31→17:00)
[2024-09-01] MEDS: MYRBETRIQ EXTENDED RELEASE 50 MG PO (08:32)
[2024-09-01] MEDS: FEOSOL 325 MG PO ×2 (08:32→20:23)
[2024-09-01] MEDS: XARELTO 20 MG PO (08:32)
[2024-09-01] MEDS: COLACE 200 MG PO (08:32)
[2024-09-01] MEDS: TOPROL XL 12.5 MG PO (08:32)
[2024-09-01] MEDS: PROTONIX 40 MG PO (08:32)
[2024-09-01] MEDS: VITAMIN D3 (cholecalciferol) 25 MCG PO (08:32)
[2024-09-01] MEDS: TYLENOL #3 1 TABLET PO ×2 (08:33→20:24)
[2024-09-01] MEDS: LASIX 40 MG PO ×2 (08:33→16:55)
[2024-09-01] MEDS: DECADRON 4 MG PO ×2 (08:33→20:24)
[2024-09-01] MEDS: CITROMA 75 ML PO (08:42)
--- NOTE | 2024-09-01 09:27 | W.PN.HOSP.TC ---
Today's Communication/Plan
-
see plan
Assessment / Plan
Assessment / Plan
Gen: NAD, Awake and alert.
Eyes: EOMI, PERRLA, no scleral icterus.
Neck: supple.
CV: RRR, +S1/S2, 1/6 systolic murmur
Resp: Decreased BS L base
Abd: +BS, soft, NT, ND
Skin: LLE with ART wrap in place, 1-2+ B/L LE edema
Neuro: CN 2-12 intact, non-focal.
Psych: Normal mood and affect.
CXR: Small left pleural effusion with associated probable atelectasis.
Echo: Normal biventricular size and systolic function without regional wall motion abnormality. Mild aortic regurgitation. Mild pulmonary hypertension. Compared to the prior on 04/06/21, the ejection fraction is now normal. The PASP is now 45mmHg.
B/L LE U/S: No sonographic evidence for lower extremity venous thrombosis.
Acute on chronic HFpEF:
-CXR/echo above
-proBNP 2340
-was on IV Lasix, now transitioned to PO Lasix
-daily wts, I/Os
-cont BB
-cardiology following
-with hypotension Midodrine 2.5mg TID started 08/30/24
LLE cellulitis:
-cont Ancef as per ID
-elevate LEs, compression
Chronic atrial fibrillation:
-h/o PPM
-cont BB/Xarelto
Other problems:
Hypokalemia: resolved
h/o prior L oculomotor nerve palsy
h/o Hyponatremia, none currently
Anemia of chronic disease: Hb stable
h/o prostate cancer with sacral metastases: just completed a cycle of XRT, cont Decadron
Recurrent headaches
Pt's daughter updated over the phone at length on 08/30/24.
FULL/Xarelto
Anticipated Discharge: 24 - 48 hours
Subjective/Interval History
-
Date of Service: September 01, 2024
c/o constipation, denies SOB.
Objective Data
-
Vital Signs:
Vital Signs
Temp Pulse Resp BP Pulse Ox
97.9 F 60 17 110/55 97
09/01/24 07:33 09/01/24 08:33 09/01/24 07:33 09/01/24 08:33 09/01/24 07:33
I&O
08/31/24 09/01/24 09/02/24
06:59 06:59 06:59
Intake Total 960 / 960 900 / 900
Balance 960 / 960 900 / 900
[2024-09-01] MEDS: THERAGRAN 1 TABLET PO (13:19)
[2024-09-01] MEDS: NEUTRA-PHOS POWDER PACKET 250 MG PO (13:21)
--- NOTE | 2024-09-01 15:43 | W.PN.ID1 ---
Date of Service
Date of Service: September 01, 2024
Today's Communication
Continue antibiotics
Assessment / Plan
# LLE nonpurulent cellulitis
# Acute CHF/BLE edema
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
# Chronic afib on Xarelto
# PPM
- Continue cefazolin 2g IV q8h (d#3)
- Elevate legs as is possible
- Continue LUIS A-wrap compression to BLE
Chief Complaint
-: Cellulitis
Subjective / Review of Systems
Review of Systems: No Fever and No Chills
Vital Signs / Physical Exam
Vital Signs
Vital Signs
Temp Pulse Resp BP Pulse Ox
98.7 F 61 18 90/53 96
09/01/24 15:00 09/01/24 15:00 09/01/24 15:00 09/01/24 15:00 09/01/24 15:00
Physical Exam
Constitutional: No Acute Distress
Cardiovascular: Regular Rate and S1/S2
Pulmonary: Non Labored
Gastrointestinal: Normal Bowel Sounds
Extremities: Edema (BLE edema) and Erythema (Ongoing left lower extremity erythema noted. Luis A wrap in place.)
Neurological: AO x 3
Objective Data
Lab Data
Lab Results
08/31/24 08:49
08/31/24 08:49
Estimated Creat Clear 58 ml/min 08/31/24 08:49
Total Bilirubin 0.5 mg/dl (0.2-1.3) 08/27/24 11:51
AST 65 U/L (17-59) H 08/27/24 11:51
ALT 30 U/L (0-50) 08/27/24 11:51
Alkaline Phosphatase 151 U/L (38-126) H 08/27/24 11:51
Most recent labs reviewed.
Micro Results:
08/27/24 21:58 MRSA Screen - Final
Nose No Methicillin Resistant Staphylococcus aureus isolated.
08/28/24 Peripheral Vascular US: No sonographic evidence for lower extremity venous thrombosis.
08/27/24 CXR: Small left pleural effusion with associated probable atelectasis.
[2024-09-01] MEDS: MELATONIN 10 MG PO (20:24)
[2024-09-02] MEDS: ANCEF 10 IV ×3 (01:47→17:01)
[2024-09-02 02:51] VITALS: BP 96/55
[2024-09-02 06:00] VITALS: BMI 22.4
[2024-09-02 06:15] LABS: Hematocrit 27.4 % (39.0-52.0); Hemoglobin 8.8 g/dL (13.0-18.0); Mean Corp Hgb Conc. 32.1 g/dL (33.0-37.0); Mean Corpuscular Volume 96.5 fL (80.0-94.0); Mean Platelet Volume 11.1 fL (7.4-10.4); Platelet Count 71 10^3/uL (130-400); Red Blood Cell Count 2.84 10^6/uL (4.70-6.10); Red Cell Dist. Width 16.7 % (11.5-14.5); White Blood Cell Count 3.6 10^3/uL (4.8-10.8)
[2024-09-02 06:33] LABS: Blood Urea Nitrogen 41 mg/dl (9-20); Calcium 8.8 mg/dl (8.4-10.2); Carbon Dioxide 31 mmol/L (22-30); Chloride 95 mmol/L (98-107); Estimated Creatinine Clearance 39 ml/min; Glucose 157 mg/dl (70-99); Potassium 4.5 mmol/L (3.5-5.1); Sodium 136 mmol/L (135-145); eGFR 58.53
[2024-09-02 07:04] VITALS: BP 96/59
[2024-09-02] MEDS: DECADRON 4 MG PO ×2 (08:28→19:41)
[2024-09-02] MEDS: ProAmatine 2.5 MG PO (08:28)
[2024-09-02] MEDS: XARELTO 20 MG PO (08:28)
[2024-09-02] MEDS: LASIX 40 MG PO ×2 (08:29→16:57)
[2024-09-02] MEDS: COLACE 200 MG PO (08:29)
[2024-09-02] MEDS: PROTONIX 40 MG PO (08:29)
[2024-09-02] MEDS: VITAMIN D3 (cholecalciferol) 25 MCG PO (08:29)
[2024-09-02] MEDS: MYRBETRIQ EXTENDED RELEASE 50 MG PO (08:29)
[2024-09-02] MEDS: FEOSOL 325 MG PO ×2 (08:30→19:41)
[2024-09-02] MEDS: TYLENOL #3 1 TABLET PO ×2 (08:30→19:41)
[2024-09-02] MEDS: TOPROL XL PO (08:30)
[2024-09-02] MEDS: CITROMA 75 ML PO (08:37)
[2024-09-02] MEDS: MIRALAX PO (08:38)
[2024-09-02] MEDS: ANESTHETIC LOZENGE 1 LOZENGE PO (08:51)
--- NOTE | 2024-09-02 09:58 | W.PN.HOSP.TC ---
Addendum entered and electronically signed by Juno Pickard MD 09/02/24 14:52:
Pancytopenia, follow plts (drop noted) suspect consumptive due to cellulitis
Pt's daughter updated again over the phone. Pt is enrolled in palliative care and the pt's daughter would like them to see the pt in consult.
Original Note:
Today's Communication/Plan
-
see plan
Assessment / Plan
Assessment / Plan
Gen: remains NAD, Awake and alert.
Eyes: EOMI, PERRLA, no scleral icterus.
Neck: supple.
CV: RRR, +S1/S2, 1/6 systolic murmur
Resp: Decreased BS L base, faint rales B/L LEs
Abd: +BS, soft, NT, ND
Skin: B/L LEs with knee high ART wrap in place with cellulitis extending proximally to both thighs, 1-2+ B/L LE edema
Neuro: CN 2-12 intact, non-focal.
Psych: Normal mood and affect.
CXR: Small left pleural effusion with associated probable atelectasis.
Echo: Normal biventricular size and systolic function without regional wall motion abnormality. Mild aortic regurgitation. Mild pulmonary hypertension. Compared to the prior on 04/06/21, the ejection fraction is now normal. The PASP is now 45mmHg.
B/L LE U/S: No sonographic evidence for lower extremity venous thrombosis.
Acute on chronic HFpEF:
-CXR/echo above
-proBNP 2340
-was on IV Lasix, now transitioned to PO Lasix
-daily wts, I/Os
-cont BB
-cardiology following
-with hypotension Midodrine 2.5mg TID started 08/30/24. Increase to 5mg TID.
LLE cellulitis:
-cont Ancef for now as per ID
-Dr. Mendez to see later today to determine if abx should be changed
-elevate LEs, compression (thigh high)
Chronic atrial fibrillation:
-h/o PPM
-cont BB/Xarelto
Other problems:
Hypokalemia: resolved
h/o prior L oculomotor nerve palsy
h/o Hyponatremia, none currently
Anemia of chronic disease: Hb stable
h/o prostate cancer with sacral metastases: just completed a cycle of XRT, cont Decadron
Recurrent headaches
Pt's daughter (Jaquelin) updated over the phone at length on 09/02/24.
FULL/Xarelto
Dispo: barrier to d/c is improvement in B/L LE cellulitis. Overall, unfortunately, the pt's prognosis is poor.
Anticipated Discharge: > 48 hours
Subjective/Interval History
-
Date of Service: September 02, 2024
Denies CP/SOB.
Objective Data
-
Labs:
Laboratory Results
09/02/24
04:47
WBC 3.6 L
Hgb 8.8 L
Hct 27.4 L
Plt Count 71 L D
Sodium 136
Potassium 4.5
Chloride 95 L
Carbon Dioxide 31 H
BUN 41 H
Creatinine 1.2
Glucose 157 H
Calcium 8.8
Vital Signs:
Vital Signs
Temp Pulse Resp BP Pulse Ox
97.6 F 61 18 96/59 95
09/02/24 07:04 09/02/24 08:29 09/02/24 07:04 09/02/24 08:29 09/02/24 07:04
I&O
09/01/24 09/02/24 09/03/24
06:59 06:59 06:59
Intake Total 900 / 900 520 / 520
Output Total 300 / 300
Balance 900 / 900 220 / 220
[2024-09-02 11:00] VITALS: BP 97/57
--- NOTE | 2024-09-02 13:30 | W.PN.ID1 ---
Date of Service
Date of Service: September 02, 2024
Today's Communication
Continue antibiotics. See below�
Assessment / Plan
# LLE nonpurulent cellulitis
# Acute CHF/BLE edema
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
# Chronic afib on Xarelto
# PPM
- Continue cefazolin 2g IV q8h (d#4) while inpatient
- At discharge, can transition to oral cephalexin 500mg QID, to continue for an additional 5 days.
- Elevate legs as is possible
- Continue LUIS A-wrap compression to BLE.
- Daughter at bedside and reports that patient may have difficulty with Luis A wrap. I advised that additional home health aides may be necessary.
����������������������������������������������������������
Chief Complaint
-: Cellulitis
Subjective / Review of Systems
No fevers. No significant pain in left leg.
Vital Signs / Physical Exam
Vital Signs
Vital Signs
Temp Pulse Resp BP Pulse Ox
97.7 F 61 18 97/57 97
09/02/24 11:00 09/02/24 11:00 09/02/24 11:00 09/02/24 11:00 09/02/24 11:00
Physical Exam
Constitutional: No Acute Distress, Comfortable, Chronically Ill, Non-toxic and Other (Frail)
Cardiovascular: S1/S2; Negative S3/S4
Pulmonary: Non Labored
Gastrointestinal: Non Distended
Extremities: Edema (1-2+ bilateral lower extremity edema following removal of Luis A wrap.) and Erythema (Ongoing left lower extremity erythema, although no significant warmth or tenderness with palpation.)
Neurological: Awake and Alert
Psychological: Calm
Objective Data
Lab Data
Lab Results
09/02/24 04:47
09/02/24 04:47
Estimated Creat Clear 39 ml/min 09/02/24 04:47
Total Bilirubin 0.5 mg/dl (0.2-1.3) 08/27/24 11:51
AST 65 U/L (17-59) H 08/27/24 11:51
ALT 30 U/L (0-50) 08/27/24 11:51
Alkaline Phosphatase 151 U/L (38-126) H 08/27/24 11:51
Most recent labs reviewed.
Micro Results:
08/27/24 21:58 MRSA Screen - Final
Nose No Methicillin Resistant Staphylococcus aureus isolated.
08/28/24 Peripheral Vascular US: No sonographic evidence for lower extremity venous thrombosis.
08/27/24 CXR: Small left pleural effusion with associated probable atelectasis.
Care Review
Plan reviewed with: Physician (Hospitalist)
[2024-09-02] MEDS: THERAGRAN 1 TABLET PO (13:41)
[2024-09-02] MEDS: ProAmatine 5 MG PO ×2 (13:41→17:00)
[2024-09-02] MEDS: NEUTRA-PHOS POWDER PACKET 250 MG PO (13:41)
[2024-09-02 15:00] VITALS: BP 93/56
[2024-09-02] MEDS: TYLENOL 1000 MG PO (17:04)
[2024-09-02 19:08] VITALS: BP 97/49
[2024-09-02] MEDS: MELATONIN 10 MG PO (23:11)
[2024-09-02 23:34] VITALS: BP 101/60
[2024-09-03] VITALS (8 sets, daily range): BP systolic 93–109; BP diastolic 51–62; PULSE 62; BMI 22.4
[2024-09-03] MEDS: ANCEF 10 IV (02:58)
--- NOTE | 2024-09-03 07:44 | W.PN.CD ---
Today's Communication / Plan
-
Cont PO lasix bid
We will sign off please call with questions/concerns.
Impression / Plan
-
Repossessor: Tosin
LE Edema: stable/improved
- Likely multifactorial; some component of acute on chronic HFpEF.
- Echocardiogram 08/28/24: EF 60-65%; mild AR.
- IV Lasix stopped due to hypotension
- Unfortunately, his blood pressure will preclude continuing high-dose diuretics.
- Continue Lasix 40 mg PO BID, which should be new home regimen.
- Given clinical decline overall and poor prognosis, discussions with palliative care/hospice should be initiated.
Widely metastatic prostate cancer
- Likely poor prognosis.
PPM:
-Normal function by tele and device check, CHASTITY estimated 6 months from 08/18/2024.
-Stable.
Permanent AFib/AT:
- Continue current dose of Toprol-XL.
- Continue Xarelto.
Subjective:
Interval mild improvement of b/l LE otherwise no new complaints
Physical Exam
Vital Signs/Labs
Vital Signs
Temp Pulse Resp BP Pulse Ox
97.6 F 61 17 98/51 96
09/03/24 07:01 09/03/24 07:01 09/03/24 07:01 09/03/24 07:01 09/03/24 07:01
09/02/24 09/03/24 09/04/24
06:59 06:59 06:59
Actual Weight 138 lb 9.6 oz
09/02/24 04:47
09/02/24 04:47
08/27/24
11:51
Fji-Y-Bbejnogylgm Pept 2340
Physical Exam
Constitutional: No acute distress and Comfortable
EENT: Anicteric
Cardiovascular: Rhythm & rate is regular and Pedal edema present (wrapped today but LE foot swelling)
Respiratory: Respiratory effort normal and Lungs clear to auscul.
GI: Soft
Neuro/Psych: Alert and Oriented
Data Reviewed
-
Date of Service: September 03, 2024
Medical Decision Making: Reviewed Test Results
EKG: Tracing Personally Visualized and interpreted (paced)
Echo: Report Reviewed by me
Labs: Labs Reviewed by me
[2024-09-03] MEDS: DECADRON 4 MG PO ×2 (08:19→21:01)
[2024-09-03] MEDS: LASIX 40 MG PO ×2 (08:19→17:55)
[2024-09-03] MEDS: ProAmatine 5 MG PO ×3 (08:19→17:56)
[2024-09-03] MEDS: MYRBETRIQ EXTENDED RELEASE 50 MG PO (08:19)
[2024-09-03] MEDS: XARELTO 20 MG PO (08:19)
[2024-09-03] MEDS: COLACE 200 MG PO (08:19)
[2024-09-03] MEDS: PROTONIX 40 MG PO (08:22)
[2024-09-03] MEDS: FEOSOL 325 MG PO ×2 (08:24→21:02)
[2024-09-03] MEDS: TYLENOL #3 1 TABLET PO ×2 (08:24→21:01)
[2024-09-03] MEDS: MIRALAX 17 GRAMS PO (08:24)
[2024-09-03] MEDS: VITAMIN D3 (cholecalciferol) 25 MCG PO (08:24)
[2024-09-03] MEDS: TOPROL XL PO (08:30)
--- NOTE | 2024-09-03 10:41 | W.PN.HOSP.TC ---
Today's Communication/Plan
-
Continue oral diuretics with caution monitoring renal function.
Transition to oral antibiotics per
Continue wound care.
Social work consultation with consideration of SNF rehab discharge with possibly hospice transition
Assessment / Plan
Assessment / Plan
Impression
Bilateral lower extremity edema chronic.
Bilateral lower extremity cellulitis with underlying chronic lower extremity edema. Superficial nonpurulent wounds.
Hypotension
Pancytopenia
Other conditions
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
Deteriorating performance status
Permanent atrial fibrillation
Anticoagulation using Xarelto
Status post PPM
Plan
Bilateral lower extremity edema, chronic
Initial concern for decompensated CHF, although patient presents with stable respiratory status, chest x-ray with minimal bilateral pleural effusions with without evidence of pulmonary edema. Noted for elevated pro CHF BNP above his baseline,
although no significant response with IV diuresis with weight unchanged since admission on 08/27
Lasix transition to p.o. at increased dose at 40 mg twice daily
Volume status and renal function need to be monitored closely on increased dose of loop diuretics given overall deteriorating performance status, hypotension requiring midodrine and now increasing creatinine at 1.2 with worsening metabolic alkalosis
Bilateral lower extremity cellulitis in the settings of chronic lower extremity edema with superficial wounds
Afebrile, nontoxic-appearing
No evidence of systemic infection
Lower extremity Doppler negative for DVT (patient is on Xarelto)
Continue wound care
Transition to oral antibiotics as recommended cefazolin�cephalexin 500 mg 4 times daily through 09/08
Pancytopenia.
? If related to diffuse metastatic disease possibly with bone marrow involvement
Patient known with diffuse skeletal and intracranial metastasis.
Noted decreasing platelet count 114- 71.
Monitor closely. Would consider to hold anticoagulation if trending down below 70
Permanent atrial fibrillation.
Continue Toprol-XL
Continue anticoagulation with Xarelto with caution given thrombocytopenia as above.
Widely metastatic prostate carcinoma with deteriorating performance status.
Known skeletal metastasis.
Known intracranial metastasis treated with systemic corticosteroids.
Goals of care discussion with patient's daughter Jaquelin over the phone.
Patient with overall deteriorating performance status, lives alone would benefit from [facility] facility rehab with further determination in terms of hospice transition
Also brought up advanced directive discussion, which is to be continued with review of patient's living will in the presence of family.
Anticipated Discharge: 24 - 48 hours
Subjective/Interval History
-
Date of Service: September 03, 2024
Objective Data
-
Vital Signs:
Vital Signs
Temp Pulse Resp BP Pulse Ox
97.6 F 61 17 98/51 96
09/03/24 07:01 09/03/24 08:30 09/03/24 07:01 09/03/24 08:30 09/03/24 07:01
I&O
09/02/24 09/03/24 09/04/24
06:59 06:59 06:59
Intake Total 520 / 520 580 / 580
Output Total 300 / 300 200 / 200 150 / 150
Balance 220 / 220 380 / 380 -150 / -150
Physical Exam
-
General: Well Developed and No Apparent Distress
HEENT: Normocephalic, Atraumatic and Moist Mucous Membranes
Respiratory: Clear to Auscultation
Cardiac: Regular Rhythm and S1/S2; Negative Murmur, Rub or Gallop
GI: Soft, Nontender, Nondistended and Normal Bowel Sounds; Negative Organomegaly
Rectal: Deferred by Provider
Musculoskeletal: No Clubbing, No Cyanosis and No Edema
Skin: Negative Rash
Neuro: Nonfocal/Grossly Intact
--- NOTE | 2024-09-03 10:48 | W.PN.ID1 ---
Date of Service
Date of Service: September 03, 2024
Today's Communication
Hold ART-wrap compression for now.
Assessment / Plan
# New RLE and bilateral thigh erythema likely due to subcutaneous petechial hemorrhage
- Suspect due to tight ART-Wrap compression, pt on anticoagulation
- Hold ART-compression for now.
- Elevate BLE.
# LLE nonpurulent cellulitis
- Continue cefazolin 2g IV q8h (d#5) while inpatient
- At discharge, can transition to oral cephalexin 500mg QID, to continue for an additional 5 days.
# Acute CHF/BLE edema
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
# Chronic afib on Xarelto
# PPM
����������������������������������������������������������
Chief Complaint
-: Cellulitis
Subjective / Review of Systems
Leg swelling better.
Vital Signs / Physical Exam
Vital Signs
Vital Signs
Temp Pulse Resp BP Pulse Ox
97.6 F 61 17 98/51 96
09/03/24 07:01 09/03/24 08:30 09/03/24 07:01 09/03/24 08:30 09/03/24 07:01
Physical Exam
Constitutional: No Acute Distress and Comfortable
Extremities: Edema (RLE>LLE.) and Erythema (New sc hemorrhagic looking erythema lateral right leg extending up posterior calf. LLE: erythema better, new petechial erythema extending up posterior thigh)
Objective Data
Lab Data
Lab Results
09/02/24 04:47
09/02/24 04:47
Estimated Creat Clear 39 ml/min 09/02/24 04:47
Total Bilirubin 0.5 mg/dl (0.2-1.3) 08/27/24 11:51
AST 65 U/L (17-59) H 08/27/24 11:51
ALT 30 U/L (0-50) 08/27/24 11:51
Alkaline Phosphatase 151 U/L (38-126) H 08/27/24 11:51
Most recent labs reviewed.
Micro Results:
08/27/24 21:58 MRSA Screen - Final
Nose No Methicillin Resistant Staphylococcus aureus isolated.
08/28/24 Peripheral Vascular US: No sonographic evidence for lower extremity venous thrombosis.
08/27/24 CXR: Small left pleural effusion with associated probable atelectasis.
[2024-09-03] MEDS: ANCEF IV (10:53)
--- NOTE | 2024-09-03 11:54 | CM ---
Chart reviewed. Per hospitalist, patient can benefit from skilled rehab, poss transition to hospice.
Therapy rec skilled rehab as well. Discussed w/ patient's daughter, Jaquelin, who is agreeable to rehab as patient resides alone and there are multiple flights of stairs that she does not think it is safe for patient to return at current level. Jaquelin
shared patient was at [facility] before and he loved it and would like a referral placed there. CM inquired about hospice transition, Jaquelin stated she is not sure about hospice for patient at this time and would like to focus on skilled rehab for patient
at d/c. Jaquelin asking if CM can discuss rehab need w/ patient as she does not feel comfortable doing so and think it will be better received if CM or hospitalist discuss w/ patient instead.
Referral sent to [facility] in [facility] for review
Plan: SNF ([facility] preferred)
--- NOTE | 2024-09-03 13:10 | PN.CDI ---
CDI
- -
CDI:
Physician Documentation Request
Admit Date: 08/27/24 18:08
Dear Doctor,
Please review the following and provide your response in the progress notes.
Clinical Indicators:
Pt admitted with Acute on chronic HFpEF and bilateral lower extremity cellulitis.
09/03 Progress note: ' Volume status and renal function need to be monitored closely on increased dose of loop diuretics given overall deteriorating performance status, hypotension requiring midodrine and now increasing creatinine at 1.2 with
worsening metabolic alkalosis.'
Laboratory Tests
08/30/24 08/31/24 09/02/24
05:52 08:49 04:47
Creatinine 0.7 0.8 1.2
eGFR > 60.00 > 60.00 58.53
Clarify which of the following accurately represents the patient's renal status:
Acute kidney injury (non-traumatic) - see criteria
Insignificant increase in lab value
Other
Criteria for IRIS*
1 Increase in serum creatinine by > or = to 0.3 mg/dL (> or = to 26.5 micromol/L) within 48 hours, OR
2 Increase in serum creatinine to > or = to 1.5 times baseline, which is known or presumed to have occurred within 7 days, OR
3 Urine volume < 0.5 nL/kg/hour for six hours
Use of terms such as suspected, likely, concern for, or probable (associated with a specific diagnosis that is being evaluated, monitored, or treated as if it exists) are acceptable and can be coded in the inpatient setting, when documented at the
time of discharge.
Thank you,
Pia Mariano RN, BSN
CDI Specialist
[place] [employer]
Please use your independent medical judgment in providing your response.
*Source: Kidney Disease: Improving Global Outcomes (KDIGO) 2012
--- NOTE | 2024-09-03 13:44 | W.CON.PAL ---
Consultation
-
Date/Time Consultation Requested: 09/02
Date/Time Consultation Performed: 09/03
Requesting Provider: Neeraj
Performing Provider: Merle Garibay
Reason for Consult: Goals of Care Discussion
Primary Diagnosis: metastatic prostate cancer
Consult Requested By: Patient's Family and Patient's Physician
Reason for Admission
Illness Course/HPI
89 year old M with metastatic prostate cancer with bone involvement. Known to outpatient palliative care service. Admitted with fluid overload, heart failure and being diuresed. With functional decline over the last few months. Recent
hospitalization for vision issues found to have cranial mets s/p XRT.
Spoke with daughter Jaquelin - plan is for rehab hopefully at [facility] and possible transition to hospice. She is unsure of hospice and would like to see how he does at rehab and go from there. Knows medicare does not cover room and board for hospice and
feels he would want to be home although has multiple levels of steps and lives alone. Let her know i would stop in on him tomorrow and would see how things go at rehab and see him outpatient once he is out of rehab if he does not transition to
hospice.
Objective Data
-
Objective Data:
Vital Signs
Temp Pulse Resp BP Pulse Ox
98 F 62 17 100/57 95
09/03/24 11:09 09/03/24 11:09 09/03/24 11:09 09/03/24 11:09 09/03/24 11:09
Laboratory Results
09/02/24 04:47
09/02/24 04:47
Total Protein 6.1 g/dl (6.3-8.2) L 08/27/24 11:51
Albumin 3.9 g/dl (3.5-5.0) 08/27/24 11:51
Palliative Performance Scale
Palliative Performance Scale:
PPS Level Ambulation Activity & Evidence of Disease Self Care Intake Conscious Level
100% Full Normal Activity & Work; Full Intake Full
No Evidence of Disease
90% Full Normal Activity & Work; Full Normal Full
Some Evidence of Disease
80% Full Normal Activity with Effort Full Normal or Full
Some Evidence of Disease Reduced
70% Reduced Unable Normal Job/Work Full Normal or Full
Significant Disease Reduced
60% Reduced Unable Hobby/Housework Occasional Normal or Full or Confusion
Significant Disease Assistance Reduced
50% Mainly Sit/Lie Unable to do Any Work Considerable Normal or Full or Confusion
Extensive Disease Assistance Req'd Reduced
40% Mainly in Bed Unable to do Most Activity Mainly Assistance Normal or Full or Drowsy;
Extensive Disease Reduced +/- Confusion
30% Totally Bed Unable to do Any Activity Total Care Normal or Full or Drowsy;
Bound Extensive Disease Reduced +/- Confusion
20% Totally Bed Bound Unable to do Any Activity Total Care Minimal to Full or Drowsy;
Extensive Disease Sips +/- Confusion
10% Totally Bed Bound Unable to do Any Activity Total Care Mouth Care Drowsy or Coma;
Extensive Disease Only +/- Confusion
0%
PPS Score Level:
Assessment / Plan
-
Assessment/Plan:
89 year old M with metastatic prostate cancer
-restorative goals at this time
- considering hospice after rehab depending on progress
- will continue to follow as an outpaitnet if he does not transition to hospice
Care Reviewed
Data Reviewed
Echocardiogram: Image Reviewed
Radiology procedure: Image Reviewed and Report Reviewed
Medical Tests: I reviewed
Reviewed with: Patient and Family
--- NOTE | 2024-09-03 14:02 | WOUNDNOTE ---
SARAH (R LATERAL, L MEDIAL)
--- NOTE | 2024-09-03 14:02 | WOUNDNOTE ---
L FOOT (ANTERIOR MEDIAL)
--- NOTE | 2024-09-03 14:03 | WOUNDNOTE ---
L FOOT (DORSAL LATERAL)
--- NOTE | 2024-09-03 14:04 | WOUNDNOTE ---
WO RN note: Patient admitted with CHF, LLE cellulitis. Patient to go to SNF when discharged. He is sleeping in the recliner chair and declines spending any time in bed.
See H&P for complete history.
PMH: palliative care, prostate cancer with sacral mets, s/p XRT brain, CHF, a fib (Xarelto), PPM.
Wound Location and type/assessment: Patient admitted with: LLE weeping edema, dermal openings L dorsal foot, L ankle. L sacral/iliac partial thickness healing wounds suspect from previous ecchymotic area (healing herpetic vs abrasion?). LE's with
scattered red ecchymotic areas (petechia). +1 LE edema. +Pedal pulses. Luis A wraps now on hold d/t petechia. Heels blanchable mild red. L upper lateral heel denuded skin suspect from venous edema.
Appetite: fair.
Pressure redistribution devices in place: Static air overlay on bed (however, patient not using bed). Air chair cushion in recliner chair.
Plan: LLE dressing maintained. Adaptic, alginate, gauze and stockinet applied to open area L foot. Silicone border foam applied to heels. Instructed patient LE elevation and pressure injury prevention measures. t/c SPD and ordered a bariatric air
chair cushion for more cushioning in recliner chair. Patient high risk for pressure injury or worsening of wounds d/t overall medical condition, physician documented poor prognosis.
Will confirm orders with hospitalist and discussed with MARS Quiñones.
Care plan to be updated and will follow as needed.
[2024-09-03] MEDS: KEFLEX 500 MG PO ×3 (14:30→22:20)
[2024-09-03] MEDS: THERAGRAN 1 TABLET PO (14:30)
[2024-09-03] MEDS: NEUTRA-PHOS POWDER PACKET 250 MG PO (14:31)
[2024-09-03] MEDS: MELATONIN 10 MG PO (23:12)
[2024-09-04] VITALS (9 sets, daily range): BP systolic 75–106; BP diastolic 44–60; BMI 21.3
[2024-09-04] MEDS: TYLENOL 1000 MG PO ×3 (04:54→18:43)
[2024-09-04] MEDS: FEOSOL 325 MG PO ×2 (08:35→19:52)
[2024-09-04] MEDS: CITROMA 75 ML PO (08:35)
[2024-09-04] MEDS: PROTONIX 40 MG PO (08:35)
[2024-09-04] MEDS: MYRBETRIQ EXTENDED RELEASE 50 MG PO (08:35)
[2024-09-04] MEDS: XARELTO 20 MG PO (08:35)
[2024-09-04] MEDS: KEFLEX 500 MG PO ×4 (08:35→22:20)
[2024-09-04] MEDS: MIRALAX PO (08:36)
[2024-09-04] MEDS: ProAmatine 5 MG PO ×4 (08:36→22:19)
[2024-09-04] MEDS: LASIX PO (08:36)
[2024-09-04] MEDS: HYDROPHOR 1 APPLIC TOPICAL (08:37)
[2024-09-04] MEDS: DECADRON 4 MG PO ×2 (08:37→19:52)
[2024-09-04] MEDS: COLACE 200 MG PO (08:37)
[2024-09-04] MEDS: TYLENOL #3 1 TABLET PO ×2 (08:37→19:52)
[2024-09-04] MEDS: VITAMIN D3 (cholecalciferol) 25 MCG PO (08:37)
[2024-09-04] MEDS: TOPROL XL PO (08:37)
[2024-09-04] MEDS: ANESTHETIC LOZENGE 1 LOZENGE PO (12:24)
[2024-09-04] MEDS: THERAGRAN 1 TABLET PO (13:21)
[2024-09-04] MEDS: NEUTRA-PHOS POWDER PACKET 250 MG PO (13:21)
--- NOTE | 2024-09-04 13:35 | W.PN.ID1 ---
Date of Service
Date of Service: September 04, 2024
Today's Communication
Continue cefazolin.
Assessment / Plan
# RLE and bilateral thigh erythema likely due to subcutaneous petechial hemorrhage
- Suspect due to recent tight ART-Wrap compression, pt on anticoagulation
- Hold ART-compression for now.
- Elevate BLE.
# LLE nonpurulent cellulitis, improving
- Continue cefazolin 2g IV q8h (d#6) while inpatient
- At discharge, can transition to oral cephalexin 500mg QID, to continue for an additional 4 days.
# Acute CHF/BLE edema
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
# Chronic afib on Xarelto
# PPM
����������������������������������������������������������
Chief Complaint
-: Cellulitis
Vital Signs / Physical Exam
Vital Signs
Vital Signs
Temp Pulse Resp BP Pulse Ox
97.7 F 60 16 92/60 96
09/04/24 11:00 09/04/24 12:15 09/04/24 11:00 09/04/24 12:15 09/04/24 11:59
Physical Exam
Constitutional: No Acute Distress and Comfortable
Cardiovascular: Regular Rate and S1/S2
Pulmonary: Clear
Gastrointestinal: Soft, Non Tender, Non Distended and Normal Bowel Sounds
Extremities: Edema (RLE>LLE.) and Erythema (Stable subcut hemorrhagic looking erythema lateral right leg extending up posterior calf. LLE: erythema better, petechial erythema extending up posterior thigh)
Neurological: Awake
Objective Data
Lab Data
Lab Results
09/02/24 04:47
09/02/24 04:47
Estimated Creat Clear 39 ml/min 09/02/24 04:47
Total Bilirubin 0.5 mg/dl (0.2-1.3) 08/27/24 11:51
AST 65 U/L (17-59) H 08/27/24 11:51
ALT 30 U/L (0-50) 08/27/24 11:51
Alkaline Phosphatase 151 U/L (38-126) H 08/27/24 11:51
Most recent labs reviewed.
Micro Results:
08/27/24 21:58 MRSA Screen - Final
Nose No Methicillin Resistant Staphylococcus aureus isolated.
08/28/24 Peripheral Vascular US: No sonographic evidence for lower extremity venous thrombosis.
08/27/24 CXR: Small left pleural effusion with associated probable atelectasis.
--- NOTE | 2024-09-04 13:53 | W.PN.HOSP.TC ---
Today's Communication/Plan
-
Hypotensive with now rising creatinine
Hold Lasix
Gentle hydration
Continue PT
Rehab placement
Continuing Xarelto with caution monitoring for worsening of thrombocytopenia
Assessment / Plan
Assessment / Plan
Impression
Bilateral lower extremity edema chronic.
Bilateral lower extremity cellulitis with underlying chronic lower extremity edema. Superficial nonpurulent wounds.
Hypotension
Pancytopenia
Other conditions
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
Deteriorating performance status
Permanent atrial fibrillation
Anticoagulation using Xarelto
Status post PPM
Plan
Bilateral lower extremity edema, chronic
Initial concern for decompensated CHF, although patient presents with stable respiratory status, chest x-ray with minimal bilateral pleural effusions with without evidence of pulmonary edema. Noted for elevated pro CHF BNP above his baseline,
although no significant response with IV diuresis with weight unchanged since admission on 08/27
Lasix transitioned to p.o. at increased dose at 40 mg twice daily
Volume status and renal function need to be monitored closely on increased dose of loop diuretics given overall deteriorating performance status, hypotension requiring midodrine and now increasing creatinine at 1.2 with worsening metabolic alkalosis
Hypotensive with creatinine at 1.2. Hold further Lasix. Gentle hydration. Follow BMP.
Bilateral lower extremity cellulitis in the settings of chronic lower extremity edema with superficial wounds
Afebrile, nontoxic-appearing
No evidence of systemic infection
Lower extremity Doppler negative for DVT (patient is on Xarelto)
Continue wound care
Transition to oral antibiotics as recommended cefazolin�cephalexin 500 mg 4 times daily through 09/08
Pancytopenia.
? If related to diffuse metastatic disease possibly with bone marrow involvement
Patient known with diffuse skeletal and intracranial metastasis.
Noted decreasing platelet count 114- 71.
Monitor closely. Would consider to hold anticoagulation if trending down below 70
Permanent atrial fibrillation.
Continue Toprol-XL
Continue anticoagulation with Xarelto with caution given thrombocytopenia as above.
Widely metastatic prostate carcinoma with deteriorating performance status.
Known skeletal metastasis.
Known intracranial metastasis treated with systemic corticosteroids.
Goals of care discussion with patient's daughter Jaquelin over the phone.
Patient with overall deteriorating performance status, lives alone would benefit from retirement facility rehab with further determination in terms of hospice transition
Also brought up advanced directive discussion, which is to be continued with review of patient's living will in the presence of family.
Anticipated Discharge: 24 - 48 hours
Subjective/Interval History
-
Date of Service: September 04, 2024
Objective Data
-
Vital Signs:
Vital Signs
Temp Pulse Resp BP Pulse Ox
97.7 F 60 16 92/60 96
09/04/24 11:00 09/04/24 12:15 09/04/24 11:00 09/04/24 12:15 09/04/24 11:59
I&O
09/03/24 09/04/24 09/05/24
06:59 06:59 06:59
Intake Total 580 / 580 840 / 840
Output Total 200 / 200 650 / 650
Balance 380 / 380 190 / 190
Physical Exam
-
General: Well Developed and No Apparent Distress
HEENT: Normocephalic, Atraumatic and Moist Mucous Membranes
Respiratory: Clear to Auscultation
Cardiac: Regular Rhythm and S1/S2; Negative Murmur, Rub or Gallop
GI: Soft, Nontender, Nondistended and Normal Bowel Sounds; Negative Organomegaly
Rectal: Deferred by Provider
Musculoskeletal: No Clubbing, No Cyanosis and No Edema
Skin: Negative Rash
Neuro: Nonfocal/Grossly Intact
[2024-09-04] MEDS: NSS 1000 IV (14:00)
--- NOTE | 2024-09-04 15:13 | CM ---
CM following re: discharge planning.
Reviewed pt's chart, met with pt, pt's daughter Alecia at bedside. CM spoke to pt's daughter Jaquelin over the phone to update on discharge plan progress.
According to MD pt is medically stable to be discharged.
Both pt and his daughters are aware that [facility] has no bed available and they night not have a male bed available for some times. Pt's daughter Jaquelin expressed her disappointed feelings and she politely stated she will meet with [facility] admissions
director to ask for reconsideration.
In meantime pt and her daughters asked to fax a referral to [facility] and [facility]. A referral to above SNFs made. Awaiting for determination.
D/C plan: preferred SNF.
CM will follow to assist pt with discharge to a preferred SNF.
[2024-09-04 20:11] LABS: Urine Albumin 3+ (Neg - Trace); Urine Bilirubin Negative (Negative); Urine Character Cloudy (Clear); Urine Color Yellow; Urine Glucose Negative (Negative); Urine Ketone 1+ (Negative); Urine Leukocyte 1+ (Negative); Urine Nitrite Negative (Negative); Urine Occult Blood 4+ (Negative); Urine Specific Gravity 1.015 (<1.030); Urine Urobilinogen Negative (Neg - 1+)
[2024-09-04 21:06] LABS: Urine Bacteria Many (Negative); Urine Red Blood Cell 90-100 /HPF (0-2); Urine Squamous Cell 0-2 /LPF (Few)
[2024-09-04 22:14] LABS: Glucose - Point of Care 134 mg/dl (70-99)
--- NOTE | 2024-09-04 22:17 | PTCARENOTE ---
Addendum entered by Diamond Teran RN 09/04/24 23:27:
bp- 78/44, MAP 55, updated HARPER.
Original Note:
/, HARPER Nogueira made aware. new order for midodrine
--- NOTE | 2024-09-04 22:39 | W.PN.UPDATE ---
Update Note
Progress Note Update
0 RN reports patient with low BP 70's/40's, HR 60, 94% RA 18 98.0. Patient seen and evaluated, stating he is in pain all over, Tylenol # 3 was given @1999. denies dizziness, shortness of breath, unable to tolerate staying flat (CHF), also stating
pain in back and neck, will order Midodrine 5mg PO stat, Bengay cream
BP remains 70/40's, same manual. Ox3, lungs rales at base, HR RR, +BS, Lower extremity noted petechiae, erythema + edema) discussed regarding hospice/comfort measures, unsure patient can comprehend at present as he is concentrated on his pain, made
him aware he is being transferred to IMU and will be on a Levophed drip until decisions are made. Daughter Jaquelin updated, and unable to make the code status decision at present.
labs ordered, resulted, hold Metoprolol, Hold Xarelto
AT 0200, Family was called again to update. Daughter Jaquelin and son in law Rosales (POA) was on the phone. Discussed patient's current status. Addressed that patient is on Levophed drip and received 0.25 IV Dilaudid and still in excruciating pain and
unable to give more pain medication at present as SBP still is 80's-90's MAP 55-62. Discussed the comfort measures, code status. Family agreed for DNR DNI at present, and stated will make further decisions upon arrival to hospital.
0300 Patient resting comfortably at present, Family at bed side, again discussion continued, addressed the lab results and the possible treatment needed. Now Levophed is maintained at 12mcg/min which requires ICU. Explained to family Levophed drip
is maintaining the blood pressure at present. Family requesting to keep patient DNR DNI in IMU with Levophed drip and pain medications. No other aggressive measures at present. Family wants their personal lens marker, patient's brother and the other
daughter to be here before they make the decision of comfort measures and they want to keep the BP elevated till they come. Family should be here at 0800. Nursing putty and caulking supervisor made aware.
[2024-09-05] VITALS (29 sets, daily range): BP systolic 73–96; BP diastolic 42–59
[2024-09-05 00:28] LABS: Blood Urea Nitrogen 75 mg/dl (9-20); Calcium 9.4 mg/dl (8.4-10.2); Carbon Dioxide 27 mmol/L (22-30); Chloride 95 mmol/L (98-107); Glucose 106 mg/dl (70-99); Magnesium 3.4 mg/dl (1.6-2.3); Potassium 5.6 mmol/L (3.5-5.1); Sodium 134 mmol/L (135-145)
[2024-09-05] MEDS: LEVOPHED 250 IV ×2 (00:33→05:41)
--- NOTE | 2024-09-05 00:45 | PTCARENOTE ---
received pt from [address] [place] [address] started for low map- see worklist see mar- pt ax3 pain in legs/back- orthopneic. crackles at bases afebrile v paced.
[2024-09-05 00:47] LABS: Hematocrit 25.3 % (39.0-52.0); Mean Corp Hgb Conc. 31.6 g/dL (33.0-37.0); Mean Corpuscular Hgb 30.4 pg (27.0-31.0); Mean Corpuscular Volume 96.2 fL (80.0-94.0); Red Blood Cell Count 2.63 10^6/uL (4.70-6.10); Red Cell Dist. Width 17.2 % (11.5-14.5); White Blood Cell Count 1.3 10^3/uL (4.8-10.8)
[2024-09-05 00:53] LABS: Estimated Creatinine Clearance 15 ml/min; eGFR 19.49
[2024-09-05 01:00] LABS: Platelet Count 10 10^3/uL (130-400)
[2024-09-05] MEDS: NOVOLIN R 0.05 UNITS IV (01:35)
[2024-09-05] MEDS: DEXTROSE 50% SYRINGE 12.5 GRAMS IV (01:35)
[2024-09-05] MEDS: DILAUDID 0.25 MG IV ×4 (01:35→10:36)
--- NOTE | 2024-09-05 04:20 | DOWNTIME ---
Addendum entered and electronically signed by Unique Rubi RN 09/05/24 14:22:
Correction: Downtime was 09/05/2024 from 0100 to 09/05/2024 at 0415
Original Note:
There was a [employer] Downtime on 09/04/2024 from 0100 to 09/05/2024 at 0415. Downtime documentation of patient's care, including medication administrations, has been reconciled in the electronic record per guidelines. Refer to the
patient's paper chart under the miscellaneous tab to see printed paper medication records and downtime forms.
--- NOTE | 2024-09-05 04:24 | PTCARENOTE ---
summary of events- pt transferred from [address] [place] [address] to [facility] imu for hypotension- Levophed gtt started see worklist for rates. severe pain mecicated with Dilaudid . critical plt reported to grid trimmer. renal labs reported to grid trimmer- insulin iv with 1/2 amp d50% given
for high k. pt 's mental status declining. family called by grid trimmer and came in- pt made dnr/dni and family wishes to pursue comfort after brother gets here as well as case work aide to give last rights . after that they sate they will proceed with full comfort
measures . remains in Levo gtt unitl he gets last rights per family wishes.
--- NOTE | 2024-09-05 06:18 | PTCARENOTE ---
pt medicated with Dilaudid. family at bedside- support given- levo remains on. family states plan is to wait for grocery manager to come in for last rights then will opt to turn of Levophed gtt
--- NOTE | 2024-09-05 08:32 | W.PN.HOSP.TC ---
Today's Communication/Plan
-
Transition to comfort care
Assessment / Plan
Assessment / Plan
Impression
Bilateral lower extremity edema chronic.
Bilateral lower extremity cellulitis with underlying chronic lower extremity edema. Superficial nonpurulent wounds.
Hypotension
Pancytopenia
Other conditions
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
Deteriorating performance status
Permanent atrial fibrillation
Anticoagulation using Xarelto
Status post PPM
Plan
Rapidly developing multiple organ failure with progressive encephalopathy, protracted hypotension not responding to IV fluids, acute kidney failure, worsening pancytopenia.
In discussion with patient's family and according to patient wishes CODE STATUS changed to DO NOT RESUSCITATE.
Patient initiated on vasopressor pending rest of the family gathering with plan to transition to full comfort care.
Anticipated Discharge: 24 - 48 hours
Subjective/Interval History
-
Date of Service: September 05, 2024
Objective Data
-
Labs:
Laboratory Results
09/05/24 09/05/24
00:03 06:00
WBC 1.3 L* Cancelled
Hgb 8.0 L Cancelled
Hct 25.3 L Cancelled
Plt Count 10 L* D Cancelled
Sodium 134 L Cancelled
Potassium 5.6 H Cancelled
Chloride 95 L Cancelled
Carbon Dioxide 27 Cancelled
BUN 75 H Cancelled
Creatinine 3.0 H Cancelled
Glucose 106 H Cancelled
Calcium 9.4 Cancelled
Vital Signs:
Vital Signs
Temp Pulse Resp BP Pulse Ox
96.6 F L 60 18 87/51 93
09/05/24 07:29 09/05/24 08:30 09/05/24 08:30 09/05/24 08:00 09/05/24 08:30
I&O
09/04/24 09/05/24 09/06/24
06:59 06:59 06:59
Intake Total 840 / 840 325 / 325
Output Total 650 / 650 450 / 450
Balance 190 / 190 -125 / -125
Physical Exam
-
General: Well Developed and No Apparent Distress
HEENT: Normocephalic, Atraumatic and Moist Mucous Membranes
Respiratory: Clear to Auscultation
Cardiac: Regular Rhythm and S1/S2; Negative Murmur, Rub or Gallop
GI: Soft, Nontender, Nondistended and Normal Bowel Sounds; Negative Organomegaly
Rectal: Deferred by Provider
Musculoskeletal: No Clubbing, No Cyanosis and No Edema
Skin: Negative Rash
Neuro: Other (Lethargic poorly responsive)
[2024-09-05] MEDS: COLACE PO (08:48)
[2024-09-05] MEDS: HYDROPHOR TOPICAL (08:48)
[2024-09-05] MEDS: PROTONIX PO (08:49)
[2024-09-05] MEDS: DECADRON PO (08:49)
[2024-09-05] MEDS: MYRBETRIQ EXTENDED RELEASE PO (08:49)
[2024-09-05] MEDS: ProAmatine PO (08:49)
[2024-09-05] MEDS: TYLENOL #3 PO (08:49)
[2024-09-05] MEDS: MIRALAX PO (08:49)
[2024-09-05] MEDS: KEFLEX PO (08:49)
[2024-09-05] MEDS: FEOSOL PO (08:49)
[2024-09-05] MEDS: VITAMIN D3 (cholecalciferol) PO (08:50)
--- NOTE | 2024-09-05 10:53 | PTCARENOTE ---
Assumed care of pt from mine shifter RN. Pt drowsy and lethargic, opens eye to verbal stimuli. V-paced on tele, HRs 60s. SpO2 94% on room air. Received pt on Levo at 14 mcg/min for goal MAP > 65. Levo turned off at 0954 after pt received last rights
per family wishes. Medicating pt with 0.25 mg IV Dilaudid for pain (see MAR). Pt in bed, family at bedside.
--- NOTE | 2024-09-05 11:21 | PN.CDI ---
CDI
- -
CDI:
Physician Documentation Request
Admit Date: 08/27/24 18:08
Dear Doctor,
Please review the following and provide your response in the progress notes.
Clinical Indicators:
Pt admitted with acute on chronic HFpEF and cellulitis.
09/05 Progress note: 'Rapidly developing multiple organ failure with progressive encephalopathy, protracted hypotension not responding to IV fluids, acute kidney failure, worsening pancytopenia.'
Please specify the known or suspected type of the documented encephalopathy.
Metabolic
Septic
Toxic metabolic
Anoxic
Other
Use of terms such as suspected, likely, concern for, or probable (associated with a specific diagnosis that is being evaluated, monitored, or treated as if it exists) are acceptable and can be coded in the inpatient setting, when documented at the
time of discharge.
Thank you,
Pia Mariano RN, BSN
CDI Specialist
[place] [facility]
Please use your independent medical judgment in providing your response.
--- NOTE | 2024-09-05 11:28 | PN.CDI ---
CDI
- -
CDI:
Physician Documentation Request
Admit Date: 08/27/24 18:08
Dear Doctor,
Please review the following and provide your response in the progress notes.
Clinical Indicators:
The diagnosis of Acute on chronic HFpEF was documented on 09/02, but is not consistently noted in subsequent documentation.
09/02 Progress Note: ' Acute on chronic HFpEF:
-CXR/echo above
-proBNP 2340
-was on IV Lasix, now transitioned to PO Lasix'
09/04 Progress Note: ' Bilateral lower extremity edema, chronic
Initial concern for decompensated CHF, although patient presents with stable respiratory status, chest x-ray with minimal bilateral pleural effusions with without evidence of pulmonary edema. Noted for elevated pro CHF BNP above his baseline,
although no significant response with IV diuresis with weight unchanged since admission on 08/27'
Please clarify the following:
Acute on chronic HFpEF was present on admission and is now resolved.
Acute on chronic HFpEF was ruled out
Acute on chronic HFpEF is still a likely, suspected, probable diagnosis
Other
Use of terms such as suspected, likely, concern for, or probable (associated with a specific diagnosis that is being evaluated, monitored, or treated as if it exists) are acceptable and can be coded in the inpatient setting, when documented at the
time of discharge.
Thank you,
Pia Mariano RN, BSN
CDI Specialist
[place] [facility]
Please use your independent medical judgment in providing your response.
--- NOTE | 2024-09-05 11:35 | PN.CDI ---
CDI
- -
CDI:
Physician Documentation Request
Admit Date: 08/27/24 18:08
Dear Doctor,
Please review the following and provide your response in the progress notes.
Current documentation includes a diagnosis of hypotension.
Clinical Indicators:
Pt admitted with bilateral lower extremity cellulitis,initial concern for CHF.
09/04 update: 'RN reports patient with low BP 70's/40's, HR 60, 94% RA 18 98.0. Patient seen and evaluated, stating he is in pain all over, Tylenol # 3 was given @1999. denies dizziness, shortness of breath, unable to tolerate staying flat (CHF),
also stating pain in back and neck, will order Midodrine 5mg PO stat, Bengay cream
BP remains 70/40's, same manual. Ox3, lungs rales at base...'he is being transferred to IMU and will be on a Levophed drip'
09/05 Progress Note: 'Bilateral lower extremity cellulitis with underlying chronic lower extremity edema. Superficial nonpurulent wounds.
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
pancytopenia.'
Please clarify which of the following is the most likely etiology of the above symptoms and treatment rendered:
Septic shock
Cardiogenic shock
Hypovolemic shock
Hypotension - unknown type/etiology
Other
Use of terms such as suspected, likely, concern for, or probable (associated with a specific diagnosis that is being evaluated, monitored, or treated as if it exists) are acceptable and can be coded in the inpatient setting, when documented at the
time of discharge.
Thank you,
Pia Mariano RN, BSN
CDI Specialist
[place] [facility]
Please use your independent medical judgment in providing your response.
[2024-09-05] MEDS: NSS (PRESERVATIVE FREE) 0.5 ML IV (11:36)
[2024-09-05] MEDS: DILAUDID 1 MG IV ×2 (11:36→13:05)
[2024-09-05] MEDS: ATIVAN 1 MG IV (11:37)
--- NOTE | 2024-09-05 14:17 | W.PN.DEATH ---
Pronouncement of
-
Called to see patient to pronounce.
No spontaneous heart tones or respirations noted.
Patient not responsive to verbal stimuli.
Patient is pronounced .
Time of : 13:40
Date of : 09/05/24
Cause of : Metastatic prostate CA
Family Notified: No
--- NOTE | 2024-09-05 14:44 | CM ---
Patient with Hx Metastatic prostate carcinoma with Dx b/l LE edema/cellulitis, pancytopenia. Comfort care.
Met with patient, with extensive # of family present in room (approximately 15-20+ family members), family talking to patient, crying and hugging family members and expressing grief. Nurse in room noting patient had passed. Daughter conveyed
patient had already seen shaper hand twice and stated no assistance was needed at this time.
== END 2024-09-05 15:43 | disposition expired | DRG 602 ==
LOC: IMU 18:08
PROVIDERS: Emergency Medicine; Nurse Practitioner Gerontology; ADMITTING PHYSICIAN Internal Medicine; ATTENDING PHYSICIAN Internal Medicine; CONSULT PHYSICIAN Internal Medicine Cardiovascular Disease; CONSULT PHYSICIAN Nurse Practitioner Gerontology; EMERGENCY PHYSICIAN Emergency Medicine; FAMILY PHYSICIAN Family Medicine; OTHER PHYSICIAN Internal Medicine Infectious Disease
DX: L03.116 Cellulitis of left lower limb (principal); G93.41 Metabolic encephalopathy; I50.33 Acute on chronic diastolic (congestive) heart failure; C79.31 Secondary malignant neoplasm of brain; I48.21 Permanent atrial fibrillation; C79.51 Secondary malignant neoplasm of bone; D61.818 Other pancytopenia; N17.9 Acute kidney failure, unspecified; C61 Malignant neoplasm of prostate; H49.02 Third [oculomotor] nerve palsy, left eye; D63.8 Anemia in other chronic diseases classified elsewhere; I95.9 Hypotension, unspecified; Z79.01 Long term (current) use of anticoagulants; E87.6 Hypokalemia; E87.5 Hyperkalemia; Z66 Do not resuscitate; R62.7 Adult failure to thrive; Z68.21 Body mass index [BMI] 21.0-21.9, adult; Z51.5 Encounter for palliative care; Z79.899 Other long term (current) drug therapy; Z95.0 Presence of cardiac pacemaker
CPT/HCPCS: 71046; 80048; 80053; 81003; 81015; 82962; 83735; 83880; 85025; 85027; 87070; 87086; 92526; 92610; 93306; 93970; 96374; 97116; 97162; 97166; 97530; 99285